=== PATIENT | male | born 1940 | race Caucasian/White ===

== ENCOUNTER → 2017-10-27 09:23 | Outpatient (CLI) | payer MEDICARE, SELFPAY ==
--- NOTE | 2017-10-27 11:11 | RAD_ITS ---
STUDY: X-RAY - LUMBAR SPINE REASON FOR EXAM: Male, 77 years old. Chronic low back pain. TECHNIQUE: 3 view(s) of the lumbar spine were obtained. COMPARISON: Comparison is made with prior study dated February 04, 2017. FINDINGS: Normal lumbar lordosis. There is no substantial scoliosis. Grade 1 anterior listhesis of L4 on L5. There is multilevel endplate spondylosis of the lumbar vertebrae. There is multi-level degenerative disc disease with multi-level disc space narrowing. Facet joint osteoarthritis. Transitional vertebrae at the lumbosacral junction. Phleboliths are seen within the pelvis. RAD/Lumbar Spine 2 or 3 Views IMPRESSION: Degenerative changes of the spine, as detailed above. Electronically Signed: Cristiano Allen MD at 15:11 EST Tel [phone], Service support ,
[2017-10-27 11:40] LABS: Absolute Lymphocyte Count 1.62 X10^3/ul (0.83-4.51); Absolute Neutrophil Count 3.8 X10^3/uL (2.0-7.7); Basophil# 0.04 X10^3/uL; Basophil% 0.6 % (0-1); Eosinophils% 3.2 % (0-5); Hemoglobin 14.2 g/dl (13.0-16.5); Lymphocyte # 1.62 X10^3/ul (4.0); Lymphocyte % 26.3 % (19-41); Mean Corp Hgb Conc 32.3 g/gl (32-36); Mean Corpuscular Hgb 28.3 pg (27.0-32.0); Mean Corpuscular Volume 87.6 fL (80-94); Mean Platelet Vol. 10.1 fl (6.2-12.0); Monocyte# 0.49 X10^3/uL; Neutrophil # 3.81 X10^3/uL (2.7-7.7); Neutrophil % 61.9 % (47-70); Platelet Count 217 K/mm3 (150-450); RBC Distribution Width CV 14.9 % (11.6-14.6); RBC Distribution Width SD 47.7 fl (35.1-43.9); Red Blood Count 5.02 M/mm3 (4.6-6.2); White Blood Count 6.2 K/mm3 (4.4-11.0)
[2017-10-27 11:44] LABS: POSITIVE COUNT NO; POSITIVE DIFFERENTIAL NO; POSITIVE MORPHOLOGY NO
[2017-10-27 12:08] LABS: ALB/GLOB Ratio 0.9 RATIO (0.9-2.4); AST(SGOT) 30 U/L (15-37); Alanine Aminotransfer ALT/SGPT 42 U/L (16-61); Albumin, Serum 3.8 g/dL (3.2-5.0); Alkaline Phosphatase 44 U/L (45-117); Anion Gap 8 (5-15); BUN 20 mg/dL (7-18); BUN/Creat Ratio 19.4 RATIO (10-20); Calcium,Total 9.2 mg/dL (8.5-10.1); Chloride 105 mmol/L (98-107); Creatinine, Serum 1.03 mg/dL (0.70-1.30); EST Glomerular Filtration Rate 75 mL/min (>60); Est Glom Filt Rate - Afr Amer 90 mL/min (>60); Globulin 4.2 g/dL (2.2-4.2); Glucose 102 mg/dL (70-110); Potassium 3.6 mmol/L (3.5-5.1); Sodium Level 140 mmol/L (136-145); Thyroid Stim Hormone (TSH) 1.14 uIU/mL (0.358-3.74)
== END ==
PROVIDERS: Family Provider Family Medicine Geriatric Medicine; PCP Family Medicine Geriatric Medicine; Visit Provider Family Medicine Geriatric Medicine
DX: I10 Essential (primary) hypertension (principal); M54.5 Low back pain
CPT/HCPCS: 36415; 72100; 80053; 84443; 85025

== ENCOUNTER → 2018-04-13 16:01 | Outpatient (CLI) | payer MEDICARE, SELFPAY ==
[2018-04-13 17:11] LABS: International Normalized Ratio 1.1
[2018-04-13 17:12] LABS: Partial Thromboplast Time 26.8 Seconds (24.1-36.2)
[2018-04-13 17:16] LABS: Absolute Lymphocyte Count 1.96 X10^3/ul (0.83-4.51); Absolute Neutrophil Count 4.3 X10^3/uL (2.0-7.7); Basophil# 0.04 X10^3/uL; Basophil% 0.6 % (0-1); Eosinophil# 0.21 X10^3/uL; Eosinophils% 2.9 % (0-5); Hemoglobin 13.3 g/dl (13.0-16.5); Lymphocyte # 1.96 X10^3/ul (4.0); Lymphocyte % 27.5 % (19-41); Mean Corp Hgb Conc 32.4 g/gl (32-36); Mean Corpuscular Hgb 28.6 pg (27.0-32.0); Mean Corpuscular Volume 88.2 fL (80-94); Mean Platelet Vol. 10.1 fl (6.2-12.0); Monocyte# 0.61 X10^3/uL; Monocyte% 8.5 % (0-10); Neutrophil % 60.2 % (47-70); Platelet Count 235 K/mm3 (150-450); RBC Distribution Width CV 14.7 % (11.6-14.6); RBC Distribution Width SD 47.3 fl (35.1-43.9); Red Blood Count 4.65 M/mm3 (4.6-6.2); White Blood Count 7.1 K/mm3 (4.4-11.0)
[2018-04-13 17:24] LABS: POSITIVE COUNT NO; POSITIVE DIFFERENTIAL NO; POSITIVE MORPHOLOGY NO
[2018-04-13 18:37] LABS: Anion Gap 9 (5-15); BUN 22 mg/dL (7-18); Calcium,Total 9.3 mg/dL (8.5-10.1); Chloride 108 mmol/L (98-107); EST Glomerular Filtration Rate 69 mL/min (>60); Est Glom Filt Rate - Afr Amer 84 mL/min (>60); Glucose 69 mg/dL (74-106); Sodium Level 143 mmol/L (136-145)
== END ==
PROVIDERS: Family Provider Family Medicine Geriatric Medicine; PCP Family Medicine Geriatric Medicine; Visit Provider Family Medicine Geriatric Medicine
DX: Z01.810 Encounter for preprocedural cardiovascular examination (principal); Z01.818 Encounter for other preprocedural examination
CPT/HCPCS: 36415; 80048; 85025; 85610; 85730

== ENCOUNTER → 2018-07-04 15:27 | Outpatient (CLI) | payer MEDICARE, SELFPAY ==
[2018-07-04 16:33] LABS: Absolute Lymphocyte Count 2.36 X10^3/ul (0.83-4.51); Absolute Neutrophil Count 6.6 X10^3/uL (2.0-7.7); Basophil# 0.05 X10^3/uL; Basophil% 0.5 % (0-1); Eosinophil# 0.22 X10^3/uL; Eosinophils% 2.2 % (0-5); Hematocrit 41.4 % (40-54); Hemoglobin 13.1 g/dl (13.0-16.5); Lymphocyte # 2.36 X10^3/ul (4.0); Lymphocyte % 23.8 % (19-41); Mean Corp Hgb Conc 31.6 g/gl (32-36); Mean Corpuscular Hgb 27.4 pg (27.0-32.0); Mean Corpuscular Volume 86.6 fL (80-94); Mean Platelet Vol. 9.7 fl (6.2-12.0); Monocyte# 0.68 X10^3/uL; Monocyte% 6.9 % (0-10); Neutrophil # 6.59 X10^3/uL (2.7-7.7); Neutrophil % 66.5 % (47-70); Platelet Count 249 K/mm3 (150-450); Red Blood Count 4.78 M/mm3 (4.6-6.2); White Blood Count 9.9 K/mm3 (4.4-11.0)
[2018-07-04 16:36] LABS: POSITIVE COUNT NO; POSITIVE DIFFERENTIAL NO; POSITIVE MORPHOLOGY NO
[2018-07-04 17:15] LABS: Vitamin D,25 Hydroxy 28.7 ng/mL (29.95-100.01)
[2018-07-04 17:19] LABS: ALB/GLOB Ratio 0.8 RATIO (0.9-2.4); AST(SGOT) 27 U/L (15-37); Alanine Aminotransfer ALT/SGPT 34 U/L (16-61); Albumin, Serum 3.4 g/dL (3.2-5.0); Alkaline Phosphatase 50 U/L (45-117); Anion Gap 8 (5-15); BUN 17 mg/dL (7-18); BUN/Creat Ratio 17.6 RATIO (10-20); Calcium,Total 9.2 mg/dL (8.5-10.1); Chloride 105 mmol/L (98-107); Creatinine, Serum 0.97 mg/dL (0.70-1.30); EST Glomerular Filtration Rate 80 mL/min (>60); Est Glom Filt Rate - Afr Amer 97 mL/min (>60); Globulin 4.2 g/dL (2.2-4.2); Glucose 88 mg/dL (74-106); Protein, Total 7.6 g/dL (6.4-8.2); Sodium Level 142 mmol/L (136-145); Thyroid Stim Hormone (TSH) 1.06 uIU/mL (0.358-3.74)
== END ==
PROVIDERS: Family Provider Family Medicine Geriatric Medicine; PCP Family Medicine Geriatric Medicine; Visit Provider Family Medicine Geriatric Medicine
DX: I10 Essential (primary) hypertension (principal); E55.9 Vitamin D deficiency, unspecified
CPT/HCPCS: 36415; 80053; 82306; 84443; 85025

== ENCOUNTER 2018-07-18 17:42 | Emergency (ER) | payer MEDICARE, SELFPAY ==
[2018-07-18 17:44] VITALS: BP 175/93; PULSE 71; RESP 16; TEMP 37.1; O2SAT 97; BMI 31.7
[2018-07-18] MEDS: Penicillin Vk 250 MG Tablet 500 MG PO (18:14)
--- NOTE | 2018-07-18 18:35 | ED.VISSUMM ---
- ER Visit Summary Date of Service: 07/18/18 Chief Complaint: Lip laceration History of Present Illness: The patient is a 78 M who tripped on a step and fell striking his face. He suffered a lip laceration. He denies loss of consciousness, headache, neck pain. His tetanus is up-to-date. He takes baby aspirin, but no other anticoagulants. Physical Examination: Blood pressure 175/93, other vitals normal. Patient sitting upright in bed. Head neck examination is significant for a 2 cm laceration to the lower lip with significant lower lip swelling. He does have chipped areas to the very inferior border of the maxillary central incisors. Teeth are stable. There is no C-spine tenderness. Heart is regular rate and rhythm. Lungs clear. Neuro exam is unremarkable. Test Results: [] Emergency Department Course and Treatment: Wound is anesthetized with 3 cc 1% lidocaine locally. Wound is cleansed and irrigated. Skin is closed with 7 simple interrupted sutures of 5-0 absorbable Vicryl. Patient is treated with PenMaryVee K will continue this at home. Treatment Plan: [] Disposition: Discharge Impression: Lip laceration status post suture This note was generated with [employer] dictation software. It may contain incorrect words, spelling, and punctuation that were not noted in review of the chart prior to signing ED Disposition - Plan for ED Patient: Chief Complaint: Laceration Referrals: Omkar Lawrence Chi, MD [Primary Care Provider] -
--- NOTE | 2018-07-18 18:36 | ED.DEP ---
ED Disposition - Plan for ED Patient: Disposition: Home or Assisted Living Chief Complaint: Laceration Instructions: ED Laceration Mouth Prescriptions: Penicillin V Potassium 500 mg PO 4X/DAY #40 tablet Referrals: Omkar Lawrence Chi, MD [Primary Care Provider] - 1-2 Weeks
[2018-07-18 18:43] VITALS: BP 154/87; PULSE 61; RESP 17; O2SAT 95
== END 2018-07-18 18:46 | disposition home or self-care (01) ==
PROVIDERS: Emergency Provider Emergency Medicine; Family Provider Family Medicine Geriatric Medicine; PCP Family Medicine Geriatric Medicine
DX: S01.511A Laceration without foreign body of lip, initial encounter (principal); S02.5XXA Fracture of tooth (traumatic), initial encounter for closed fracture; W10.9XXA Fall (on) (from) unspecified stairs and steps, initial encounter; Y93.9 Activity, unspecified; Y92.9 Unspecified place or not applicable; Y99.9 Unspecified external cause status; I10 Essential (primary) hypertension; N40.0 Benign prostatic hyperplasia without lower urinary tract symptoms; Z79.82 Long term (current) use of aspirin; Z87.891 Personal history of nicotine dependence; Z79.899 Other long term (current) drug therapy
CPT/HCPCS: 12011; 99283

== ENCOUNTER → 2019-01-04 11:12 | Outpatient (CLI) | payer MEDICARE, SELFPAY ==
[2019-01-04 12:52] LABS: Absolute Neutrophil Count 3.4 X10^3/uL (2.0-7.7); Basophil# 0.04 X10^3/uL; Basophil% 0.6 % (0-1); Eosinophil# 0.36 X10^3/uL; Eosinophils% 5.7 % (0-5); Hematocrit 42.1 % (40-54); Hemoglobin 13.5 g/dl (13.0-16.5); Lymphocyte % 31.8 % (19-41); Mean Corp Hgb Conc 32.1 g/gl (32-36); Mean Corpuscular Hgb 27.8 pg (27.0-32.0); Mean Corpuscular Volume 86.6 fL (80-94); Mean Platelet Vol. 9.9 fl (6.2-12.0); Monocyte# 0.52 X10^3/uL; Monocyte% 8.3 % (0-10); Neutrophil # 3.37 X10^3/uL (2.7-7.7); Neutrophil % 53.6 % (47-70); Platelet Count 218 K/mm3 (150-450); RBC Distribution Width CV 15.1 % (11.6-14.6); RBC Distribution Width SD 47.9 fl (35.1-43.9); Red Blood Count 4.86 M/mm3 (4.6-6.2); White Blood Count 6.3 K/mm3 (4.4-11.0)
[2019-01-04 12:58] LABS: POSITIVE COUNT NO; POSITIVE DIFFERENTIAL NO; POSITIVE MORPHOLOGY NO
[2019-01-04 13:07] LABS: Vitamin D,25 Hydroxy 34.7 ng/mL (29.95-100.01)
[2019-01-04 13:10] LABS: AST(SGOT) 30 U/L (15-37); Alanine Aminotransfer ALT/SGPT 35 U/L (16-61); Albumin, Serum 3.6 g/dL (3.2-5.0); Alkaline Phosphatase 44 U/L (45-117); Anion Gap 7 (5-15); BUN 26 mg/dL (7-18); Calcium,Total 9.3 mg/dL (8.5-10.1); Chloride 107 mmol/L (98-107); Creatinine, Serum 1.04 mg/dL (0.70-1.30); EST Glomerular Filtration Rate 74 mL/min (>60); Est Glom Filt Rate - Afr Amer 89 mL/min (>60); Globulin 3.7 g/dL (2.2-4.2); Glucose 94 mg/dL (74-106); Potassium 3.9 mmol/L (3.5-5.1); Protein, Total 7.3 g/dL (6.4-8.2); Sodium Level 141 mmol/L (136-145)
== END ==
PROVIDERS: Family Provider Family Medicine Geriatric Medicine; PCP Family Medicine Geriatric Medicine; Referring Provider Family Medicine Geriatric Medicine; Visit Provider Family Medicine Geriatric Medicine
DX: I10 Essential (primary) hypertension (principal); E55.9 Vitamin D deficiency, unspecified
CPT/HCPCS: 36415; 80053; 82306; 84443; 85025

== ENCOUNTER 2019-03-10 10:10 | Day surgery (SDC) | payer MEDICARE, SELFPAY ==
[2019-03-03 09:17] VITALS: BP 153/89; PULSE 64; RESP 16; TEMP 36.8; O2SAT 95; BMI 32.5
--- NOTE | 2019-03-03 09:22 | SDCEKG_ITS ---
Test Reason : Blood Pressure : / mmHG Vent. Rate : 061 BPM Atrial Rate : 061 BPM P-R Int : 170 ms QRS Dur : 128 ms QT Int : 436 ms P-R-T Axes : 050 -46 034 degrees QTc Int : 438 ms Normal sinus rhythm Left axis deviation Non-specific intra-ventricular conduction block Abnormal ECG Confirmed by MARYANA WILLOUGHBY, CECILIA ([id number]), newspaper copy editor SUSIE JIMENEZ ([id number]) on 03/07/2019 8:55:46 AM Referred By: Zac Vega Confirmed By:CECILIA MIJARES MD
[2019-03-10] VITALS (11 sets, daily range): BP systolic 128–177; BP diastolic 79–99; PULSE 50–74; RESP 16–18; TEMP 36.7–37.5; O2SAT 92–99; BMI 32.5
--- NOTE | 2019-03-10 11:27 | DCINST_ITS ---
Discharge Diet: Light diet - advance as tolerated Discharge Activity: Return to Normal Activity Call your doctor if your incision/area has: Continuous Slow Oozing, Sudden Increased Bleeding Call your doctor if you observe: Fever of 101 or Higher Suture Line Care: Avoid Pulling/Pushing, Avoid Pinching/Bending Allergies/Adverse Reactions: Allergies prednisone Adverse Reaction (Verified 03/03/19 09:17) ORAL THRUSH Medications to take at Discharge Amlodipine Besylate/Benazepril [Amlodipine-Benazepril 5-20 mg] 1 tab PO BID 11/02/14 Aspirin [Aspirin, Baby] 81 mg PO DAILY@0800 11/02/14 Metoprolol Tartrate 50 mg PO BID 11/02/14 Multivitamins,Therapeutic [Multivitamin] 1 tablet PO DAILY 11/02/14 Docusate Sodium [Colace] 100 mg PO BID PRN PRN #10 capsule 08/27/15 Biotin 10,000 mcg PO DAILY 03/03/19 Calcium Carbonate/Vitamin D3 [Calcium 500-Vit D3 600 Caplet] 1 each PO DAILY 03/03/19 Cyanocobalamin [Vitamin B12] 1,200 mcg SL DAILY@0800 03/03/19 [place]-3 Fatty Acids/Fish Oil [[place] 3 Fish Oil Softgel] 1 each PO DAILY 03/03/19 Pravastatin [Pravachol] 40 mg PO QHS 03/03/19 [address] [place] 320 mg PO DAILY 03/03/19 Tamsulosin HCl [Flomax] 0.4 mg PO QHS 03/03/19 Acetaminophen [Tylenol Extra Strength] 500 mg PO Q4H PRN PRN #20 tab 03/10/19 Ciprofloxacin [Cipro] 500 mg PO BID #6 tab 03/10/19 Ibuprofen 600 mg PO Q6H PRN PRN #20 tab 03/10/19 The following prescriptions were given: Acetaminophen [Tylenol Extra Strength] 500 mg PO Q4H PRN PRN #20 tab PRN Reason: Pain Ibuprofen 600 mg PO Q6H PRN PRN #20 tab PRN Reason: Pain Ciprofloxacin [Cipro] 500 mg PO BID #6 tab Primary Care Physician: Omkar Lawrence Chi, MD [Primary Care Provider] - Test Results: Test results from this visit will be discussed in further detail at your follow- up appointment, if applicable. Please Follow Up With: Zac Vega MD When: in 2 weeks, please call to make an appointment.
[2019-03-10] MEDS: Cefazolin 2 GM in 0.9% Normal Saline 100 ML IV (11:44)
--- NOTE | 2019-03-10 11:50 | PROS_PTH ---
PATIENT: ALEXANDER PETIT LOC: [facility] [place][id number] AGE/SX: 78/M ROOM: RE03/10/[address]: Dr. Zac Vega MD : [id number] BED: DIS: 03/11/2019 SPEC #: [id number] RECD: 03/10/19 12:55 STATUS: GISELA REKatie #: [id number] PETE: 03/10/19 11:[address]: Zac Vega DEPT: SURGICAL PATHOLOGY RECD BY: Samir Espinoza ENTERED: 03/10/19 13:36 SP TYPE: TURP OTHR DR: Dr. Omkar Lawrence MD Tissues: Prostate, NOS Procedures: Surgery Specimen Level IV HEADER OPERATION: Cystoscopy, TUR of prostate PRE-OP DIAGNOSIS: Benign prostatic hyperplasia with lower urinary tract symptoms; frequent micturition; nocturia; urgency of bladder TISSUE SUBMITTED: Prostate tissue MICROSCOPIC DIAGNOSIS Prostate tissue, TUR: Benign prostatic hyperplasia, glandular and stromal type. Chronic inflammation. SJ:alison 03/13/19 MICROSCOPIC DESCRIPTION Slides are reviewed. GROSS DESCRIPTION Received is one container labeled with the patient's name and designated prostate tissue. The specimen consists of multiple irregular fragments of pink-morales, rubbery, soft tissue that in aggregate weigh 11.9 gm and measure in aggregate 6.5 x 6 x 0.2 cm. The entire specimen is submitted in nine cassettes. / AM:alison 03/10/19 TC:5 CPT: 64973
--- NOTE | 2019-03-10 12:28 | OP.PCM_ITS ---
Report of Operation Date of Procedure: 03/10/19 Pre-Operative Diagnosis: BPH with obstruction Post-Operative Diagnosis: The same Surgery/Procedure Performed:: Transurethral resection of the prostate Description of Surgical Findings:: Indication 78-year-old male with large prostate with a lot of obstruction and urinary symptoms we did an evaluation and recommended the option of a TURP as a reasonable choice to alleviate his urinary symptoms he understands the risk of the surgery include bleeding infection scar tissue formation. Patient was taken back to the operating room at the smooth induction of general anesthesia he was placed in dorsolithotomy position went into the bladder with a 24 Montenegrin noncontinuous flow resectoscope he did have a large median lobe and he had lateral tissue I proceeded with resection of the median lobe then resected the lateral tissue in the right side and the lateral tissue in the left side all the chips were Ellik out out of the bladder after complete resection of the prostate with a wide open channel from the verumontanum into the bladder I inspected the bladder the left and right ureteral orifice were in place all the chips were Ellik out there is no tumors stones within the bladder placed a 22 Montenegrin catheter into the bladder and continuous irrigation he was taken back to the PACU in good condition the urine was clear. As a complete resection of the prostate. Type of Anesthesia:: General Drains: 22fr 3 way. - Admit VTE Documentation VTE Present on Admission: No VTE Mechan Device Prophylaxis: SCD's
[2019-03-10] MEDS: 0.9% Normal Saline 1,000 ML 75 ML IV (14:10)
[2019-03-10] MEDS: Cefazolin 1 GM/50 ML BAG IV (21:29)
[2019-03-10] MEDS: Metoprolol Tartrate 50 MG Tablet PO (21:31)
[2019-03-10] MEDS: Pravastatin 40 MG Tablet PO (21:31)
[2019-03-10] MEDS: Docusate Sodium 100 MG Capsule PO (21:34)
[2019-03-11] MEDS: Cefazolin 1 GM/50 ML BAG IV (03:28)
[2019-03-11] MEDS: 0.9% Normal Saline 1,000 ML 75 ML IV (03:29)
[2019-03-11 03:45] VITALS: BP 133/71; PULSE 54; RESP 16; TEMP 36.8; O2SAT 93
[2019-03-11 06:19] LABS: Hematocrit 40.4 % (40-54); Mean Corp Hgb Conc 32.2 g/gl (32-36); Mean Corpuscular Hgb 27.6 pg (27.0-32.0); Mean Corpuscular Volume 85.8 fL (80-94); Mean Platelet Vol. 9.4 fl (6.2-12.0); Platelet Count 231 K/mm3 (150-450); RBC Distribution Width SD 47.1 fl (35.1-43.9); Red Blood Count 4.71 M/mm3 (4.6-6.2); White Blood Count 11.5 K/mm3 (4.4-11.0)
[2019-03-11 06:27] LABS: Scan Indicated on CBC? Y/N NO
[2019-03-11 06:38] LABS: Anion Gap 9 (5-15); BUN 17 mg/dL (7-18); BUN/Creat Ratio 15.9 RATIO (10-20); Calcium,Total 8.3 mg/dL (8.5-10.1); Chloride 105 mmol/L (98-107); Creatinine, Serum 1.07 mg/dL (0.70-1.30); EST Glomerular Filtration Rate 71 mL/min (>60); Est Glom Filt Rate - Afr Amer 86 mL/min (>60); Estimated Creatinine Clearance 58.73 ml/min; Glucose 117 mg/dL (74-106); Potassium 3.8 mmol/L (3.5-5.1); Sodium Level 140 mmol/L (136-145)
[2019-03-11 07:59] VITALS: BP 148/68; PULSE 53; RESP 16; TEMP 36.6; O2SAT 92
[2019-03-11 09:41] VITALS: PULSE 60
[2019-03-11] MEDS: Metoprolol Tartrate 50 MG Tablet PO (09:41)
[2019-03-11] MEDS: Lisinopril 20 MG Tablet PO (09:42)
[2019-03-11] MEDS: amLODIPine 5 MG Tablet PO (09:42)
[2019-03-11] MEDS: Pantoprazole Sodium 40 MG Tablet PO (09:50)
[2019-03-11] MEDS: Docusate Sodium 100 MG Capsule PO (09:50)
[2019-03-11 11:54] VITALS: BP 137/76; PULSE 58; RESP 16; TEMP 36.8; O2SAT 95
== END 2019-03-11 11:45 | disposition home or self-care (01) ==
LOC: SDC 10:16 → AC 10:17 → MS3 10:25
PROVIDERS: Family Provider Family Medicine Geriatric Medicine; PCP Family Medicine Geriatric Medicine; Referring Provider Urology; Visit Provider Urology
PROC: (CPT 52601; principal; 2019-03-10 11:40)
DX: N40.1 Benign prostatic hyperplasia with lower urinary tract symptoms (principal); N41.1 Chronic prostatitis; N13.8 Other obstructive and reflux uropathy; R35.1 Nocturia; R35.0 Frequency of micturition; R39.15 Urgency of urination; N39.498 Other specified urinary incontinence; I10 Essential (primary) hypertension; E78.00 Pure hypercholesterolemia, unspecified; Z79.82 Long term (current) use of aspirin; Z79.899 Other long term (current) drug therapy
CPT/HCPCS: 52601; 36415; 80048; 85027; 88305; 93005; J7030; J7120; J2405

== ENCOUNTER 2019-03-28 02:45 | Observation (INO) | payer MEDICARE, SELFPAY ==
[2019-03-10 14:02] VITALS: BMI 32.5
[2019-03-28] VITALS (9 sets, daily range): BP systolic 135–190; BP diastolic 72–116; PULSE 66–93; RESP 16–18; TEMP 36.5–37; O2SAT 93–98; BMI 31.7; BMI 30.9
--- NOTE | 2019-03-28 03:33 | ED.VISSUMM ---
- ER Visit Summary Date of Service: 03/28/19 Chief Complaint: Urinary retention History of Present Illness: The patient is a 79 M who underwent a TURP on March [address] Vega. He states that he has had some pink urine and today noticed some clots in the urine. He went to the office was not having any retention. Tonight however the clots got larger and by late tonight when he got up to urinate he is unable to do so so he came to the department. Once here in the department in triage she attempted to urinate large amounts of clots came out. He states he had to be on continuous bladder irrigation after the surgery. Physical Examination: Afebrile vital signs stable Gen: Well-nourished well-developed Head: Normocephalic atraumatic Eyes: Perrl EOMI ENT: TMs clear no rhinorrhea moist mucous membranes Neck: Supple no lymphadenopathy no JVD nontender CVS: Regular rate rhythm no murmurs normal S1-S2 Respiratory: No distress clear to auscultation bilaterally chest nontender Abdomen: Soft nontender nondistended normal bowel sounds no masses Back: Nontender Extremity: Nontender no edema Skin: Normal color no rash Neuro: alert orientated ?3 CN II-XII intact normal strength sensation Psych: Normal affect normal mood Emergency Department Course and Treatment: I spoke with Dr. Vega. We will place him on continuous bladder irrigation and admit to hospital. Patient is comfortable with this plan and appreciative. Impression: 1. Acute urinary retention 2. Gross hematuria This note was generated with [employer] dictation software. It may contain incorrect words, spelling, and punctuation that were not noted in review of the chart prior to signing ED Disposition - Plan for ED Patient: Referrals: Omkar Lawrence Chi, MD [Primary Care Provider] -
[2019-03-28] MEDS: 0.9% Normal Saline 1,000 ML 50 ML IV (05:06)
[2019-03-28] MEDS: 0.9% NaCl Peripheral Flush Adult/Peds IV (05:08)
[2019-03-28] MEDS: Cefazolin 1 GM/50 ML BAG IV ×3 (05:21→22:09)
[2019-03-28] MEDS: Acetaminophen 500 MG Tablet PO ×2 (07:23→15:09)
--- NOTE | 2019-03-28 07:42 | HP.PCM_ITS ---
History and Physical Date of Admission: 03/28/19 CC/HPI: ALEXANDER PETIT is a 78 year-old male patient who was referred by ERICA SUGGS M.D. who is here for symptoms of enlarged prostate. 78 yo male new pt referred for BPH, He c/o frequency day and night, urgency, can have UUI, feels like bladder doesn't empty. Dr Mcmullen at [facility] evaluated him about 3 yrs ago, CT and cysto, put him on tamsulosin. Pt has also continued to take saw palmetto. He has been treated with Flomax and Rapaflo. The patient has never had a surgical procedure for bladder outlet obstruction to his prostate. He does not have any family members who have been diagnosed with prostate cancer. He underwent a TURP recently pathology was benign, he presented to the hospital with gross hematuria a few weeks after his surgery he will be admitted for bladder irrigation. He AUA Symptom Score: He never has the sensation of not emptying his bladder completely after finishing urinating. Almost always he has to urinate again fewer than two hours after he has finished urinating. Less than 20% of the time he has to start and stop again several times when he urinates. Almost always he finds it difficult to postpone urination. He never has a weak urinary stream. He never has to push or strain to begin urination. He has to get up to urinate 5 or more times from the time he goes to bed until the time he gets up in the morning. Calculated AUA Symptom Score: 16 QOL Score: He would feel unhappy if he had to live with his urinary condition the way it is now for the rest of his life. Calculated QOL Symptom Score: 5 ALLERGIES: Steroids MEDICATIONS: Amlodipine Besilate Aspir 81 Biotin Calcium + D3 Metoprolol Tartrate Multivitamin [place] 3 Pravastatin Sodium Saw [place] Tamsulosin Hcl 0.4 mg capsule Vitamin B12 PSH: None NON- PSH: Colonoscopy Foot Surgery Knee Surgery (Unspecified) Patient documented to have received pneumococcal vaccination Shoulder Surgery (Unspecified) PMH: Benign prostatic hyperplasia with lower urinary tract symptoms - 01/23/2019 Urgency of urination - 01/23/2019 Frequency of micturition Nocturia Unspecified urinary incontinence NON- PMH: Essential (primary) hypertension Immunizations: None FAMILY HISTORY: Strokes - Father, Grandfather SOCIAL HISTORY: Marital Status: Preferred Language: Armenian; Ethnicity: Not Or ; Race: White Current Smoking Status: Patient has never smoked. Does not use smokeless tobacco. Has never drank. Does not use drugs. Drinks 4+ caffeinated drinks per day. Has not had a blood transfusion. REVIEW OF SYSTEMS: Constitutional: Patient denies fever, chills, weight loss, and weight gain. Eyes: Patient denies blurry vision, cataracts, and glaucoma. Ears, Nose, Mouth, Throat: Patient denies hearing loss, sinus infections, and sleep apnea. Cardiovascular: Patient denies chest pains, swollen ankles, irregular heartbeat, and pacemaker/defib. Respiratory: Patient denies shortness of breath, wheezing, oxygen, and cpap machine. Gastrointestinal: Patient denies nausea, vomiting, abdominal pain, diarrhea, and constipation. Genitourinary: Patient has gross hematuria and retention of urine. History of stones, difficulty starting stream, weak stream/scanty, and bedwetting. Musculoskeletal: Patient denies sore muscles, back pain, and gout. Integumentary/Skin: Patient denies rash, skin cancer, and chronic itching. Neurological: Patient denies falling/unsteady, paralysis, and stroke/tia. Hematologic/Lymphatic: Patient denies abnormal bleeding, blood transfusion, swollen lymph nodes, deep venous thrombosis, and pulmonary embolism. VITAL SIGNS: 02/09/2019 04:00 PM Weight 226 lb / 102.51 kg Height 69 in / 175.26 cm BP 142/90 mmHg PHYSICAL EXAMINATION: Anus and Perineum: No hemorrhoids. No anal stenosis. No rectal fissure, no anal fissure. No edema, no dimple, no perineal tenderness, no anal tenderness. Scrotum: No lesions. No edema. No cysts. No warts. Epididymides: Right: no spermatocele, no masses, no cysts, no tenderness, no induration, no enlargement. Left: no spermatocele, no masses, no cysts, no tenderness, no induration, no enlargement. Testes: No tenderness, no swelling, no enlargement left testes. No tenderness, no swelling, no enlargement right testes. Normal location left testes. Normal location right testes. No mass, no cyst, no varicocele, no hydrocele left testes. No mass, no cyst, no varicocele, no hydrocele right testes. Urethral Meatus: Normal size. No lesion, no wart, no discharge, no polyp. Normal location. Penis: Circumcised, no warts, no cracks. No dorsal Peyronie's plaques, no left corporal Peyronie's plaques, no right corporal Peyronie's plaques, no scarring, no warts. No balanitis, no meatal stenosis. Prostate: Prostate about 50 grams. Left lobe normal consistency, right lobe normal consistency. Symmetrical lobes. No prostate nodule. Left lobe no tenderness, right lobe no tenderness. Seminal Vesicles: Nonpalpable. Sphincter Tone: Normal sphincter. No rectal tenderness. No rectal mass. MULTI-SYSTEM PHYSICAL EXAMINATION: Constitutional: Well-nourished. No physical deformities. Normally developed. Good grooming. Neck: Neck symmetrical, not swollen. Normal tracheal position. Respiratory: No labored breathing, no use of accessory muscles. Normal breath sounds. Cardiovascular: Regular rate and rhythm. No murmur, no gallop. Normal temperature, normal extremity pulses, no swelling, no varicosities. Lymphatic: No enlargement of neck, axillae, groin. Neurologic / Psychiatric: Oriented to time, oriented to place, oriented to person. No depression, no anxiety, no agitation. Gastrointestinal: No mass, no tenderness, no rigidity, non obese abdomen. Eyes: Normal conjunctivae. Normal eyelids. Musculoskeletal: Normal gait and station of head and neck. PAST DATA REVIEWED: Source Of History: Patient ASSESSMENT: ICD-10 Details 1 : Benign prostatic hyperplasia with lower urinary tract symptoms - N40.1 2 Frequency of micturition - R35.0 3 Nocturia - R35.1 4 Urgency of urination - R39.15 Status post TURP for obstruction, presented with bleeding to the hospital, pathology was benign, will continue with bladder irrigation until urine is clear may consider surgical intervention if does not stop bleeding.
[2019-03-28] MEDS: Metoprolol Tartrate 50 MG Tablet PO ×2 (08:21→22:09)
[2019-03-28] MEDS: Multivitamins,Therapeutic Tablet 1 TABLET PO (08:21)
[2019-03-28] MEDS: Calcium Carb/Vitamin D 1 TABLET Tablet PO (08:22)
[2019-03-28] MEDS: amLODIPine 5 MG Tablet PO ×2 (08:22→22:09)
[2019-03-28] MEDS: Cyanocobalamin 500 MCG Tablet 1000 MCG PO (08:22)
[2019-03-28] MEDS: Lisinopril 20 MG Tablet PO ×2 (08:23→22:09)
[2019-03-28] MEDS: Docusate Sodium 100 MG Capsule PO (08:24)
--- NOTE | 2019-03-28 11:25 | CASEMGMT ---
Patient thought his Healthcare POA and Healthcare LW were on file. However, they were not. SW called his Primary Care Doctor's office and they faxed a copper plate printer of the documents. They were then placed in his paper chart. Hallie NEVAREZ
--- NOTE | 2019-03-28 15:50 | CASEMGMT ---
RN ALLA ASSESSMENT DIRECTOR CM to room to meet with patient for initial transition planning/care coordination assessment. SPRING GOLD introduced self and role at [facility]. Pt voices understanding and consents to assessment at this time. Pt resting in bed in no distress at this time. Pt is A/O at this time and answers all questions appropriately. Care providers, pharmacy, and demographics verified/updated at this time. PCP: Howard Specialists: Gary--urology, Teena--cardiology Preferred Pharmacy: [facility] Insurance: [employer] Secure Prescription Benefit: [employer] Living Will/HPOA: Has both HCPOA and LW. States has completed new paperwork recently (Names of POA has not changed). Pt states he will see if his can bring in new forms to have put on file @ [facility]. LNOK: . 3 adult children Living Arrangements: Lives with in one-story home. No steps to enter. Independent with all ADL's. and pt share home mgmt tasks. Transportation: Pt states drives self and states no transportation concerns at this time. will drive pt home @ d/c DME: Denies using any DME and denies needs. HHC/SNF: No history of either and denies needs. No needs identified. Pt wishes to return home. Pt states that if he does end up going home with a catheter that he feels comfortable being able to manage the catheter @ home with his wifes assistance as long as someone instructs them on how to care for it. States his would be able to be home with him tonight if he would get discharged with a catheter this evening and would be able to assist him if needed. Pt states, though, that his has a sleep study scheduled for Wednesday and has concerns if he would have problems during the night Wednesday night that he will be alone and not have anyone to assist him. Pt stated his adult children have to work during the day and would not be able to stay the night. Pt reminded that is a holiday. Pt stated he had forgotten about being a holiday and stated he would check to see if someone would be available to stay with him during the night Wednesday night while his is at her sleep study. Pt states does not smoke or drink ETOH. CM to follow for any discharge planning/needs. Pt voices no further concerns/needs at this time. Advised pt to ask for CM if any further questions/concerns/needs arise. Voices understanding. PLAN: Home w/spousal and family support and discharge plans in place. Bernabe HAMILTONN RN CM
[2019-03-28] MEDS: Tamsulosin HCl 0.4 MG Capsule PO (22:09)
[2019-03-29] VITALS (7 sets, daily range): BP systolic 117–141; BP diastolic 59–87; PULSE 59–80; RESP 16; TEMP 36.7–37.2; O2SAT 94–96
[2019-03-29] MEDS: 0.9% Normal Saline 1,000 ML 50 ML IV ×2 (01:59→23:04)
[2019-03-29] MEDS: Cefazolin 1 GM/50 ML BAG IV ×3 (05:39→21:10)
[2019-03-29] MEDS: Metoprolol Tartrate 50 MG Tablet PO ×2 (07:43→21:09)
[2019-03-29] MEDS: Multivitamins,Therapeutic Tablet 1 TABLET PO (07:43)
[2019-03-29] MEDS: Lisinopril 20 MG Tablet PO ×2 (07:44→21:10)
[2019-03-29] MEDS: Calcium Carb/Vitamin D 1 TABLET Tablet PO (07:44)
[2019-03-29] MEDS: Cyanocobalamin 500 MCG Tablet 1000 MCG PO (07:44)
[2019-03-29] MEDS: amLODIPine 5 MG Tablet PO ×2 (07:44→21:09)
[2019-03-29] MEDS: Docusate Sodium 100 MG Capsule PO (07:46)
--- NOTE | 2019-03-29 14:28 | NURSING ---
manually irrigated pinzon for few small clots
--- NOTE | 2019-03-29 14:56 | CASEMGMT ---
Intro role of CM to patient and JEROME form explained re: Observation status for treatment of blood in urine. Explained hospitalization will be paid per? insurance policy for Outpatient billing?and condition will continue to be evaluated for Inpt necessity. Also let pt know that [facility] sends paper in the billing packet with their phone number if questions arise. Discussed Pharmacy section of JEROME form and self administered medication guideline.? Pt verbalizes understanding and does not have further questions. Form signed and placed in chart, copy to pt. KATIE LONDONO BSN CM
[2019-03-29] MEDS: Tamsulosin HCl 0.4 MG Capsule PO (21:09)
[2019-03-30 03:21] VITALS: BP 125/71; PULSE 61; RESP 12; TEMP 37.2; O2SAT 94
--- NOTE | 2019-03-30 05:15 | EKG12_ITS ---
Test Reason : RHYTHUM CHECK Blood Pressure : / mmHG Vent. Rate : 070 BPM Atrial Rate : 070 BPM P-R Int : 158 ms QRS Dur : 124 ms QT Int : 444 ms P-R-T Axes : 053 -34 054 degrees QTc Int : 479 ms Sinus rhythm with occasional Premature ventricular complexes and Premature atrial complexes Left axis deviation Non-specific intra-ventricular conduction delay Nonspecific T wave abnormality Abnormal ECG Confirmed by SUMANTH WILLOUGHBY, NASH ([id number]), editor dictionary SUSIE JIMENEZ ([id number]) on 04/03/2019 1:45:23 PM Referred By: Zac Vega Confirmed By:NASH JULIO MD
--- NOTE | 2019-03-30 05:16 | NURSING ---
EKG ordered d/t pt heart rate being irregular. No documented history of afib.
[2019-03-30] MEDS: Cefazolin 1 GM/50 ML BAG IV (05:58)
[2019-03-30 08:07] VITALS: BP 121/65; PULSE 67; RESP 12; TEMP 36.8; O2SAT 94
[2019-03-30 08:10] VITALS: PULSE 69
[2019-03-30] MEDS: Multivitamins,Therapeutic Tablet 1 TABLET PO (08:10)
[2019-03-30] MEDS: Metoprolol Tartrate 50 MG Tablet PO (08:10)
[2019-03-30] MEDS: amLODIPine 5 MG Tablet PO (08:10)
[2019-03-30] MEDS: Calcium Carb/Vitamin D 1 TABLET Tablet PO (08:11)
[2019-03-30] MEDS: Cyanocobalamin 500 MCG Tablet 1000 MCG PO (08:11)
[2019-03-30] MEDS: Lisinopril 20 MG Tablet PO (08:11)
--- NOTE | 2019-03-30 09:33 | PCM.DC.URO ---
Discharge Diet: Light diet - advance as tolerated Discharge Activity: Return to Normal Activity Allergies/Adverse Reactions: Allergies prednisone Adverse Reaction (Verified 03/28/19 04:19) ORAL THRUSH Medications to take at Discharge Amlodipine Besylate/Benazepril [Amlodipine-Benazepril 5-20 mg] 1 tab PO BID 11/02/14 Aspirin [Aspirin, Baby] 81 mg PO DAILY@0800 11/02/14 Metoprolol Tartrate 50 mg PO BID 11/02/14 Multivitamins,Therapeutic [Multivitamin] 1 tablet PO DAILY 11/02/14 Docusate Sodium [Colace] 100 mg PO BID PRN PRN #10 capsule 08/27/15 Biotin 10,000 mcg PO DAILY 03/03/19 Calcium Carbonate/Vitamin D3 [Calcium 500-Vit D3 600 Caplet] 1 each PO DAILY 03/03/19 Cyanocobalamin [Vitamin B12] 1,200 mcg SL DAILY@0800 03/03/19 [place]-3 Fatty Acids/Fish Oil [[place] 3 Fish Oil Softgel] 1 each PO DAILY 03/03/19 Pravastatin [Pravachol] 40 mg PO QHS 03/03/19 Saw [place] 320 mg PO DAILY 03/03/19 Tamsulosin HCl [Flomax] 0.4 mg PO QHS 03/03/19 Acetaminophen [Tylenol Extra Strength] 500 mg PO Q4H PRN PRN #20 tab 03/10/19 Ibuprofen 600 mg PO Q6H PRN PRN #20 tab 03/10/19 Primary Care Physician: Omkar Lawrence Chi, MD [Primary Care Provider] - Test Results: Test results from this visit will be discussed in further detail at your follow-up appointment, if applicable. Please Follow Up With: Zac Vega MD When: please call to make an appointment.
--- NOTE | 2019-03-30 09:46 | NURSING ---
pinzon bag changed to leg bag for dc
== END 2019-03-30 09:32 | disposition home or self-care (01) ==
LOC: ED 03:29 → PCU 03:36
PROVIDERS: Admitting Provider Urology; Emergency Provider Emergency Medicine; Family Provider Family Medicine Geriatric Medicine; PCP Family Medicine Geriatric Medicine; Referring Provider Urology; Visit Provider Urology
DX: N40.1 Benign prostatic hyperplasia with lower urinary tract symptoms (principal); R33.8 Other retention of urine; R35.0 Frequency of micturition; R35.1 Nocturia; Z98.890 Other specified postprocedural states; R31.0 Gross hematuria; R39.15 Urgency of urination; I10 Essential (primary) hypertension; Z79.899 Other long term (current) drug therapy; Z79.82 Long term (current) use of aspirin
CPT/HCPCS: 93005; 96365; 96366; 99218; 99282; J7030; A4216; G0378

== ENCOUNTER 2019-03-30 22:18 | Emergency (ER) | payer MEDICARE, SELFPAY ==
[2019-03-28 03:44] VITALS: BMI 30.9
[2019-03-30 22:18] VITALS: BP 170/96; PULSE 110; RESP 24; TEMP 36.8; O2SAT 97; BMI 30.8
--- NOTE | 2019-03-30 22:59 | ED.RN ---
ATTEMPTED TO MANUALLY IRRIGATE SMALL. SOME RETURN NOTED. NO CLOTS. UNABLE TO GET SMALL TO FLOW FREELY. ATTEMPTED TO DEFLATE THE SMALL BALLOON. ONLY 4ML RETURNED FROM BALLOON. SMALL REMOVED WITH NO DIFFICULTY.
--- NOTE | 2019-03-30 23:21 | ED.VISSUMM ---
- ER Visit Summary Date of Service: 03/30/19 Chief Complaint: Urinary retention History of Present Illness: The patient is a 79 M who presents with urinary retention that began tonight. Patient was discharged this morning and was doing better. Patient states that approximately 2 hours prior to arrival he felt some pressure in his lower abdomen and his Jaramillo catheter was not working. Patient denies any fevers or chills. Patient denies any dysuria but admits to some hematuria. Patient denies any back or flank pain. Physical Examination: Vital signs are stable. Patient is afebrile. Patient is in no acute distress. Oral mucosa is pink and moist. Neck is supple. Trachea is midline. There is no JVD noted. Heart was regular rate and rhythm. Lungs are clear and equal bilaterally. Abdomen is soft. Bowel sounds are normal. There is no tenderness. Cranial nerves II through XII are intact. There are no focal motor or sensory deficits noted. Emergency Department Course and Treatment: The Jaramillo catheter had become dislodged. The Jaramillo catheter was changed and is draining red urine. Patient feels better. Patient was instructed to continue his discharge instructions from Dr. Vega. Patient understood and was agreeable with the plan. All questions were answered. Disposition: Discharge home Impression: Urinary retention This note was generated with [employer] dictation software. It may contain incorrect words, spelling, and punctuation that were not noted in review of the chart prior to signing ED Disposition - Plan for ED Patient: Disposition: Home or Assisted Living Diagnosis: Urinary retention Instructions: Caring for Your Indwelling Urinary Catheter Referrals: Omkar Lawrence Chi, MD [Primary Care Provider] - 5-7 Days Zac Vega MD [STAFF PHYSICIAN] - Keep Julissa appointment
== END 2019-03-30 23:48 | disposition home or self-care (01) ==
LOC: ED 23:30
PROVIDERS: Emergency Provider Emergency Medicine; Family Provider Family Medicine Geriatric Medicine; PCP Family Medicine Geriatric Medicine
DX: T83.028A Displacement of other urinary catheter, initial encounter (principal); R33.9 Retention of urine, unspecified; I34.1 Nonrheumatic mitral (valve) prolapse; Z79.899 Other long term (current) drug therapy
CPT/HCPCS: 99282; A4216

== ENCOUNTER → 2019-04-07 11:39 | Outpatient (CLI) | payer MEDICARE, SELFPAY ==
[2019-03-30 22:18] VITALS: BMI 30.8
--- NOTE | 2019-04-07 11:43 | VDLE_ITS ---
Reason For Study: Localized edema RIGHT LEFT GSV is normal. CFV is compressible, spontaneous, phasic, CFV is compressible, spontaneous, phasic, competent, and demonstrates normal competent and demonstrates normal augmentation. augmentation. FV is compressible, spontaneous, phasic, FV is compressible, spontaneous, phasic, competent and demonstrates normal competent and demonstrates normal augmentation. augmentation. POP V is compressible, spontaneous, phasic, POP V is compressible, spontaneous, phasic, competent and demonstrates normal competent and demonstrates normal augmentation. augmentation. T/P Trunk is compressible. T/P Trunk is compressible. PTV is compressible. PTV is compressible. LT PerV is compressible. RT PerV is compressible. Acute deep vein thrombosis is noted in the Procedure left gastroc vein. Exam performed in department. Acute superficial thrombosis is noted in the A preliminary report was called and/or faxed left SSV and GSV. to [facility]. 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 Interpretation Summary Acute deep vein thrombosis is noted in the left gastrocnemius vein. The remainder of the left lower extremity deep venous system is patent and compressible. Deep veins of the right lower extremity are patent and compressible segmentally. There is no evidence of right lower extremity deep vein thrombosis. Valvular competence appears intact within the proximal deep venous systems bilaterally. The right greater saphenous vein appears patent and compressible segmentally. Acute superficial thrombophlebitis is noted in the left great saphenous vein and small saphenous vein, as well as in the superficial varicosities of the left medial calf. Ordering Physician: Omkar Lawrence Referring Physician: Omkar Lawrence Chi Performed By: Marychuy Paiz RVMony
== END ==
PROVIDERS: Family Provider Family Medicine Geriatric Medicine; PCP Family Medicine Geriatric Medicine; Visit Provider Family Medicine Geriatric Medicine
DX: R60.0 Localized edema (principal); N39.0 Urinary tract infection, site not specified
CPT/HCPCS: 87086; 87088; 93970

== ENCOUNTER → 2019-04-19 09:57 | Outpatient (CLI) | payer MEDICARE, SELFPAY ==
[2019-03-30 22:18] VITALS: BMI 30.8
--- NOTE | 2019-04-19 10:00 | VDLE_ITS ---
Reason For Study: Localized edema RIGHT LEFT CFV is compressible, spontaneous, phasic, CFV is compressible, spontaneous, phasic, competent and demonstrates normal competent, and demonstrates normal augmentation. augmentation. Procedure FV is compressible, spontaneous, phasic, Exam performed in department. competent and demonstrates normal A preliminary report was called and/or faxed augmentation. to [facility]. POP V is compressible, spontaneous, phasic, competent and demonstrates normal augmentation. T/P Trunk is compressible. PTV is compressible. LT PerV is compressible. Acute deep vein thrombosis is noted in the left Gastroc vein. GSV is now partially compressible. Acute superficial vein thrombosis is noted in the left SSV. Varicose veins in the medial calf are now compressible. Interpretation Summary Acute deep vein thrombosis is noted in the left gastrocnemius vein. The remainder of the left lower extremity deep venous system is patent and compressible. Valvular competence appears intact within the proximal deep venous system on the left . The left great saphenous vein is partially compressible, and superficial varicosities in the left medial calf are patent and compressible, demonstrating improvement in the acute superficial thrombophlebitis noted on a previous study on 04/07/2019. Acute superficial thrombophlebitis is noted in the left small saphenous vein. Ordering Physician: Omkar Lawrence Referring Physician: Omkar Lawrence Chi Performed By: Marychuy Paiz RVT
== END ==
PROVIDERS: Family Provider Family Medicine Geriatric Medicine; PCP Family Medicine Geriatric Medicine; Referring Provider Family Medicine Geriatric Medicine; Visit Provider Family Medicine Geriatric Medicine
DX: R60.0 Localized edema (principal)
CPT/HCPCS: 93971

== ENCOUNTER → 2019-05-26 12:48 | Outpatient (CLI) | payer MEDICARE, SELFPAY ==
--- NOTE | 2019-05-26 12:50 | VDLE_ITS ---
Reason For Study: previous DVT & SVT (LT gastrocs, SSV & GSV) RIGHT LEFT GSV is normal. GSV is normal. CFV is compressible, spontaneous, phasic, CFV is compressible, spontaneous, phasic, competent and demonstrates normal competent, and demonstrates normal augmentation. augmentation. FV is compressible, spontaneous, phasic, FV is compressible, spontaneous, phasic, competent and demonstrates normal competent and demonstrates normal augmentation. augmentation. POP V is compressible, spontaneous, phasic, POP V is compressible, spontaneous, phasic, competent and demonstrates normal competent and demonstrates normal augmentation. augmentation. T/P Trunk is compressible. T/P Trunk is compressible. PTV is compressible. PTV is compressible. RT PerV is compressible. LT PerV is compressible. Procedure Gastrocnemius V is now compressible. Exam performed in department. SSV is now compressible with thickened bear The exam was diagnostic. due to previous SVT. A preliminary report was called and/or faxed to Dr. Lawernce @ 1:30 pm @ [phone]. Interpretation Summary Deep veins of the lower extremities are bilaterally patent and compressible segmentally. There is no evidence of deep vein thrombosis on either side. Valvular competence appears intact within the proximal deep venous systems bilaterally. The great saphenous veins appear bilaterally patent and compressible segmentally. There appears to have been resolution of the acute deep vein thrombosis in the left gastrocnemius vein, noted in a prior study dated 04/19/2019. Acute superficial thrombophlebitis, noted in prior studies, has resolved in the left great saphenous vein and left small saphenous vein, though chronic vein wall thickening persists in the left small saphenous vein. Ordering Physician: Omkar Lawrence Referring Physician: Omkar Lawrence Chi Performed By: Idalia Underwood, HERRERA, RVT
== END ==
PROVIDERS: Family Provider Family Medicine Geriatric Medicine; PCP Family Medicine Geriatric Medicine; Referring Provider Family Medicine Geriatric Medicine; Visit Provider Family Medicine Geriatric Medicine
DX: R60.0 Localized edema (principal)
CPT/HCPCS: 93970

== ENCOUNTER → 2019-07-19 12:05 | Outpatient (CLI) | payer MEDICARE, SELFPAY ==
[2019-07-19 12:49] LABS: Absolute Lymphocyte Count 1.88 X10^3/uL (0.83-4.51); Absolute Neutrophil Count 2.6 X10^3/uL (2.0-7.7); Basophil# 0.05 X10^3/uL; Basophil% 0.9 % (0-1); Eosinophil# 0.26 X10^3/uL; Eosinophils% 4.9 % (0-5); Hematocrit 42.4 % (40-54); Hemoglobin 13.5 g/dL (13.0-16.5); Lymphocyte # 1.88 X10^3/ul (4.0); Lymphocyte % 35.6 % (19-41); Mean Corp Hgb Conc 31.8 g/dL (32-36); Mean Corpuscular Hgb 27.4 pg (27.0-32.0); Mean Platelet Vol. 10.2 fl (6.2-12.0); Monocyte% 9.5 % (0-10); NRBC Flagged by Analyzer 0 % (0-5); Neutrophil # 2.57 X10^3/uL (2.7-7.7); Neutrophil % 48.7 % (47-70); Platelet Count 220 K/mm3 (150-450); RBC Distribution Width CV 14.8 % (11.6-14.6); RBC Distribution Width SD 46.6 fl (35.1-43.9); Red Blood Count 4.93 M/mm3 (4.6-6.2); White Blood Count 5.3 K/mm3 (4.4-11.0)
[2019-07-19 13:08] LABS: AST(SGOT) 30 U/L (15-37); Alanine Aminotransfer ALT/SGPT 37 U/L (16-61); Albumin, Serum 3.7 g/dL (3.2-5.0); Alkaline Phosphatase 47 U/L (45-117); Anion Gap 3 (5-15); BUN 18 mg/dL (7-18); BUN/Creat Ratio 16.5 RATIO (10-20); Calcium,Total 9.6 mg/dL (8.5-10.1); Chloride 106 mmol/L (98-107); Creatinine, Serum 1.09 mg/dL (0.70-1.30); EST Glomerular Filtration Rate 70 mL/min (>60); Est Glom Filt Rate - Afr Amer 84 mL/min (>60); Globulin 3.8 g/dL (2.2-4.2); Glucose 100 mg/dL (74-106); Potassium 4.7 mmol/L (3.5-5.1); Protein, Total 7.5 g/dL (6.4-8.2); Sodium Level 140 mmol/L (136-145); Thyroid Stim Hormone (TSH) 1.51 uIU/mL (0.358-3.74)
[2019-07-19 13:09] LABS: Vitamin B12 1025 pg/mL (211-911); Vitamin D,25 Hydroxy 33.5 ng/mL (29.95-100.01)
== END ==
PROVIDERS: Family Provider Family Medicine Geriatric Medicine; PCP Family Medicine Geriatric Medicine; Visit Provider Family Medicine Geriatric Medicine
DX: I10 Essential (primary) hypertension (principal); E55.9 Vitamin D deficiency, unspecified
CPT/HCPCS: 36415; 80053; 82306; 82607; 84443; 85025

== ENCOUNTER → 2020-01-17 10:36 | Outpatient (CLI) | payer MEDICARE, SELFPAY ==
[2020-01-17 11:10] LABS: Absolute Lymphocyte Count 2.15 X10^3/uL (0.83-4.51); Absolute Neutrophil Count 4.1 X10^3/uL (2.0-7.7); Basophil# 0.05 X10^3/uL; Basophil% 0.7 % (0-1); Eosinophils% 1.4 % (0-5); Hemoglobin 14.1 g/dL (13.0-16.5); Lymphocyte # 2.15 X10^3/ul (4.0); Lymphocyte % 30.8 % (19-41); Mean Corpuscular Hgb 27.5 pg (27.0-32.0); Mean Corpuscular Volume 85.8 fL (80-94); Mean Platelet Vol. 9.1 fl (6.2-12.0); Monocyte# 0.57 X10^3/uL; Monocyte% 8.2 % (0-10); NRBC Flagged by Analyzer 0 % (0-5); Neutrophil # 4.08 X10^3/uL (2.7-7.7); Neutrophil % 58.6 % (47-70); Platelet Count 231 K/mm3 (150-450); RBC Distribution Width CV 15.6 % (11.6-14.6); RBC Distribution Width SD 48.9 fl (35.1-43.9); Red Blood Count 5.13 M/mm3 (4.6-6.2)
[2020-01-17 11:45] LABS: Vitamin D,25 Hydroxy 41.4 ng/mL
[2020-01-17 11:47] LABS: ALB/GLOB Ratio 0.9 RATIO (0.9-2.4); AST(SGOT) 35 U/L (15-37); Alanine Aminotransfer ALT/SGPT 48 U/L (16-61); Albumin, Serum 3.7 g/dL (3.2-5.0); Alkaline Phosphatase 50 U/L (45-117); Anion Gap 4 (5-15); BUN 18 mg/dL (7-18); BUN/Creat Ratio 18.4 RATIO (10-20); Chloride 108 mmol/L (98-107); Creatinine, Serum 0.98 mg/dL (0.70-1.30); EST Glomerular Filtration Rate 79 mL/min (>60); Est Glom Filt Rate - Afr Amer 95 mL/min (>60); Globulin 4.1 g/dL (2.2-4.2); Glucose 98 mg/dL (74-106); Potassium 3.5 mmol/L (3.5-5.1); Protein, Total 7.8 g/dL (6.4-8.2); Sodium Level 141 mmol/L (136-145); Thyroid Stim Hormone (TSH) 1.65 uIU/mL (0.358-3.74)
== END ==
PROVIDERS: PCP Family Medicine Geriatric Medicine; Referring Provider Family Medicine Geriatric Medicine; Visit Provider Family Medicine Geriatric Medicine
DX: E55.9 Vitamin D deficiency, unspecified (principal); I10 Essential (primary) hypertension
CPT/HCPCS: 36415; 80053; 82306; 84443; 85025

== ENCOUNTER → 2020-03-28 10:58 | Outpatient (CLI) | payer MEDICARE, SELFPAY ==
[2020-03-14 10:29] VITALS: BMI 33.0
[2020-03-28 12:10] LABS: Anion Gap 7 (5-15); BUN 32 mg/dL (7-18); BUN/Creat Ratio 28.3 RATIO (10-20); Calcium,Total 8.9 mg/dL (8.5-10.1); Chloride 105 mmol/L (98-107); Creatinine, Serum 1.13 mg/dL (0.70-1.30); EST Glomerular Filtration Rate 67 mL/min (>60); Est Glom Filt Rate - Afr Amer 81 mL/min (>60); Glucose 81 mg/dL (74-106); Potassium 3.1 mmol/L (3.5-5.1); Sodium Level 142 mmol/L (136-145)
== END ==
PROVIDERS: PCP Family Medicine Geriatric Medicine; Referring Provider Internal Medicine Cardiovascular Disease; Visit Provider Internal Medicine Cardiovascular Disease
DX: I49.3 Ventricular premature depolarization (principal); I35.0 Nonrheumatic aortic (valve) stenosis; I10 Essential (primary) hypertension; Q21.0 Ventricular septal defect; R53.83 Other fatigue
CPT/HCPCS: 36415; 80048

== ENCOUNTER → 2020-04-04 10:48 | Outpatient (CLI) | payer MEDICARE, SELFPAY ==
[2020-03-14 10:29] VITALS: BMI 33.0
--- NOTE | 2020-04-04 10:48 | ECHOD_ITS ---
Reason For Study: MURMUR Procedure This was a 2D Doppler, Color Flow transthoracic echocardiogram. The study was technically difficult. Exam performed in department. Left Ventricle Normal LV size. Left ventricular systolic function is normal. The estimated ejection fraction is 60 %. Diastolic function is indeterminate. No regional wall motion abnormalities noted. Right Ventricle Normal RV size. Normal systolic function. Atria The left atrium is mildly enlarged. Normal right atrium. No doppler evidence for ASD. Mitral Valve There is no mitral annular calcification. Equivocal mitral valve prolapse. Mild (1+) mitral valve insufficiency. Tricuspid Valve Normal tricuspid valve. Mild tricuspid valve insufficiency. Right ventricular systolic pressure estimated to be 33 mmHg. Aortic Valve Trisinus/trileaflet aortic valve. Mild focal aortic valve calcification. Mild aortic stenosis. Trivial aortic valve insufficiency. Pulmonic Valve The pulmonic valve is not well visualized. Mild (1+) pulmonic valve insufficiency. Great Vessels Mildly dilated aortic root. Pericardium/Pleural No pericardial effusion. MMode/2D Measurements & Calculations LVIDd: 5.8 cm IVSd: 0.98 cm LVOT diam: 2.1 cm LVIDs: 4.2 cm LVPWd: 1.1 cm LVOT area: 3.4 cm2 RVDd: 4.0 cm FS: 27.2 % Ao root diam: 4.1 cm LAV(MOD-bp): 71.7 ml LA A4 area: 24.2 cm2 LAV(MOD-bp) Indexed: 33.6 ml/m2 LAV(MOD-sp2): 73.1 ml LAV(MOD-sp4): 71.0 ml LA dimension(2D): 4.9 cm RA A4 area: 15.5 cm2 Time Measurements MV dec time: 0.22 sec Doppler Measurements & Calculations MV E max bakari: 64.2 cm/sec Lat Peak E' Bakari: 8.8 cm/sec Med Peak E' Bakari: 4.6 cm/sec MV A max bakari: 108.0 cm/sec E/E' lat: 7.3 E/E' med: 13.8 MV E/A: 0.59 Ao V2 max: 209.9 cm/sec LV V1 max: 75.5 cm/sec SV(LVOT): 62.6 ml Ao max P.6 mmHg LV V1 max P.3 mmHg Ao V2 mean: 150.4 cm/sec LV V1 mean P.2 mmHg Ao mean P.9 mmHg LV V1 mean: 51.2 cm/sec Ao V2 VTI: 45.6 cm LV V1 VTI: 18.2 cm MICHAEL(I,D): 1.4 cm2 MICHAEL(V,D): 1.2 cm2 TR max bakari: 274.0 cm/sec TR max P.0 mmHg Interpretation Summary The study was technically difficult. Left ventricular systolic function is normal. The estimated ejection fraction is 60 %. The left atrium is mildly enlarged. Equivocal mitral valve prolapse. Mild (1+) mitral valve insufficiency. Mild tricuspid valve insufficiency. Mild aortic stenosis. Trivial aortic valve insufficiency. Mild (1+) pulmonic valve insufficiency. Mildly dilated aortic root. Right ventricular systolic pressure estimated to be 33 mmHg. Diastolic function is indeterminate. 2D echocardiographic images and color flow doppler c/w a small perimembransous VSD with bidirectional flow. Ordering Physician: Theron Dickinson Referring Physician: ZHANG SUGGS Performed By: Rubi Baker, HERRERA, RVT
[2020-04-04 13:28] LABS: Anion Gap 7 (5-15); BUN 22 mg/dL (7-18); BUN/Creat Ratio 22.2 RATIO (10-20); Calcium,Total 9.4 mg/dL (8.5-10.1); Chloride 106 mmol/L (98-107); Creatinine, Serum 0.99 mg/dL (0.70-1.30); EST Glomerular Filtration Rate 78 mL/min (>60); Est Glom Filt Rate - Afr Amer 94 mL/min (>60); Glucose 109 mg/dL (74-106); Potassium 3.7 mmol/L (3.5-5.1); Sodium Level 140 mmol/L (136-145)
== END ==
PROVIDERS: PCP Family Medicine Geriatric Medicine; Referring Provider Internal Medicine Cardiovascular Disease; Visit Provider Internal Medicine Cardiovascular Disease
DX: I49.3 Ventricular premature depolarization (principal); I10 Essential (primary) hypertension; I35.0 Nonrheumatic aortic (valve) stenosis; Q21.0 Ventricular septal defect; R53.83 Other fatigue; E87.6 Hypokalemia
CPT/HCPCS: 36415; 80048; 93306

== ENCOUNTER → 2020-04-10 16:55 | Outpatient (CLI) | payer MEDICARE, SELFPAY ==
[2020-03-14 10:29] VITALS: BMI 33.0
--- NOTE | 2020-04-10 16:56 | CT_ITS ---
STUDY: CTA CHEST REASON FOR EXAM: Male, 80 years old. Dilated aortic root. RADIATION DOSAGE (If Supplied By Facility): CTDIvol = ( 17.37 ) mGy, DLP = ( 495.31 ) mGycm TECHNIQUE: The examination was performed with the intravenous administration of IV 100mL Isovue-370. Post-processing of the angiographic images was performed, with multiplanar reformation and 3D reconstruction. Individualized dose optimization techniques were used for this CT. COMPARISON: CT of the abdomen and pelvis, February 12, 2015. FINDINGS: Normal enhancement of the main pulmonary artery and right and left pulmonary arteries. Normal enhancement of the bilateral peripheral pulmonary arteries. There is no demonstrated pulmonary embolism. Mild tortuosity of the thoracic aorta with minimal atherosclerotic change. There is no aneurysm. There is no demonstrated aortic dissection. Normal heart and pericardium. Calcifications at the root of the aorta. Coronary artery calcifications. Normal mediastinum. Normal hilar regions. Normal visualized trachea and bronchi. The lungs are well expanded. Normal pulmonary parenchyma. Normal pleura. Normal chest wall structures. There are degenerative changes of thoracic spine. There are multiple cysts seen in the liver. These are unchanged from the CT of the abdomen and pelvis dated February 12, 2015. Remainder the abdomen appears grossly normal. CT/CTA Chest W/WO Contrast IMPRESSION: 1. Mild atherosclerotic tortuosity of the thoracic aorta without aneurysm or dissection. 2. No evidence of pulmonary embolus. 3. No acute pulmonary disease. 4. Multiple stable hepatic cysts. Electronically Signed: Raphael Donato DO at 19:12 EDT Tel [phone], Service support ,
== END ==
PROVIDERS: PCP Family Medicine Geriatric Medicine; Referring Provider Physician Assistant Medical; Visit Provider Physician Assistant Medical
DX: I77.810 Thoracic aortic ectasia (principal)
CPT/HCPCS: 71275; Q9967

== ENCOUNTER → 2020-07-24 09:11 | Outpatient (CLI) | payer MEDICARE, SELFPAY ==
[2020-03-14 10:29] VITALS: BMI 33.0
[2020-07-24 12:33] LABS: Absolute Lymphocyte Count 1.91 X10^3/uL (0.83-4.51); Basophil# 0.05 X10^3/uL; Basophil% 0.9 % (0-1); Eosinophil# 0.24 X10^3/uL; Eosinophils% 4.1 % (0-5); Hemoglobin 13.2 g/dL (13.0-16.5); Lymphocyte # 1.91 X10^3/ul (4.0); Lymphocyte % 32.9 % (19-41); Mean Corp Hgb Conc 31.4 g/dL (32-36); Mean Corpuscular Volume 89.2 fL (80-94); Mean Platelet Vol. 9.7 fl (6.2-12.0); Monocyte% 10.3 % (0-10); NRBC Flagged by Analyzer 0 % (0-5); Neutrophil # 2.99 X10^3/uL (2.7-7.7); Neutrophil % 51.6 % (47-70); Platelet Count 249 K/mm3 (150-450); RBC Distribution Width CV 14.8 % (11.6-14.6); RBC Distribution Width SD 48.4 fl (35.1-43.9); Red Blood Count 4.71 M/mm3 (4.6-6.2); White Blood Count 5.8 K/mm3 (4.4-11.0)
[2020-07-24 12:45] LABS: Vitamin D,25 Hydroxy 42.3 ng/mL
[2020-07-24 13:07] LABS: ALB/GLOB Ratio 0.9 RATIO (0.9-2.4); AST(SGOT) 63 U/L (15-37); Alanine Aminotransfer ALT/SGPT 51 U/L (16-61); Albumin, Serum 3.6 g/dL (3.2-5.0); Alkaline Phosphatase 42 U/L (45-117); Anion Gap 5 (5-15); BUN 28 mg/dL (7-18); BUN/Creat Ratio 25.2 RATIO (10-20); Calcium,Total 9.4 mg/dL (8.5-10.1); Chloride 109 mmol/L (98-107); Creatinine, Serum 1.11 mg/dL (0.70-1.30); EST Glomerular Filtration Rate 68 mL/min (>60); Est Glom Filt Rate - Afr Amer 82 mL/min (>60); Glucose 103 mg/dL (74-106); Potassium 3.5 mmol/L (3.5-5.1); Protein, Total 7.6 g/dL (6.4-8.2); Sodium Level 143 mmol/L (136-145); Thyroid Stim Hormone (TSH) 1.82 uIU/mL (0.358-3.74)
== END ==
PROVIDERS: PCP Family Medicine Geriatric Medicine; Visit Provider Family Medicine Geriatric Medicine
DX: E55.9 Vitamin D deficiency, unspecified (principal); I10 Essential (primary) hypertension
CPT/HCPCS: 36415; 80053; 82306; 84443; 85025

== ENCOUNTER 2020-11-13 13:36 | Outpatient (RCR) | payer MEDICARE, SELFPAY ==
[2020-09-16 11:14] VITALS: BMI 32.1
== END 2020-11-13 23:59 ==
LOC: IMMUN 13:36
PROVIDERS: PCP Family Medicine Geriatric Medicine; Referring Provider Family Medicine; Visit Provider Family Medicine
DX: Z23 Encounter for immunization (principal)
CPT/HCPCS: 0011A; 0012A; 91301

== ENCOUNTER → 2021-01-21 11:02 | Outpatient (CLI) | payer MEDICARE, SELFPAY ==
[2020-09-16 11:14] VITALS: BMI 32.1
[2021-01-21 12:31] LABS: Absolute Lymphocyte Count 1.96 X10^3/uL (0.83-4.51); Absolute Neutrophil Count 2.8 X10^3/uL (2.0-7.7); Basophil# 0.04 X10^3/uL; Basophil% 0.7 % (0-1); Eosinophil# 0.16 X10^3/uL; Eosinophils% 2.9 % (0-5); Hematocrit 43.4 % (40-54); Hemoglobin 13.6 g/dL (13.0-16.5); Lymphocyte # 1.96 X10^3/ul (0.83-4.51); Lymphocyte % 35.7 % (19-41); Mean Corp Hgb Conc 31.3 g/dL (32-36); Mean Corpuscular Hgb 27.4 pg (27.0-32.0); Mean Corpuscular Volume 87.3 fL (80-94); Mean Platelet Vol. 9.5 fl (6.2-12.0); Monocyte# 0.51 X10^3/uL; Monocyte% 9.3 % (0-10); NRBC Flagged by Analyzer 0 % (0-5); Neutrophil # 2.81 X10^3/uL (2.7-7.7); Neutrophil % 51.2 % (47-70); Platelet Count 249 K/mm3 (150-450); RBC Distribution Width CV 14.9 % (11.6-14.6); RBC Distribution Width SD 47.8 fl (35.1-43.9); Red Blood Count 4.97 M/mm3 (4.6-6.2); White Blood Count 5.5 K/mm3 (4.4-11.0)
[2021-01-21 12:45] LABS: Vitamin D,25 Hydroxy 40.7 ng/mL
[2021-01-21 12:50] LABS: ALB/GLOB Ratio 0.9 RATIO (0.9-2.4); AST(SGOT) 42 U/L (15-37); Alanine Aminotransfer ALT/SGPT 50 U/L (16-61); Albumin, Serum 3.7 g/dL (3.2-5.0); Alkaline Phosphatase 43 U/L (45-117); Anion Gap 5 (5-15); BUN 24 mg/dL (7-18); BUN/Creat Ratio 21.4 RATIO (10-20); Calcium,Total 10.1 mg/dL (8.5-10.1); Chloride 103 mmol/L (98-107); Creatinine, Serum 1.12 mg/dL (0.70-1.30); EST Glomerular Filtration Rate 67 mL/min (>60); Est Glom Filt Rate - Afr Amer 81 mL/min (>60); Globulin 3.9 g/dL (2.2-4.2); Glucose 102 mg/dL (74-106); Potassium 3.8 mmol/L (3.5-5.1); Protein, Total 7.6 g/dL (6.4-8.2); Sodium Level 140 mmol/L (136-145); Thyroid Stim Hormone (TSH) 1.56 uIU/mL (0.358-3.74)
== END ==
PROVIDERS: PCP Family Medicine Geriatric Medicine; Visit Provider Family Medicine Geriatric Medicine
DX: I10 Essential (primary) hypertension (principal); E55.9 Vitamin D deficiency, unspecified
CPT/HCPCS: 36415; 80053; 82306; 84443; 85025

== ENCOUNTER → 2021-07-29 10:56 | Outpatient (CLI) | payer MEDICARE, SELFPAY ==
[2021-07-29 12:16] LABS: Absolute Neutrophil Count 3.2 X10^3/uL (2.0-7.7); Basophil# 0.05 X10^3/uL; Basophil% 0.8 % (0-1); Eosinophil# 0.36 X10^3/uL; Hematocrit 41.8 % (40-54); Hemoglobin 13.7 g/dL (13.0-16.5); Lymphocyte % 30.2 % (19-41); Mean Corp Hgb Conc 32.8 g/dL (32-36); Mean Corpuscular Hgb 28.2 pg (27.0-32.0); Monocyte# 0.52 X10^3/uL; Monocyte% 8.7 % (0-10); NRBC Flagged by Analyzer 0 % (0-5); Neutrophil # 3.21 X10^3/uL (2.7-7.7); Platelet Count 254 K/mm3 (150-450); RBC Distribution Width CV 14.6 % (11.6-14.6); Red Blood Count 4.86 M/mm3 (4.6-6.2)
[2021-07-29 12:30] LABS: Vitamin D,25 Hydroxy 53.4 ng/mL
[2021-07-29 12:41] LABS: ALB/GLOB Ratio 0.8 RATIO (0.9-2.4); AST(SGOT) 39 U/L (15-37); Alanine Aminotransfer ALT/SGPT 54 U/L (16-61); Albumin, Serum 3.4 g/dL (3.2-5.0); Alkaline Phosphatase 41 U/L (45-117); Anion Gap 9 (5-15); BUN 23 mg/dL (7-18); BUN/Creat Ratio 21.5 RATIO (10-20); Calcium,Total 9.4 mg/dL (8.5-10.1); Chloride 102 mmol/L (98-107); Creatinine, Serum 1.07 mg/dL (0.70-1.30); EST Glomerular Filtration Rate 71 mL/min (>60); Est Glom Filt Rate - Afr Amer 86 mL/min (>60); Globulin 4.2 g/dL (2.2-4.2); Glucose 113 mg/dL (74-106); Potassium 3.7 mmol/L (3.5-5.1); Protein, Total 7.6 g/dL (6.4-8.2); Sodium Level 139 mmol/L (136-145); Thyroid Stim Hormone (TSH) 1.38 uIU/mL (0.358-3.74)
== END ==
PROVIDERS: PCP Family Medicine Geriatric Medicine; Visit Provider Family Medicine Geriatric Medicine
DX: I10 Essential (primary) hypertension (principal); E55.9 Vitamin D deficiency, unspecified
CPT/HCPCS: 36415; 80053; 82306; 84443; 85025

== ENCOUNTER → 2021-08-08 10:29 | Outpatient (CLI) | payer MEDICARE, SELFPAY | PROVIDERS: PCP Family Medicine Geriatric Medicine; Referring Provider Family Medicine Geriatric Medicine; Visit Provider Family Medicine Geriatric Medicine | DX: R68.83 Chills (without fever) (principal) | CPT/HCPCS: 87635; 87804; 87807; C9803; U0005; U0003 ==

== ENCOUNTER → 2022-01-27 | Outpatient (CLI) | payer MEDICARE, SELFPAY ==
[2022-01-27 12:23] LABS: Absolute Lymphocyte Count 2.07 X10^3/uL (0.83-4.51); Absolute Neutrophil Count 2.7 X10^3/uL (2.0-7.7); Basophil# 0.04 X10^3/uL; Basophil% 0.7 % (0-1); Eosinophil# 0.16 X10^3/uL; Eosinophils% 2.9 % (0-5); Hemoglobin 13.4 g/dL (13.0-16.5); Lymphocyte # 2.07 X10^3/ul (0.83-4.51); Lymphocyte % 37.1 % (19-41); Mean Corp Hgb Conc 32.7 g/dL (32-36); Mean Corpuscular Hgb 28.2 pg (27.0-32.0); Mean Corpuscular Volume 86.3 fL (80-94); Mean Platelet Vol. 9.7 fl (6.2-12.0); Monocyte# 0.56 X10^3/uL; NRBC Flagged by Analyzer 0 % (0-5); Neutrophil # 2.74 X10^3/uL (2.7-7.7); Neutrophil % 49.1 % (47-70); Platelet Count 239 K/mm3 (150-450); RBC Distribution Width CV 14.6 % (11.6-14.6); RBC Distribution Width SD 46.4 fl (35.1-43.9); Red Blood Count 4.75 M/mm3 (4.6-6.2); White Blood Count 5.6 K/mm3 (4.4-11.0)
[2022-01-27 12:48] LABS: Vitamin D,25 Hydroxy 52.5 ng/mL
[2022-01-27 13:03] LABS: ALB/GLOB Ratio 0.9 RATIO (0.9-2.4); AST(SGOT) 45 U/L (15-37); Alanine Aminotransfer ALT/SGPT 50 U/L (16-61); Albumin, Serum 3.5 g/dL (3.2-5.0); Alkaline Phosphatase 37 U/L (45-117); Anion Gap 7 (5-15); BUN 26 mg/dL (7-18); BUN/Creat Ratio 24.3 RATIO (10-20); Calcium,Total 9.4 mg/dL (8.5-10.1); Chloride 104 mmol/L (98-107); Creatinine, Serum 1.07 mg/dL (0.70-1.30); EST Glomerular Filtration Rate 71 mL/min (>60); Est Glom Filt Rate - Afr Amer 86 mL/min (>60); Globulin 3.7 g/dL (2.2-4.2); Glucose 105 mg/dL (74-106); Potassium 3.5 mmol/L (3.5-5.1); Protein, Total 7.2 g/dL (6.4-8.2); Sodium Level 140 mmol/L (136-145); Thyroid Stim Hormone (TSH) 1.54 uIU/mL (0.358-3.74)
== END | disposition home or self-care (01) ==
LOC: POLAB3 11:29
PROVIDERS: PCP Family Medicine Geriatric Medicine; Visit Provider Family Medicine Geriatric Medicine
DX: E55.9 Vitamin D deficiency, unspecified (principal); I10 Essential (primary) hypertension
CPT/HCPCS: 36415; 80053; 82306; 84443; 85025

== ENCOUNTER → 2022-02-02 | Outpatient (CLI) | payer MEDICARE, SELFPAY ==
[2022-02-02 13:13] LABS: Hepatitis B Surface Antibody Reactive; Hepatitis C Antibody Non-Reactive (Nonreactive)
== END | disposition home or self-care (01) ==
LOC: POLAB3 11:05
PROVIDERS: PCP Family Medicine Geriatric Medicine; Visit Provider Family Medicine Geriatric Medicine
DX: R74.8 Abnormal levels of other serum enzymes (principal)
CPT/HCPCS: 36415; 86706; 86708; 86803

== ENCOUNTER → 2022-02-04 | Outpatient (CLI) | payer MEDICARE, SELFPAY ==
--- NOTE | 2022-02-04 08:12 | US_ITS ---
STUDY: ABDOMINAL ULTRASOUND - RIGHT UPPER QUADRANT REASON FOR VISIT: Male, 81 years old LIVER ENZYMES ABNORMAL TECHNIQUE: Ultrasound evaluation of the right upper quadrant was performed with real-time and static reza-scale imaging. TECHNICAL QUALITY: Adequate. COMPARISON: Comparison is made with prior study dated 03/26/2015. FINDINGS: Liver: The liver is mildly enlarged and measures 17.4 cm. There is a heterogeneous echogenicity of the liver. The bile ducts are within normal limits. There is hepatic color flow. The direction of portal flow is hepatopetal. Multiple cysts are seen. The largest cyst in the right lobe measures 2.6 x 2.6 x 2.1 cm. The largest cyst in the left lobe measures 5.1cm x 5.3 cm x 5.1 cm. Gallbladder: Normal distended gallbladder. The gallbladder wall measures 3 mm. There is a negative sonographic Melissa''s sign. There is no pericholecystic fluid. Findings suggesting multiple tiny gallstones. Common Bile Duct (C.B.D.): The common bile duct measures 7 mm. Pancreas: Normal size of the head, body and tail of the pancreas. There is normal echogenicity of the pancreas. There is no demonstrated pancreatic mass or cyst. Right Kidney: Normal size of the right kidney. The right kidney measures 11.3 cm x 6.6 x 5.2 cm. Normal renal cortex. The right cortex measures 1.8 cm. There is no demonstrated renal mass or cyst. There is no right hydronephrosis. US/Abdomen Limited IMPRESSION: Multiple hepatic cysts. Findings suggestive of multiple tiny gallstones along the dependent portion of the gallbladder lumen. Electronically Signed: Cristiano Allen MD at 13:57 EDT ,
== END | disposition home or self-care (01) ==
LOC: US 08:01
PROVIDERS: PCP Family Medicine Geriatric Medicine; Referring Provider Family Medicine Geriatric Medicine; Visit Provider Family Medicine Geriatric Medicine
DX: R74.8 Abnormal levels of other serum enzymes (principal)
CPT/HCPCS: 76705

== ENCOUNTER → 2022-07-27 | Outpatient (CLI) | payer MEDICARE, SELFPAY | END | disposition home or self-care (01) | PROVIDERS: PCP Family Medicine Geriatric Medicine; Referring Provider Family Medicine Geriatric Medicine; Visit Provider Family Medicine Geriatric Medicine | DX: R68.83 Chills (without fever) (principal) | CPT/HCPCS: 87635; 87804; 87807; C9803; U0003; U0005 ==

== ENCOUNTER → 2022-08-03 | Outpatient (CLI) | payer MEDICARE, SELFPAY ==
[2022-08-03 12:28] LABS: Absolute Lymphocyte Count 2.53 X10^3/uL (0.83-4.51); Absolute Neutrophil Count 4.9 X10^3/uL (2.0-7.7); Basophil# 0.06 X10^3/uL; Basophil% 0.7 % (0-1); Eosinophil# 0.28 X10^3/uL; Eosinophils% 3.3 % (0-5); Hematocrit 40.6 % (40-54); Hemoglobin 13.2 g/dL (13.0-16.5); Lymphocyte # 2.53 X10^3/ul (0.83-4.51); Lymphocyte % 29.9 % (19-41); Mean Corp Hgb Conc 32.5 g/dL (32-36); Mean Corpuscular Hgb 27.8 pg (27.0-32.0); Mean Corpuscular Volume 85.5 fL (80-94); Mean Platelet Vol. 9.5 fl (6.2-12.0); Monocyte# 0.58 X10^3/uL; Monocyte% 6.9 % (0-10); NRBC Flagged by Analyzer 0 % (0-5); Neutrophil # 4.92 X10^3/uL (2.7-7.7); Neutrophil % 58.1 % (47-70); Platelet Count 286 K/mm3 (150-450); RBC Distribution Width CV 15.2 % (11.6-14.6); RBC Distribution Width SD 47.1 fl (35.1-43.9); Red Blood Count 4.75 M/mm3 (4.6-6.2); White Blood Count 8.5 K/mm3 (4.4-11.0)
[2022-08-03 13:06] LABS: ALB/GLOB Ratio 0.8 RATIO (0.9-2.4); AST(SGOT) 29 U/L (15-37); Alanine Aminotransfer ALT/SGPT 54 U/L (16-61); Albumin, Serum 3.2 g/dL (3.2-5.0); Alkaline Phosphatase 36 U/L (45-117); Anion Gap 2 (5-15); BUN 18 mg/dL (7-18); BUN/Creat Ratio 18.7 RATIO (10-20); Calcium,Total 9.3 mg/dL (8.5-10.1); Chloride 104 mmol/L (98-107); Creatinine, Serum 0.96 mg/dL (0.70-1.30); EST Glomerular Filtration Rate 80 mL/min (>60); Est Glom Filt Rate - Afr Amer 96 mL/min (>60); Globulin 4.1 g/dL (2.2-4.2); Glucose 102 mg/dL (74-106); Potassium 3.7 mmol/L (3.5-5.1); Protein, Total 7.3 g/dL (6.4-8.2); Sodium Level 138 mmol/L (136-145); Thyroid Stim Hormone (TSH) 1.17 uIU/mL (0.358-3.74)
== END | disposition home or self-care (01) ==
LOC: POLAB3 10:09
PROVIDERS: PCP Family Medicine Geriatric Medicine; Visit Provider Family Medicine Geriatric Medicine
DX: I10 Essential (primary) hypertension (principal)
CPT/HCPCS: 36415; 80053; 82306; 84443; 85025

== ENCOUNTER → 2022-08-11 | Outpatient (CLI) | payer MEDICARE, SELFPAY | END | disposition home or self-care (01) | LOC: PSN 10:12 | PROVIDERS: PCP Family Medicine Geriatric Medicine; Visit Provider Family Medicine Geriatric Medicine | DX: U07.1 COVID-19 (principal); R68.83 Chills (without fever) | CPT/HCPCS: 87635; 87804; 87807; U0003; U0005 ==

== ENCOUNTER → 2022-10-21 | Outpatient (CLI) | payer MEDICARE, SELFPAY | END | disposition home or self-care (01) | LOC: PSN 13:54 | PROVIDERS: PCP Family Medicine Geriatric Medicine; Visit Provider Internal Medicine Cardiovascular Disease | DX: I49.3 Ventricular premature depolarization (principal); Q21.0 Ventricular septal defect; I35.0 Nonrheumatic aortic (valve) stenosis; I10 Essential (primary) hypertension | CPT/HCPCS: 93225; 93226 ==

== ENCOUNTER 2022-12-19 16:05 | Emergency (ER) | payer MEDICARE, SELFPAY ==
[2022-12-19 16:06] VITALS: BP 211/112; PULSE 96; RESP 16; TEMP 36.2; O2SAT 94; BMI 34.0
--- NOTE | 2022-12-19 16:18 | EX.ED.VISEXT ---
HPI History of Present Illness Chief Complaint: Bite Narrative Narrative: 82-year-old male presenting with dog bite to the left hand. His own dog is a terrier mix. He is not in severe pain. He has 3 lacerations on the left hand and the dorsal surface. 2 of them are on the lateral aspect and one is on the medial. There is some slight bleeding from these. Patient denies numbness or tingling. His dog is had all his shots. Patient reports that he is right-hand dominant and is not up-to-date on his tetanus. ROS ROS ED Constitutional Constitutional ED: Denies chills or fever(s) Eyes Eyes: Denies change in vision or diplopia ENT ENT ED: Denies rhinorrhea or sore throat Cardiovascular Cardiovascular: Denies chest pain Respiratory/Chest Respiratory/Chest: Denies cough Gastrointestinal Gastrointestinal: Denies abdominal pain Genitourinary Genitourinary ED: Denies dysuria Musculoskeletal Musculoskeletal: Denies arthralgias or back pain Integumentary Reports other [facility] Medical History BPH (benign prostatic hyperplasia) Essential hypertension GERD (gastroesophageal reflux disease) Nonrheumatic aortic (valve) stenosis Premature ventricular contraction VSD (ventricular septal defect) Home Medications multivitamin with folic acid 400 mcg tablet 1 tab PO DAILY vitamin 11/02/14 [History Last Taken Unknown] amlodipine 10 mg tablet 10 mg PO DAILY 03/14/20 [History Last Taken Unknown] cholecalciferol (vitamin D3) 50 mcg (2,000 unit) capsule 50 mcg PO DAILY 03/14/20 [History Last Taken Unknown] glucosamine 375 xt-bvlfnrikp-dlz no1 500 mg-C 15 mg-emily 0.5 mg tablet (Swsoukkwuxk-Deiedpimnso-ORI Complex) 2 tab PO DAILY 03/14/20 [History Last Taken Unknown] glucosamine-chondroitin 250 mg-200 mg tablet (Osteo Bi-Flex) 2 tab PO DAILY 03/14/20 [History Last Taken Unknown] metoprolol tartrate 25 mg tablet 25 mg PO BID 03/14/20 [History Last Taken Unknown] valsartan 320 mg tablet 320 mg PO DAILY 03/14/20 [History Last Taken Unknown] biotin 10,000 mcg capsule 5,000 mcg PO DAILY SUPPLEMENT 02/27/22 [History Last Taken Unknown] potassium chloride 20 mEq tablet,extended release 20 meq PO BID #180 tabs 07/28/22 [Rx Last Taken Unknown] hydrochlorothiazide 25 mg tablet 25 mg PO DAILY #90 tabs 11/12/22 [Rx Last Taken Unknown] amoxicillin 875 mg-potassium clavulanate 125 mg tablet 1 tab PO BID #19 tabs 12/19/22 [Rx Last Taken Unknown] Allergy/AdvReac Type Severity Reaction Status Date / Time prednisone AdvReac ORAL THRUSH Verified 10/09/22 14:16 Family History Father CAD (coronary artery disease) Hypertension Mother CVA (cerebral vascular accident) Surgical History History of bilateral cataract extraction History of left heart catheterization (LHC) (~02/28/02) History of rotator cuff surgery History of tonsillectomy and adenoidectomy History of transurethral resection of prostate S/P TURP (status post transurethral resection of prostate) Social History Smoking Status: Former smoker alcohol intake: never substance use type: does not use caffeine: Yes Type: coffee Number of servings: 4 EXAM Physical Exam Const Vital Signs: 12/19/22 16:06 12/19/22 16:53 12/19/22 16:53 Temperature 97.2 F L 98 F Temperature Source Temporal Temporal Pulse Rate 96 Respiratory Rate 16 15 Blood Pressure 211/112 H 132/84 H Blood Pressure Mean 145 100 Pulse Ox 94 99 98 Oxygen Delivery Method Room Air Room Air Room Air Positive well nourished General Appearance ED: NAD HEENT normocephalic and atraumatic Resp normal respiratory effort Cardio regular rate and regular rhythm Extremity Extremity Narrative: 3 cm linear superficial laceration to the dorsum of the lateral hand with an adjacent 1 cm superficial laceration. There is another 1 cm laceration on the medial aspect of the left hand dorsally. There is slight bleeding at all 3 sites. No bony exposure or tendon exposure. No foreign bodies. Left hand neurovascular intact brisk cap refill to all fingers MDM MDM MDM Narrative Medical decision making narrative: Patient's tetanus was updated. I do not believe needs any imaging. I explained to the patient that she should do not usually get sutured and not gaping. These will need to heal by secondary intention. He is knowledge understanding of this. His wound was soaked and cleaned thoroughly. Bacitracin and a dressing were placed. Patient counseled on wound care and monitoring for signs of worsening infection. He started on Augmentin with the first dose in the ER. Return precautions were discussed. Impression: 1. Dog bite left hand Discharge Plan Triage Chief Complaint: Bite ED Provider: Prashanth Ansari Dx/Rx/DC Orders Instructions: ED Dog Bite Prescriptions: New amoxicillin-pot clavulanate 875-125 mg tablet 1 tab PO BID Qty: 19 0RF No Action metoprolol tartrate 25 mg tablet 25 mg PO BID amlodipine 10 mg tablet 10 mg PO DAILY valsartan 320 mg tablet 320 mg PO DAILY glucosamine-chondroitin 250 mg-200 mg tablet 250-200 mg tablet 2 tab PO DAILY cholecalciferol (vitamin D3) 50 mcg (2,000 unit) capsule 50 mcg PO DAILY glucosamine 375 pf-licvvhbef-cwh no1 500 mg-C 15 mg-emily 0.5 mg tablet 686-030-37-0.5 mg tablet 2 tab PO DAILY multivitamin with folic acid 1 TABLET tablet 1 tab PO DAILY biotin 10,000 mcg capsule 5,000 mcg PO DAILY potassium chloride 20 mEq tablet extended release 20 meq PO BID Qty: 180 4RF hydrochlorothiazide 25 mg tablet 25 mg PO DAILY Qty: 90 4RF Primary Care Provider: Omkar Lawrence Chi Referrals: Omkar Lawrence Chi, MD [Primary Care Provider] - Disposition Disposition: Home, Self Care Discharge Date/Time: 12/19/22 17:56
[2022-12-19 16:53] VITALS: BP 132/84; RESP 15; TEMP 36.6; O2SAT 98; O2SAT 99; BMI 34.2
[2022-12-19] MEDS: Amox/Clavulanate 875 MG Tablet PO (17:01)
--- NOTE | 2022-12-19 17:15 | ED.RN ---
Rickie on pharmacy to send doen tdap, still
[2022-12-19] MEDS: Diphth,Pertuss(Acell),Tet Vac 0.5 ML Vial IM (17:45)
== END 2022-12-19 17:56 | disposition home or self-care (01) ==
PROVIDERS: Emergency Provider Student in an Organized Health Care Education/Training Program; PCP Family Medicine Geriatric Medicine; Visit Provider Student in an Organized Health Care Education/Training Program
DX: S61.412A Laceration without foreign body of left hand, initial encounter (principal); W54.0XXA Bitten by dog, initial encounter; Z23 Encounter for immunization; I10 Essential (primary) hypertension; Z79.899 Other long term (current) drug therapy; Z87.891 Personal history of nicotine dependence
CPT/HCPCS: 90715; 99283

== ENCOUNTER 2023-01-12 12:50 | Emergency (ER) | payer MEDICARE, SELFPAY ==
[2023-01-12] VITALS (7 sets, daily range): BP systolic 131–141; BP diastolic 79–92; PULSE 62–89; RESP 17–20; TEMP 36.9–37.2; O2SAT 89–98; BMI 33.3
--- NOTE | 2023-01-12 15:30 | EKG12_ITS ---
Test Reason : SOB Blood Pressure : / mmHG Vent. Rate : 087 BPM Atrial Rate : 087 BPM P-R Int : 150 ms QRS Dur : 110 ms QT Int : 404 ms P-R-T Axes : 033 -44 048 degrees QTc Int : 486 ms Sinus rhythm with Premature supraventricular complexes Left axis deviation Abnormal ECG Confirmed by MARYANA WILLOUGHBY, CECILIA ([id number]), editor managing director SUSIE JIMENEZ ([id number]) on 01/18/2023 9:48:50 AM Referred By: Confirmed By:CECILIA MIJARES MD
--- NOTE | 2023-01-12 15:31 | EDS_ITS ---
HPI History of Present Illness Chief Complaint: General Illness Informant: patient Narrative Narrative: Patient presents with some generalized weakness along with nausea vomiting. He states about a week ago he started to get sick. It was really a cough and congestion. He saw his primary physician on Wednesday. He was started on an inhaler, Augmentin, cough syrup with codeine, and prednisone/Medrol Dosepak. He states he has been coughing up a lot of phlegm. Last night he got a lot of phlegm out and that part seems to be improved. But he is also got some nausea and vomiting. He vomited today. His appetite has been down for couple days. But he also states they just put their dog down and his appetite is down because of that. He has never vomited blood. He states his abdomen is just a little sore from coughing but does not hurt in any 1 spot. No diarrhea. He feels okay now. Earlier today at home he just had a sense of generalized weakness. He is not having chest pain or palpitations. [facility] Medical History BPH (benign prostatic hyperplasia) Essential hypertension GERD (gastroesophageal reflux disease) Nonrheumatic aortic (valve) stenosis Premature ventricular contraction VSD (ventricular septal defect) Home Medications multivitamin with folic acid 400 mcg tablet 1 tab PO DAILY vitamin 11/02/14 [History Last Taken Unknown] amlodipine 10 mg tablet 10 mg PO DAILY 03/14/20 [History Last Taken Unknown] cholecalciferol (vitamin D3) 50 mcg (2,000 unit) capsule 50 mcg PO DAILY 03/14/20 [History Last Taken Unknown] glucosamine 375 zm-[id number]-ebi no1 500 mg-C 15 mg-emily 0.5 mg tablet (Hymdegdqzav-Krtriihlgee-ETW Complex) 2 tab PO DAILY 03/14/20 [History Last Taken Unknown] glucosamine-chondroitin 250 mg-200 mg tablet (Osteo Bi-Flex) 2 tab PO DAILY 03/14/20 [History Last Taken Unknown] metoprolol tartrate 25 mg tablet 25 mg PO BID 03/14/20 [History Last Taken Unknown] valsartan 320 mg tablet 320 mg PO DAILY 03/14/20 [History Last Taken Unknown] biotin 10,000 mcg capsule 5,000 mcg PO DAILY SUPPLEMENT 02/27/22 [History Last Taken Unknown] potassium chloride 20 mEq tablet,extended release 20 meq PO BID #180 tabs 07/28/22 [Rx Last Taken Unknown] hydrochlorothiazide 25 mg tablet 25 mg PO DAILY #90 tabs 11/12/22 [Rx Last Taken Unknown] amoxicillin 875 mg-potassium clavulanate 125 mg tablet 1 tab PO BID #19 tabs 12/19/22 [Rx Last Taken Unknown] Allergy/AdvReac Type Severity Reaction Status Date / Time prednisone AdvReac ORAL THRUSH Verified 01/12/23 12:53 Family History Father CAD (coronary artery disease) Hypertension Mother CVA (cerebral vascular accident) Surgical History History of bilateral cataract extraction History of left heart catheterization (LHC) (~02/28/02) History of rotator cuff surgery History of tonsillectomy and adenoidectomy History of transurethral resection of prostate S/P TURP (status post transurethral resection of prostate) Social History Smoking Status: Former smoker alcohol intake: never substance use type: does not use caffeine: Yes Type: coffee Number of servings: 4 ROS ROS ED Constitutional Constitutional ED: Reports fever(s), subjective and other Details: Patient and his state he has had low-grade fever but no specific number Eyes Eyes: Denies blurry vision or change in vision ENT ENT ED: Reports rhinorrhea; Denies ear pain or sore throat Cardiovascular Cardiovascular: Denies chest pain, palpitations or racing heartbeat Respiratory/Chest Respiratory/Chest: Reports cough and sputum; Denies dyspnea Gastrointestinal Gastrointestinal: Reports nausea and vomiting; Denies diarrhea Musculoskeletal Musculoskeletal: Denies back pain, myalgias or neck pain Integumentary Denies rash Neurologic Neurologic: Denies headache(s) Hematologic/Lymphatic Hematologic/Lymphatic: Denies easy bleeding or easy bruising Allergic/Immunologic Allergic/Immunologic ED: Denies urticaria EXAM Physical Exam Narrative Exam Narrative: CONSTITUTIONAL: Patient is nontoxic in appearance. The patient looks comfortable. Work of breathing looks normal. He actually looks quite comfortable sitting in bed. HEENT: No notable trauma. Mucous membranes only minimally dry. No sinus tenderness. No indication of pain with swallowing. EYES: No conjunctival injection. No proptosis. Normal range of motion. NECK:No JVD. No stridor. CARDIOVASCULAR: Regular rate. Regular rhythm. Patient does have about a 2 out of 6 systolic murmur. No JVD. RESPIRATORY: No respiratory distress. Breathing is unlabored. He does have notable expiratory wheezes in all lopez. No rhonchi are heard. No rales. No pain with a deep breath. No chest wall tenderness. GASTROINTESTINAL: Not distended. Bowel sounds are normal. No tenderness. No guarding. No rebound. No palpable mass. No bruit is heard. His abdomen is really quite benign despite the report of abdominal soreness. There is no tenderness anywhere including epigastric. GENITOURINARY: No tenderness over the bladder. No CVA tenderness. MUSCULOSKELETAL: Atraumatic. No peripheral edema. No cord. No tenderness along the deep venous system. No asymmetry. No distended veins. NEUROLOGICAL: Patient is alert and appropriate. No focal deficit noted. SKIN: No noted rashes. No diaphoresis. PSYCHIATRIC: Patient is calm. Mood is appropriate. Const Vital Signs: 01/12/23 12:50 01/12/23 15:48 01/12/23 16:16 Temperature 99 F 98.5 F Temperature Source Temporal Oral Pulse Rate 87 82 Respiratory Rate 20 H 18 Blood Pressure 140/92 H 131/91 H Blood Pressure Mean 108 104 Pulse Ox 93 95 89 Oxygen Delivery Method Room Air Room Air Room Air 01/12/23 16:16 01/12/23 16:17 01/12/23 17:04 Temperature 98.5 F Temperature Source Oral Pulse Rate 89 89 Respiratory Rate 18 18 Blood Pressure 139/83 H Blood Pressure Mean 101 Pulse Ox 94 93 Oxygen Delivery Method Room Air Room Air MDM MDM MDM Narrative Medical decision making narrative: My independent interpretation the patient's chest x-ray shows little haziness at the base but it does not look like a formed infiltrate. Radiology questions possible viral pattern. Patient CBC shows no acute process. Patient's electrolytes show mildly low potassium but he is on potassium supplements which he is due to take today. Glucose is minimally up at 112. Viral studies negative. When the patient walked he did 92%. He states the breathing really helped him. He had not used his since last night. I encouraged him to maybe use a little bit more. I will also give him a dose of Decadron here because he is tapering down but still wheezing. With his tapering steroids I think he might need a little update. We discussed reasons to return and follow-up. Lab Data Attestation: I reviewed the patient's lab results. Labs: Laboratory Results - last 24 hr 01/12/23 01/12/23 15:40 15:40 WBC 10.8 RBC 5.28 Hgb 14.8 Hct 44.2 MCV 83.7 MCH 28.0 MCHC 33.5 RDW Std Deviation 46.2 H RDW Coeff of Benito 15.2 H Plt Count 257 MPV 9.5 Immature Gran % (Auto) 0.600 Neut % (Auto) 79.6 H Lymph % (Auto) 11.5 L [place] % (Auto) 6.8 Eos % (Auto) 1.0 Baso % (Auto) 0.5 Absolute Neuts (auto) 8.6 H Absolute Lymphs (auto) 1.24 Nucleated RBC % 0 Sodium 134 L Potassium 3.3 L Chloride 100 Carbon Dioxide 31.0 Anion Gap 3 L BUN 22 H Creatinine 0.99 Estim Creat Clear Calc 59.51 Est GFR (MDRD) Af Amer 93 Est GFR (MDRD) Non-Af 77 BUN/Creatinine Ratio 22.2 H Glucose 112 H Calcium 9.8 Radiography Diagnostic Testing: Clinical Impression(s) from Imaging Studies Chest X-Ray 01/12/23 15:52 IMPRESSION: Bilateral lower lobe infiltrates possibly due to viral pneumonia.. Electronically Signed: Clayton Marquez MD at 16:16 EDT Reading Location ID and State: [facility] / [place] , Service support , EKG Initial EKG: Comments: My independent interpretation the patient's EKG done for dyspnea shows normal sinus rhythm with an occasional PAC. No ventricular ectopy. No acute ST elevation or depression. UT interval, QRS duration are normal. QTc is mildly long at 486 ms. Discharge Plan Triage Chief Complaint: General Illness ED Provider: José Nguyen Dx/Rx/DC Orders Clinical Impression: Pneumonia, Acute bronchospasm, Hypokalemia Instructions: ED Pneumonia (Adult) Prescriptions: No Action metoprolol tartrate 25 mg tablet 25 mg PO BID amlodipine 10 mg tablet 10 mg PO DAILY valsartan 320 mg tablet 320 mg PO DAILY glucosamine-chondroitin 250 mg-200 mg tablet 250-200 mg tablet 2 tab PO DAILY cholecalciferol (vitamin D3) 50 mcg (2,000 unit) capsule 50 mcg PO DAILY glucosamine 375 sx-bwbiowpjd-gjk no1 500 mg-C 15 mg-emily 0.5 mg tablet [id number] mg tablet 2 tab PO DAILY multivitamin with folic acid 1 TABLET tablet 1 tab PO DAILY biotin 10,000 mcg capsule 5,000 mcg PO DAILY amoxicillin-pot clavulanate 875-125 mg tablet 1 tab PO BID Qty: 19 0RF potassium chloride 20 mEq tablet extended release 20 meq PO BID Qty: 180 4RF hydrochlorothiazide 25 mg tablet 25 mg PO DAILY Qty: 90 4RF Primary Care Provider: Omkar Lawrence Chi Referrals: Omkar Lawrence Chi, MD [Primary Care Provider] - 3-5 Days Disposition Disposition: Home, Self Care
[2023-01-12] MEDS: Ondansetron 4 MG/2 ML Vial IV (15:45)
--- NOTE | 2023-01-12 15:52 | RAD_ITS ---
STUDY: X-RAY CHEST REASON FOR EXAM: Male, 82 years old. cough TECHNIQUE: PA and lateral COMPARISON: None. FINDINGS: There are bilateral lower lobe reticular nodular interstitial infiltrates.. There is no demonstrated pleural abnormality. Normal size heart. Normal mediastinum and dewey. Normal visualized pulmonary arteries. Tortuous mildly calcified aortic arch and descending thoracic aorta. Dorsal spine demonstrates degenerative changes. Normal visualized ribs, clavicles, and shoulders. There is no demonstrated abnormality of the visualized soft tissue structures of the upper abdomen. RAD/Chest PA and Lateral IMPRESSION: Bilateral lower lobe infiltrates possibly due to viral pneumonia.. Electronically Signed: Clayton Marquez MD at 16:16 EDT ,
[2023-01-12 15:59] LABS: Absolute Lymphocyte Count 1.24 X10^3/uL (0.83-4.51); Absolute Neutrophil Count 8.6 X10^3/uL (2.0-7.7); Basophil# 0.05 X10^3/uL; Basophil% 0.5 % (0-1); Eosinophil# 0.11 X10^3/uL; Hematocrit 44.2 % (40-54); Hemoglobin 14.8 g/dL (13.0-16.5); Lymphocyte # 1.24 X10^3/ul (0.83-4.51); Lymphocyte % 11.5 % (19-41); Mean Corp Hgb Conc 33.5 g/dL (32-36); Mean Corpuscular Volume 83.7 fL (80-94); Mean Platelet Vol. 9.5 fl (6.2-12.0); Monocyte# 0.73 X10^3/uL; Monocyte% 6.8 % (0-10); NRBC Flagged by Analyzer 0 % (0-5); Neutrophil # 8.59 X10^3/uL (2.7-7.7); Neutrophil % 79.6 % (47-70); Platelet Count 257 K/mm3 (150-450); RBC Distribution Width CV 15.2 % (11.6-14.6); RBC Distribution Width SD 46.2 fl (35.1-43.9); Red Blood Count 5.28 M/mm3 (4.6-6.2); White Blood Count 10.8 K/mm3 (4.4-11.0)
[2023-01-12] MEDS: Ipratropium/Albuterol Sulfate 3 ML AMPUL.NEB INHALATION (16:15)
[2023-01-12 16:19] LABS: Anion Gap 3 (5-15); BUN 22 mg/dL (7-18); BUN/Creat Ratio 22.2 RATIO (10-20); Calcium,Total 9.8 mg/dL (8.5-10.1); Chloride 100 mmol/L (98-107); Creatinine, Serum 0.99 mg/dL (0.70-1.30); EST Glomerular Filtration Rate 77 mL/min (>60); Est Glom Filt Rate - Afr Amer 93 mL/min (>60); Estimated Creatinine Clearance 59.51 ml/min; Glucose 112 mg/dL (74-106); Potassium 3.3 mmol/L (3.5-5.1); Sodium Level 134 mmol/L (136-145)
--- NOTE | 2023-01-12 17:05 | ED.RN ---
HR 145 with ambulation
[2023-01-12] MEDS: dexAMETHasone 4 MG Tablet 10 MG PO (17:52)
== END 2023-01-12 17:56 | disposition home or self-care (01) ==
PROVIDERS: Emergency Provider Emergency Medicine; PCP Family Medicine Geriatric Medicine; Visit Provider Emergency Medicine
DX: J18.9 Pneumonia, unspecified organism (principal); J98.01 Acute bronchospasm; E87.6 Hypokalemia; I10 Essential (primary) hypertension; Z79.899 Other long term (current) drug therapy; Z87.891 Personal history of nicotine dependence
CPT/HCPCS: 71046; 80048; 85025; 87428; 93005; 94640; 96361; 96374; 99283; J7040; A4216; J2405

== ENCOUNTER → 2023-01-27 | Outpatient (CLI) | payer MEDICARE, SELFPAY ==
[2023-01-27 11:27] LABS: Absolute Lymphocyte Count 1.83 X10^3/uL (0.83-4.51); Absolute Neutrophil Count 3.4 X10^3/uL (2.0-7.7); Basophil# 0.05 X10^3/uL; Basophil% 0.8 % (0-1); Eosinophil# 0.22 X10^3/uL; Eosinophils% 3.7 % (0-5); Hematocrit 42.6 % (40-54); Hemoglobin 13.5 g/dL (13.0-16.5); Lymphocyte # 1.83 X10^3/ul (0.83-4.51); Lymphocyte % 30.9 % (19-41); Mean Corp Hgb Conc 31.7 g/dL (32-36); Mean Corpuscular Hgb 27.8 pg (27.0-32.0); Mean Corpuscular Volume 87.7 fL (80-94); Mean Platelet Vol. 9.6 fl (6.2-12.0); Monocyte# 0.45 X10^3/uL; Monocyte% 7.6 % (0-10); NRBC Flagged by Analyzer 0 % (0-5); Neutrophil # 3.35 X10^3/uL (2.7-7.7); Neutrophil % 56.7 % (47-70); Platelet Count 254 K/mm3 (150-450); RBC Distribution Width CV 15.2 % (11.6-14.6); RBC Distribution Width SD 48.5 fl (35.1-43.9); Red Blood Count 4.86 M/mm3 (4.6-6.2); White Blood Count 5.9 K/mm3 (4.4-11.0)
[2023-01-27 11:54] LABS: Vitamin D,25 Hydroxy 58.9 ng/mL
[2023-01-27 12:04] LABS: ALB/GLOB Ratio 0.8 RATIO (0.9-2.4); AST(SGOT) 30 U/L (15-37); Alanine Aminotransfer ALT/SGPT 46 U/L (16-61); Albumin, Serum 3.2 g/dL (3.2-5.0); Alkaline Phosphatase 41 U/L (45-117); Anion Gap 6 (5-15); BUN 16 mg/dL (7-18); BUN/Creat Ratio 16.3 RATIO (10-20); Calcium,Total 9.4 mg/dL (8.5-10.1); Chloride 106 mmol/L (98-107); Creatinine, Serum 0.98 mg/dL (0.70-1.30); EST Glomerular Filtration Rate 78 mL/min (>60); Est Glom Filt Rate - Afr Amer 94 mL/min (>60); Globulin 3.8 g/dL (2.2-4.2); Glucose 98 mg/dL (74-106); Potassium 3.4 mmol/L (3.5-5.1); Sodium Level 142 mmol/L (136-145); Thyroid Stim Hormone (TSH) 1.25 uIU/mL (0.358-3.74)
== END | disposition home or self-care (01) ==
PROVIDERS: PCP Family Medicine Geriatric Medicine; Referring Provider Family Medicine Geriatric Medicine; Visit Provider Family Medicine Geriatric Medicine
DX: I10 Essential (primary) hypertension (principal); E55.9 Vitamin D deficiency, unspecified
CPT/HCPCS: 36415; 80053; 82306; 84443; 85025

== ENCOUNTER → 2023-02-26 | Outpatient (CLI) | payer MEDICARE, SELFPAY ==
--- NOTE | 2023-02-26 12:41 | ECHOD_ITS ---
Reason For Study: MURMUR Procedure This was a 2D Doppler, Color Flow transthoracic echocardiogram. Exam performed in department. Left Ventricle Normal size and thickness. The left ventricular ejection fraction is 65 %. Normal diastology for age. Right Ventricle Normal right ventricle. Atria The left and right atria are normal. Mitral Valve Mild (1+) mitral valve insufficiency. Tricuspid Valve Trivial tricuspid valve insufficiency. Right ventricular systolic pressure estimated to be 51 mmHg. Aortic Valve Trisinus/trileaflet aortic valve. Mild aortic stenosis. Trivial aortic valve insufficiency. Pulmonic Valve The pulmonic valve is not well visualized. Great Vessels Mildly dilated aortic root. Pericardium/Pleural No pericardial effusion. MMode/2D Measurements & Calculations LVIDd: 5.3 cm IVSd: 0.91 cm LVOT diam: 2.0 cm LVIDs: 3.5 cm LVPWd: 1.0 cm LVOT area: 3.0 cm2 RVDd: 4.2 cm FS: 33.5 % Ao root diam: 3.3 cm LAV(MOD-bp): 64.1 ml LVAd ap4: 41.3 cm2 LAV(MOD-bp) Indexed: 29.8 ml/m2 LVLd ap4: 8.7 cm LAV(MOD-sp2): 65.2 ml EDV(MOD-sp4): 164.1 ml LAV(MOD-sp4): 60.0 ml EDV(sp4-el): 166.6 ml LVAs ap4: 23.5 cm2 LVLs ap4: 7.2 cm ESV(MOD-sp4): 63.8 ml ESV(sp4-el): 64.4 ml EF(MOD-sp4): 61.1 % EF(sp4-el): 61.3 % SV(MOD-sp4): 100.3 ml SV(sp4-el): 102.1 ml LA A4 area: 22.1 cm2 LA dimension(2D): 4.2 cm RA A4 area: 22.1 cm2 Time Measurements MV dec time: 0.26 sec Doppler Measurements & Calculations MV E max bakari: 79.8 cm/sec Lat Peak E' Bakari: 11.0 cm/sec Med Peak E' Bakari: 9.0 cm/sec MV A max bakari: 97.9 cm/sec E/E' lat: 7.2 E/E' med: 8.9 MV E/A: 0.81 Ao V2 max: 233.6 cm/sec LV V1 max: 104.9 cm/sec SV(LVOT): 70.4 ml Ao max P.8 mmHg LV V1 max P.4 mmHg Ao V2 mean: 163.3 cm/sec LV V1 mean P.3 mmHg Ao mean P.3 mmHg LV V1 mean: 70.7 cm/sec Ao V2 VTI: 52.1 cm LV V1 VTI: 23.3 cm AV (velocity ratio): 0.45 MICHAEL(I,D): 1.4 cm2 MICHAEL(V,D): 1.4 cm2 PA V2 max: 90.0 cm/sec TR max bakari: 348.0 cm/sec TR max P.4 mmHg ECHO/Echo Complete Interpretation Summary The left ventricular ejection fraction is 65 %. Mild (1+) mitral valve insufficiency. Right ventricular systolic pressure estimated to be 51 mmHg. Mild aortic stenosis. Mildly dilated aortic root. Mildly dilated abdominal aorta. Recommend ultrasound abdominal aorta for furthe r evaluation. Hepatic cyst noted as incidental finding. Recommend ultrasound liver for furthe r evaluation. Ordering Physician: Chayo Batista/Theron Dickinson Referring Physician: ZHANG SUGGS Performed By: Zenia Krishna RDCS
== END | disposition home or self-care (01) ==
LOC: CVS 12:40
PROVIDERS: PCP Family Medicine Geriatric Medicine; Referring Provider Physician Assistant Medical; Visit Provider Physician Assistant Medical
DX: R01.1 Cardiac murmur, unspecified (principal); I35.0 Nonrheumatic aortic (valve) stenosis
CPT/HCPCS: 93306

== ENCOUNTER → 2023-03-18 | Outpatient (CLI) | payer MEDICARE, SELFPAY ==
--- NOTE | 2023-03-18 08:47 | AAAS_ITS ---
Reason For Study: AAA Screening Aorta Measurements Aorta Doppler Measurements Proximal aorta measures1.81 x 1.79cm. in cross- Peak systolic flow velocities within the proximal sectional axis. aorta measure 108.6 cm/sec. Proximal aorta measures1.80cm. in longitudinal Peak systolic flow velocities within the mid aorta axis. measure 119.4 cm/sec. Mid aorta measures2.09 x 2.02cm. in cross- Peak systolic flow velocities within the distal sectional axis. aorta measure 103.1 cm/sec. Mid aorta measures2.06cm. in longitudinal axis. Distal aorta measures1.89 x 1.83cm. in cross- sectional axis. Distal aorta measures1.87cm. in longitudinal axis. Multiple anechoic nonvascularized structures noted within the liver. Left Iliac Artery Left iliac artery measures 1.40 x 1.40 cm. in the cross-sectional axis. Left iliac artery measures 1.38 cm. in the longitudinal axis. Peak systolic velocity in the left iliac artery measures 94.1 cm/sec. Right Iliac Artery Right iliac artery measures 1.17 x 1.19 cm. in the cross-sectional axis. Right iliac artery measures 1.17 cm. in the longitudinal axis. Peak systolic velocity in the right iliac artery measures 85 cm/sec. Procedure Aorta IVC Iliac vasculature or bypass grafts [id number]. Exam performed in department. VL/AAA Screening Interpretation Summary Aorta patent, normal caliber. Bilateral iliac arteries patent, normal caliber. Incidental finding, multiple anechoic non vascularized structures noted within the liver. Ordering Physician: Iwona Mireles Referring Physician: Omkar Lawrence Chi Performed By: Marychuy Paiz RVT
== END | disposition home or self-care (01) ==
LOC: CVS 08:46
PROVIDERS: PCP Family Medicine Geriatric Medicine; Referring Provider Physician Assistant Medical; Visit Provider Physician Assistant Medical
DX: I71.40 Abdominal aortic aneurysm, without rupture, unspecified (principal)
CPT/HCPCS: 76706

== ENCOUNTER → 2023-08-25 | Outpatient (CLI) | payer MEDICARE, SELFPAY ==
[2023-08-25 11:38] LABS: Absolute Lymphocyte Count 1.88 X10^3/uL (0.83-4.51); Absolute Neutrophil Count 4.3 X10^3/uL (2.0-7.7); Basophil# 0.05 X10^3/uL; Basophil% 0.7 % (0-1); Eosinophil# 0.22 X10^3/uL; Eosinophils% 3.1 % (0-5); Hematocrit 43.5 % (40-54); Hemoglobin 14.5 g/dL (13.0-16.5); Lymphocyte # 1.88 X10^3/ul (0.83-4.51); Lymphocyte % 26.6 % (19-41); Mean Corp Hgb Conc 33.3 g/dL (32-36); Mean Corpuscular Hgb 28.9 pg (27.0-32.0); Mean Corpuscular Volume 86.8 fL (80-94); Mean Platelet Vol. 9.6 fl (6.2-12.0); Monocyte# 0.62 X10^3/uL; Monocyte% 8.8 % (0-10); NRBC Flagged by Analyzer 0 % (0-5); Neutrophil # 4.28 X10^3/uL (2.7-7.7); Neutrophil % 60.5 % (47-70); Platelet Count 258 K/mm3 (150-450); RBC Distribution Width CV 15.1 % (11.6-14.6); Red Blood Count 5.01 M/mm3 (4.6-6.2); White Blood Count 7.1 K/mm3 (4.4-11.0)
[2023-08-25 12:03] LABS: ALB/GLOB Ratio 0.8 RATIO (0.9-2.4); AST(SGOT) 31 U/L (15-37); Alanine Aminotransfer ALT/SGPT 42 U/L (16-61); Albumin, Serum 3.4 g/dL (3.2-5.0); Alkaline Phosphatase 45 U/L (45-117); Anion Gap 5 (5-15); BUN 18 mg/dL (7-18); BUN/Creat Ratio 15.9 RATIO (10-20); Calcium,Total 9.2 mg/dL (8.5-10.1); Chloride 103 mmol/L (98-107); Creatinine, Serum 1.13 mg/dL (0.70-1.30); EST Glomerular Filtration Rate 66 mL/min (>60); Est Glom Filt Rate - Afr Amer 80 mL/min (>60); Globulin 4.1 g/dL (2.2-4.2); Glucose 127 mg/dL (74-106); Potassium 3.6 mmol/L (3.5-5.1); Protein, Total 7.5 g/dL (6.4-8.2); Sodium Level 137 mmol/L (136-145); Thyroid Stim Hormone (TSH) 2.16 uIU/mL (0.358-3.74)
[2023-08-25 13:07] LABS: Vitamin D,25 Hydroxy 53.4 ng/mL
== END | disposition home or self-care (01) ==
LOC: POLAB3 10:48
PROVIDERS: PCP Family Medicine Geriatric Medicine; Visit Provider Family Medicine Geriatric Medicine
DX: I10 Essential (primary) hypertension (principal); E55.9 Vitamin D deficiency, unspecified
CPT/HCPCS: 36415; 80053; 82306; 84443; 85025

== ENCOUNTER → 2024-02-23 | Outpatient (CLI) | payer MEDICARE, SELFPAY ==
[2024-02-23 13:28] LABS: Absolute Lymphocyte Count 1.88 X10^3/uL (0.83-4.51); Absolute Neutrophil Count 3.1 X10^3/uL (2.0-7.7); Basophil# 0.05 X10^3/uL; Basophil% 0.9 % (0-1); Eosinophil# 0.14 X10^3/uL; Eosinophils% 2.5 % (0-5); Hematocrit 42.2 % (40-54); Hemoglobin 13.3 g/dL (13.0-16.5); Lymphocyte # 1.88 X10^3/ul (0.83-4.51); Lymphocyte % 33.1 % (19-41); Mean Corp Hgb Conc 31.5 g/dL (32-36); Mean Corpuscular Hgb 27.5 pg (27.0-32.0); Mean Corpuscular Volume 87.2 fL (80-94); Mean Platelet Vol. 9.6 fl (6.2-12.0); Monocyte# 0.53 X10^3/uL; Monocyte% 9.3 % (0-10); NRBC Flagged by Analyzer 0 % (0-5); Neutrophil # 3.06 X10^3/uL (2.7-7.7); Neutrophil % 53.8 % (47-70); Platelet Count 220 K/mm3 (150-450); RBC Distribution Width CV 15.2 % (11.6-14.6); RBC Distribution Width SD 48.6 fl (35.1-43.9); Red Blood Count 4.84 M/mm3 (4.6-6.2); White Blood Count 5.7 K/mm3 (4.4-11.0)
[2024-02-23 14:01] LABS: ALB/GLOB Ratio 0.8 RATIO (0.9-2.4); AST(SGOT) 39 U/L (15-37); Alanine Aminotransfer ALT/SGPT 45 U/L (16-61); Albumin, Serum 3.3 g/dL (3.2-5.0); Alkaline Phosphatase 45 U/L (45-117); Anion Gap 7 (5-15); BUN 16 mg/dL (7-18); BUN/Creat Ratio 16.8 RATIO (10-20); Calcium,Total 9.7 mg/dL (8.5-10.1); Chloride 104 mmol/L (98-107); Cholesterol 161 mg/dL (200); Creatinine, Serum 0.95 mg/dL (0.70-1.30); EST Glomerular Filtration Rate 81 mL/min (>60); Est Glom Filt Rate - Afr Amer 97 mL/min (>60); Glucose 101 mg/dL (74-106); High Density Lipoprotein 43 mg/dL; Protein, Total 7.3 g/dL (6.4-8.2); Sodium Level 140 mmol/L (136-145); Thyroid Stim Hormone (TSH) 1.36 uIU/mL (0.358-3.74); Triglycerides 127 mg/dL; Very Low Density Lipoprotein 25 mg/dL (5-40)
== END | disposition home or self-care (01) ==
LOC: LAB 12:35
PROVIDERS: PCP Family Medicine Geriatric Medicine; Referring Provider Family Medicine Geriatric Medicine; Visit Provider Family Medicine Geriatric Medicine
DX: I10 Essential (primary) hypertension (principal); E55.9 Vitamin D deficiency, unspecified; E78.5 Hyperlipidemia, unspecified
CPT/HCPCS: 36415; 80053; 80061; 82306; 84443; 85025

== ENCOUNTER → 2024-08-18 | Outpatient (CLI) | payer MEDICARE, SELFPAY ==
[2024-08-18 13:39] LABS: Anion Gap 5 (5-15); BUN 20 mg/dL (7-18); BUN/Creat Ratio 19.2 RATIO (10-20); Calcium,Total 10.4 mg/dL (8.5-10.1); Chloride 105 mmol/L (98-107); Creatinine, Serum 1.04 mg/dL (0.70-1.30); EST Glomerular Filtration Rate 73 mL/min (>60); Est Glom Filt Rate - Afr Amer 88 mL/min (>60); Glucose 93 mg/dL (74-106); Potassium 4.6 mmol/L (3.5-5.1); Sodium Level 139 mmol/L (136-145)
== END | disposition home or self-care (01) ==
PROVIDERS: PCP Family Medicine Geriatric Medicine; Referring Provider Nurse Practitioner Gerontology; Visit Provider Nurse Practitioner Gerontology
DX: I10 Essential (primary) hypertension (principal)
CPT/HCPCS: 36415; 80048

== ENCOUNTER → 2024-09-21 | Outpatient (CLI) | payer MEDICARE, SELFPAY ==
[2024-09-21 15:33] LABS: Vitamin D,25 Hydroxy 46.6 ng/mL
[2024-09-21 15:40] LABS: ALB/GLOB Ratio 0.9 RATIO (0.9-2.4); AST(SGOT) 29 U/L (15-37); Alanine Aminotransfer ALT/SGPT 38 U/L (16-61); Albumin, Serum 3.8 g/dL (3.2-5.0); Alkaline Phosphatase 50 U/L (45-117); Anion Gap 8 (5-15); BUN 15 mg/dL (7-18); Calcium,Total 9.8 mg/dL (8.5-10.1); Chloride 105 mmol/L (98-107); Creatinine, Serum 1.07 mg/dL (0.70-1.30); EST Glomerular Filtration Rate 70 mL/min (>60); Est Glom Filt Rate - Afr Amer 85 mL/min (>60); Globulin 4.2 g/dL (2.2-4.2); Glucose 104 mg/dL (74-106); Potassium 3.9 mmol/L (3.5-5.1); Sodium Level 140 mmol/L (136-145)
[2024-09-21 15:44] LABS: PTHIN 54.5 pg/mL (18.4-80.1)
[2024-09-25 14:07] LABS: PROEL- Albumin 3.6 g/dL (2.9-4.4); PROEL- Alpha-1 Globulin 0.2 g/dL (0.0-0.4); PROEL- Alpha-2 Globulin 0.9 g/dL (0.4-1.0); PROEL- Beta Globulin 1.3 g/dL (0.7-1.3); PROEL- Gamma Globulin 1.1 g/dL (0.4-1.8); PROEL- Globulin, Total 3.5 g/dL (2.2-3.9); PROEL- TOTAL PROTEIN 7.1 g/dL (6.0-8.5); PROEL-M-Spike Not Observed g/dL (Not Observed)
== END | disposition home or self-care (01) ==
LOC: MFPLAB 12:00
PROVIDERS: PCP Family Medicine; Referring Provider Family Medicine; Visit Provider Family Medicine
DX: E83.52 Hypercalcemia (principal)
CPT/HCPCS: 36415; 80053; 82306; 83970; 84165; 84443

== ENCOUNTER 2024-11-25 04:57 | Emergency (ER) | payer MEDICARE, SELFPAY ==
[2024-11-25 04:58] VITALS: BP 181/102; PULSE 93; RESP 16; TEMP 36.9; O2SAT 97; BMI 34.3
[2024-11-25 05:19] VITALS: O2SAT 98
[2024-11-25] MEDS: 0.9% Normal Saline (500mL Bag) 500 ML 999 ML IV (05:25)
[2024-11-25] MEDS: Ondansetron 4 MG/2 ML Vial IV (05:25)
--- NOTE | 2024-11-25 05:30 | ED.VIS.GI ---
HPI HPI - GI History of Present Illness Chief Complaint: Nausea/Vomiting Informant: patient and spouse/S.O. Narrative Narrative: 84-year-old male presents with 2-3 days of cough and chest congestion without dyspnea or chest pain, malaise, some chills, headaches and bodyaches, and vomiting. He gets nauseated after meals. Denies any abdominal pain. No diarrhea, he had a bowel movement yesterday and another 1 this morning that were fairly normal. He has had no blood or melena in stools, no hematemesis. states she has had a cold lately and there have been lots of people at [facility] who have been out due to illness. [facility] Medical History Premature ventricular contraction GERD (gastroesophageal reflux disease) BPH (benign prostatic hyperplasia) VSD (ventricular septal defect) Nonrheumatic aortic (valve) stenosis Essential hypertension Home Medications ?Medication ?Instructions ?Recorded ?Last Taken ?Type multivitamin with folic acid 400 1 tab PO DAILY vitamin 11/02/14 Unknown History mcg tablet cholecalciferol (vitamin D3) 50 50 mcg PO DAILY 03/14/20 Unknown History mcg (2,000 unit) capsule glucosamine-chondroitin 250 mg-200 2 tab PO DAILY 03/14/20 Unknown History mg tablet (Osteo Bi-Flex) biotin 10,000 mcg capsule 5,000 mcg PO DAILY SUPPLEMENT 02/27/22 Unknown History carvedilol 12.5 mg tablet 12.5 mg PO BID #180 tabs 08/10/24 Unknown Rx spironolactone 25 mg tablet 25 mg PO QDAY #90 tabs 08/15/24 Unknown Rx amlodipine 10 mg tablet 10 mg PO DAILY #90 tabs 09/15/24 Unknown Rx valsartan 320 mg tablet 320 mg PO DAILY #90 tabs 09/15/24 Unknown Rx ondansetron 8 mg disintegrating 8 mg PO Q8H PRN nausea and 11/25/24 Unknown Rx tablet vomiting #15 tabs Allergy/AdvReac Type Severity Reaction Status Date / Time prednisone AdvReac ORAL THRUSH Verified 11/25/24 05:01 Family History Father CAD (coronary artery disease) Hypertension Mother CVA (cerebral vascular accident) Surgical History History of bilateral cataract extraction History of rotator cuff surgery S/P TURP (status post transurethral resection of prostate) History of left heart catheterization (LHC) (~02/28/02) History of tonsillectomy and adenoidectomy History of transurethral resection of prostate Social History Smoking Status: Former smoker alcohol intake: never substance use type: does not use caffeine: Yes Type: coffee Number of servings: 4 ROS ROS ED Constitutional Constitutional ED: Reports body ache(s), chills, fatigue, headache(s) and malaise; Denies fever(s) Eyes Eyes: Denies change in vision or diplopia ENT ENT ED: Denies rhinorrhea or sore throat Cardiovascular Cardiovascular: Denies chest pain or palpitations Respiratory/Chest Respiratory/Chest: Reports cough and sputum; Denies dyspnea or dyspnea on exertion Gastrointestinal Gastrointestinal: Reports diarrhea, nausea and vomiting; Denies abdominal pain or melena Genitourinary Genitourinary ED: Denies dysuria or hematuria Musculoskeletal Musculoskeletal: Denies back pain or neck pain Integumentary Denies abscess or rash Neurologic Neurologic: Denies paresthesias or weakness Psychiatric Psychiatric: Denies anxiety or suicidal thoughts EXAM Physical Exam Const Vital Signs: 11/25/24 04:58 11/25/24 05:19 Temperature 98.4 F Temperature Source Oral Pulse Rate 93 Respiratory Rate 16 Blood Pressure 181/102 H Blood Pressure Mean 128 Pulse Ox 97 98 Oxygen Delivery Method Room Air Room Air Positive well nourished and well developed Constitutional Narrative: well-appearing, no distress General Appearance ED: well developed and NAD HEENT Reports moist mucous membranes normocephalic and atraumatic Eyes PERRL and EOMs intact bilaterally Neck full ROM and supple Resp normal respiratory effort Resp Narrative: Slight expiratory wheezes otherwise clear. Conversive in full sentences. Cardio regular rate, regular rhythm and no murmurs Rate: Negative for tachycardic GI non-tender and non-distended GI Narrative: Abdominal obesity. Benign abdomen. Auscultation: normoactive bowel sounds Palpation: soft Back/Spine no CVA tenderness General Back: other FROM Extremity normal to inspection and no calf tenderness General Extremety ED: Negative for edema, pulses abnormal or tenderness General Extremity: Negative for edema or pulses abnormal Neuro oriented x3, CN's II-XII intact bilaterally and no sensory deficits noted Sensorium / Orientation: awake and alert Motor Exam: strength 5/5 throughout Psych mental status grossly normal and thought process normal Skin no rashes or lesions noted and no wounds MDM MDM MDM Narrative Medical decision making narrative: Patient with a cough, some subjective fevers, nausea/vomiting without diarrhea or abdominal pain/tenderness. His lungs are clear, his oxygenation is excellent, and other than hypertension his vital signs are normal. I think this sounds like an infection. There has been a lot of viral URIs, LRI's, and gastroenteritis in the region recently. I did a two-view chest x-ray, on my interpretation it shows no pneumonia, radiology was in agreement. His labs are noted and fairly unremarkable. His white blood count is at the high end of normal with a trend toward leftward shift but there is no bandemia. He has a sinus rhythm on the monitor, I do not think this is cardiac in etiology given the lack of pulmonary edema, pleural effusions, peripheral edema, orthopnea, or dyspnea/angina/chest discomfort symptoms. Viral swab is negative for COVID/influenza/RSV. After Zofran and IV fluids, he feels a lot better. He has a headache which I think is part of this so I gave him some Tylenol for which she was amenable to. We discussed the fact that my suspicion is low of this being cardiac in etiology, as his repeat systolic blood pressure is 163. I reviewed his prior echo from 2022 he has no history of congestive heart failure his ejection fraction was 65%. At this time I see no indication for antibiotics and I recommend supportive care with a prescription for Zofran, fluids, and outpatient follow-up after the weekend if still symptomatic. He and are comfortable with that plan we discussed reasons to return. History & Record Review Additional record(s) reviewed:: Prior labs (Echo 2022) Lab Data Attestation: I reviewed the patient's lab results. Labs: Laboratory Results - last 24 hr 11/25/24 05:23 WBC 10.8 RBC 5.18 Hgb 14.7 Hct 42.9 MCV 82.8 MCH 28.4 MCHC 34.3 RDW Std Deviation 44.0 H RDW Coeff of Benito 14.6 Plt Count 230 MPV 9.2 Immature Gran % (Auto) 0.300 Neut % (Auto) 80.3 H Lymph % (Auto) 12.5 L [place] % (Auto) 6.6 Eos % (Auto) 0.0 Baso % (Auto) 0.3 Absolute Neuts (auto) 8.7 H Absolute Lymphs (auto) 1.35 Nucleated RBC % 0 Sodium 134 Potassium 3.7 Chloride Direct 98 Carbon Dioxide 22.0 Anion Gap 15 BUN 17 Creatinine 0.92 Estim Creat Clear Calc 74.13 Est GFR (MDRD) Non-Af 83 BUN/Creatinine Ratio 18.2 Glucose 142 H Calcium 11.1 H Radiography Diagnostic Testing: Clinical Impression(s) from Imaging Studies Chest X-Ray 11/25/24 05:35 IMPRESSION: No evidence of acute disease. Reading Location: [facility] Rhythm Strip Rhythm Strip: Sinus Rhythm Rate: 90 Ectopy: None Discharge Plan Triage Chief Complaint: Nausea/Vomiting ED Provider: Viral Miller Dx/Rx/DC Orders Clinical Impression: Acute viral syndrome, Accelerated hypertension Instructions: Blood Pressure Check Steps, ED Viral Syndrome (Adult) Prescriptions: New ondansetron 8 mg tablet,disintegrating 8 mg PO Q8H PRN (Reason: nausea and vomiting) Qty: 15 0RF No Action glucosamine-chondroitin [Osteo Bi-Flex] 250-200 mg tablet 2 tab PO DAILY cholecalciferol (vitamin D3) 50 mcg (2,000 unit) capsule 50 mcg PO DAILY multivitamin with folic acid 1 TABLET tablet 1 tab PO DAILY biotin 10,000 mcg capsule 5,000 mcg PO DAILY carvedilol 12.5 mg tablet 12.5 mg PO BID Qty: 180 3RF Rx Instructions: must administer with a meal/food spironolactone 25 mg tablet 25 mg PO QDAY Qty: 90 3RF amlodipine 10 mg tablet 10 mg PO DAILY Qty: 90 3RF valsartan 320 mg tablet 320 mg PO DAILY Qty: 90 3RF Primary Care Provider: Thomas Bernard Referrals: Thomas Bernard MD [Primary Care Provider] - 3-5 Days if not improving Activity Restrictions/Additional Instructions: Even if you are feeling better after the weekend, make sure you follow-up to have your blood pressure rechecked. It was in the 160s here after you were feeling better, 181/102 prior to that. This may have been due to feeling poorly or just the fact that you were having to be seen in the emergency department, so safer to make sure it has come down. If you are having severe abdominal pain, chest pain, or trouble breathing, return to the ER immediately. Otherwise, follow-up with your primary care and drink fluids as best that you can. Print Language: Ecuadorean Disposition Disposition: Home, Self Care
[2024-11-25 05:33] LABS: Absolute Lymphocyte Count 1.35 X10^3/uL (0.83-4.51); Absolute Neutrophil Count 8.7 X10^3/uL (2.0-7.7); Basophil# 0.03 X10^3/uL; Basophil% 0.3 % (0-1); Hematocrit 42.9 % (40-54); Hemoglobin 14.7 g/dL (13.0-16.5); Lymphocyte # 1.35 X10^3/ul (0.83-4.51); Lymphocyte % 12.5 % (19-41); Mean Corp Hgb Conc 34.3 g/dL (32-36); Mean Corpuscular Hgb 28.4 pg (27.0-32.0); Mean Corpuscular Volume 82.8 fL (80-94); Mean Platelet Vol. 9.2 fl (6.2-12.0); Monocyte# 0.71 X10^3/uL; Monocyte% 6.6 % (0-10); NRBC Flagged by Analyzer 0 % (0-5); Neutrophil # 8.66 X10^3/uL (2.7-7.7); Neutrophil % 80.3 % (47-70); Platelet Count 230 K/mm3 (150-450); RBC Distribution Width CV 14.6 % (11.6-14.6); Red Blood Count 5.18 M/mm3 (4.6-6.2); White Blood Count 10.8 K/mm3 (4.4-11.0)
--- NOTE | 2024-11-25 05:35 | RAD_ITS ---
PROCEDURE: CHEST PA AND LATERAL REASON FOR EXAM: Cough TECHNIQUE: PA and lateral views of the chest. COMPARISON: 01/12/2023 FINDINGS: The lungs appear clear. No pleural effusion. The cardiac and mediastinal contours appear within limits. Ectatic appearing thoracic aorta. Mid to lower thoracic osteophyte formation. RAD/Chest PA and Lateral IMPRESSION: No evidence of acute disease. Reading Location: [id number]
[2024-11-25 05:53] LABS: Anion Gap 15 (5-15); BUN 17 mg/dL (4-19); BUN/Creat Ratio 18.2 RATIO (10-20); Calcium 11.1 mg/dL (7.6-11.0); Chloride 98 mmol/L (96-108); Creatinine, Serum 0.92 mg/dL (0.70-1.20); EST Glomerular Filtration Rate 83 (>60); Estimated Creatinine Clearance 74.13 ml/min; Glucose 142 mg/dL (70-99); Potassium 3.7 mmol/L (3.3-5.1); Sodium Level 134 mmol/L (133-145)
[2024-11-25 07:00] VITALS: BP 157/93; PULSE 85; RESP 18; TEMP 36.8; O2SAT 95
[2024-11-25] MEDS: Acetaminophen 500 MG Tablet 1000 MG PO (07:16)
== END 2024-11-25 07:19 | disposition home or self-care (01) ==
PROVIDERS: Emergency Provider Emergency Medicine; PCP Family Medicine; Visit Provider Emergency Medicine
DX: B34.9 Viral infection, unspecified (principal); I10 Essential (primary) hypertension; Z87.891 Personal history of nicotine dependence; R05.9 Cough, unspecified; Z79.899 Other long term (current) drug therapy; Z98.41 Cataract extraction status, right eye; Z98.42 Cataract extraction status, left eye
CPT/HCPCS: 71046; 80048; 85025; 87631; 96360; 99284; J2405

== ENCOUNTER → 2024-11-30 | Outpatient (CLI) | payer MEDICARE, SELFPAY ==
--- NOTE | 2024-11-30 12:32 | RAD_ITS ---
PROCEDURE: CHEST PA AND LATERAL REASON FOR EXAM: Chest congestion. TECHNIQUE: Frontal and lateral views of the chest. COMPARISON: Comparison is made with prior study dated November 25, 2024. FINDINGS: The heart is not enlarged. Hyperinflation. No acute abnormality is seen. Degenerative changes of the dorsal spine as well as the right shoulder. Tortuosity of the descending thoracic aorta. RAD/Chest PA and Lateral IMPRESSION: Hyperinflation. No acute abnormality is seen. Reading Location: [id number]
== END | disposition home or self-care (01) ==
LOC: MTRAD 12:31
PROVIDERS: PCP Family Medicine
DX: J06.9 Acute upper respiratory infection, unspecified (principal)
CPT/HCPCS: 71046

== ENCOUNTER → 2025-03-27 | Outpatient (CLI) | payer MEDICARE, SELFPAY ==
[2025-03-27 13:58] LABS: AST(SGOT) 33 U/L (<=37); Alanine Aminotransfer ALT/SGPT 33 U/L (<=46); Albumin, Serum 4.1 g/dL (3.4-4.8); Alkaline Phosphatase 49 U/L (40-129); Anion Gap 12 (5-15); BUN 14 mg/dL (4-19); BUN/Creat Ratio 16.7 RATIO (10-20); Calcium,Total 9.9 mg/dL (7.6-11.0); Carbon Dioxide 23.4 mmol/L (21.0-32.0); Chloride 104 mmol/L (98-108); Cholesterol 167 mg/dL (<=200); Globulin 3.4 g/dL (2.2-4.2); Glucose 113 mg/dL (70-99); Low Density Lipoprotein Calc. 98 mg/dL; Potassium 4.1 mmol/L (3.3-5.1); Triglycerides 154 mg/dL; Very Low Density Lipoprotein 31 mg/dL (5-40); Vitamin D,25 Hydroxy 53.5 ng/mL (30-100); cholesterol:hdl ratio screen 4.36
[2025-03-27 21:08] LABS: Creatinine, Urine (random) 189.00 mg/dL (39.00-259.00); Microalbumin,Random Urine < 12.0 mg/L (NO RANGE EST.)
== END | disposition home or self-care (01) ==
LOC: MTLAB 10:56
PROVIDERS: PCP Family Medicine; Referring Provider Family Medicine; Visit Provider Family Medicine
DX: I10 Essential (primary) hypertension (principal); E55.9 Vitamin D deficiency, unspecified; E78.5 Hyperlipidemia, unspecified; E66.812 Obesity, class 2
CPT/HCPCS: 80053; 80061; 82043; 82306; 82570; 83036

== ENCOUNTER → 2025-09-26 | Outpatient (CLI) | payer MEDICARE, SELFPAY ==
--- OUTSIDE RECORDS SUMMARY | 2025-09-26 16:29 | XMS RPT_ITS | CCD ---
Author Organization [facility] Care Team Providers Care Etl Bi Developer Name Role Phone SUPPSIVA CHRISTOPHER Unavailable Unavailable ES, ZHANG-CHI Unavailable Unavailable SUPPAN, CHRISTOPHER Unavailable Unavailable ES, ZHANG-CHI Unavailable Unavailable Es, Dr. Zhang Aragon Primary Care Provider 1([facility])[phone] Es, Dr. Zhang Aragon Referring Provider 1([facility])[phone] CHRIS Rooney Attending Provider Es, Dr. Zhang Aragon Primary Care Provider 1([facility])[phone] Es, Dr. Zhang Aragon Referring Provider 1([facility])[phone] CHRIS Rooney Attending Provider Dr. Theron Dickinson Attending Provider 1([facility])[phone] Es, Dr. Zhang Aragon Primary Care Provider 1([facility])[phone] Es, Dr. Zhang Aragon Referring Provider 1([facility])[phone] Theron Dickinson Attending Provider 1([facility])[phone] Es, Dr. Zhang Aragon Primary Care Provider 1([facility])[phone] Dr. Yoly Paige Attending Provider 1([facility])[phone] Thomas Garcia Attending Provider 1([facility])[phone] Zhang Lawrence Chi Primary Care Provider 1([facility])[phone] Es, Dr. Zhang Aragon Referring Provider 1([facility])[phone] Jones Arias Attending Provider 1([facility])[phone] Zhang Lawrence MD, Chi Primary Care Provider 1([facility] )[phone] Iwona Nieto Attending Provider 1([facility])[phone] Iwona Nieto Referring Provider 1([facility])[phone] Marco Antonio WILLOUGHBY, Dr. Guzman Primary Care Provider 1([facility])[phone] Marco Antonio WILLOUGHBY, Dr. Guzman Attending Provider Marco Antonio WILLOUGHBY, Dr. Guzman Referring Provider Angela WILLOUGHBY, Dr. Stratton Attending Provider Angela WILLOUGHBY, Dr. Stratton Emergency Provider Nikhil SPARE HAND CARDING-C, Sakshi Attending Provider [phone] Nikhil SPARE HAND CARDING-C, Sakshi Referring Provider Es WILLOUGHBY, Dr. Zhang Aragon Referring Provider Chi SPARE HAND CARDING-C, Iwona Attending Provider Marco Antonio WILLOUGHBY, Dr. Guzman Primary Care Provider Marco Antonio WILLOUGHBY, Dr. Guzman Attending Provider Marco Antonio WILLOUGHBY, Dr. Guzman Referring Provider Viral Miller Attending Unavailable Bernard, Thomas Primary Care Unavailable Mirlees SPARE HAND CARDING, Iwona Attending Unavailable Chi SPARE HAND CARDING, Iwona Referring Unavailable Es, Zhang Chi Primary Care Unavailable Michael Sutton Attending Unavailable Bernard, Thomas Referring Unavailable Bernard, Thomas Primary Care Unavailable Chi SPARE HAND CARDING, Iwona Attending Unavailable Es, Zhang Chi Primary Care Unavailable Es, Zhang Chi Referring Unavailable Chi SPARE HAND CARDING, Iwona Attending Unavailable Es, Zhang Chi Referring Unavailable Bernard, Thomas Primary Care Unavailable Bernard, Thomas Primary Care Unavailable Bernard, Thomas Attending Unavailable Bernard, Thomas Referring Unavailable Shankel SPARE HAND CARDING, Sakshi Attending Unavailable Shankel SPARE HAND CARDING, Sakshi Referring Unavailable Bernard, Thomas Primary Care Unavailable Bernard, Thomas Attending Unavailable Bernard, Thomas Referring Unavailable Bernard, Thomas Primary Care Unavailable Marco Antonio WILLOUGHBY, Dr. Guzman Primary Care Physician Dr. Thomas Bernard MD Attending Physician Michael Sutton Attending Physician Allergies Allergy Classification Reported Allergen(s) Allergy Type Date of Onset Reaction(s) Facility (13 sources) predniSONE Drug Allergy 07-25-2021 ORAL THRUSH [facility] (1 source) predniSONE Drug Allergy 07-06-2025 [facility] Repository Medications Current Medications Medication Drug Class(es) Dates Sig (Normalized) Sig (Original) amLODIPine 10 mg oral tablet (16 sources) Dihydropyridine Calcium Channel Yesenia Start: 03-14-2020 End: 09-15-2024 take 1 tablet by mouth once daily benzonatate 100 mg oral capsule (1 source) Non-narcotic Antitussive Start: 07-06-2025 take 2 capsules by mouth three times daily as needed for cough Benzonatate 100 mg capsule Active 200 mg PO THREE TIMES A DAY as needed for cough 30 0 July 06, 2025 12:00am Complies with drug therapy biotin 10 mg oral capsule (20 sources) Start: 02-27-2022 Start: 02-27-2022 take 5000 ug by mout h once daily Biotin Active 5000 MCG PO DAILY February 27, 2022 12:30pm Start: 03-03-2019 End: 02-27-2022 take 1 capsule by mouth once daily Biotin 10,000 MCG capsule Discontinued 10334 ug PO DAILY March 03, 2019 12:00am February 27, 2022 1:30pm SUPPLEMENT carvedilol 12.5 mg oral tablet (6 sources) alpha-Adrenergic Yesenia, beta-Adrenergic Yesenia Start: 07-24-2024 End: 08-10-2024 take 1 tablet by mouth twice daily at mealtime cholecalciferol 0.05 mg oral capsule (13 sources) Vitamin D Start: 03-14-2020 take 1 capsule by mouth once daily chondroitin sulfates 200 mg / glucosamine hydrochloride 250 mg oral tablet (13 sources) Start: 03-14-2020 glucosamine 375 tr-krpidmgaz-ylu no1 500 mg-C 15 mg-emily 0.5 mg tablet (10 sources) Start: 03-14-2020 take 1 tablet by mouth once daily glucosamine 375 wl-vszqmvjui-acq no1 500 mg-C 15 mg-emily 0.5 mg tablet Active 2 TABLET PO DAILY March 14, 2020 10:32am Start: 03-14-2020 take 1 tablet by leeroy th once daily glucosamine 375 sw-mcztymkah-zml no1 500 mg-C 15 mg-emily 0.5 mg tablet Active 2 TABLET PO DAILY March 13, 2020 11:00pm Start: 03-14-2020 take 1 tablet by leeroy th once daily glucosamine 375 ep-nahrghqse-hrz no1 500 mg-C 15 mg-emily 0.5 mg tablet Active 2 TABLET PO DAILY March 14, 2020 12:00am ipratropium bromide 0.021 mg/actuat metered dose nasal spray (1 source) Anticholinergic Start: 07-06-2025 Ipratropium [place] 21 mcg (0.03 %) spray,non-aerosol Active 2 NMA INTRANASAL 2 to 3 times per day as needed for postnasal drainage July 06, 2025 12:00am administer into each nostril Complies with drug therapy magnesium oxide 400 mg oral capsule (2 sources) Start: 01-22-2025 take 1 capsule by mouth twice daily Multivitamin With Folic Acid (10 sources) Start: 11-02-2014 take 1 tablet by mouth once daily Multivitamin With Folic Acid Active 1 TABLET PO DAILY November 02, 2014 2:19pm Start: 11-02-2014 take 1 tablet by leeroy th once daily Multivitamin With Folic Acid Active 1 TABLET PO DAILY November 02, 2014 12:00am Start: 11-02-2014 take 1 tablet by leeroy th once daily Multivitamin With Folic Acid Active 1 TABLET PO DAILY November 02, 2014 1:00am Multivitamin With Folic Acid 1 TABLET tablet (3 sources) Start: 11-02-2014 take 1 tablet by leeroy th once daily Start: 11-02-2014 take 1 tablet by leeroy th once daily Multivitamin With Folic Acid 1 TABLET tablet Active 1 {tbl} PO DAILY November 02, 2014 1:00am vitamin Start: 11-02-2014 take 1 tablet by leeroy th once daily Multivitamin With Folic Acid 1 TABLET tablet Active 1 {tbl} PO DAILY November 02, 2014 1:00am ondansetron 8 mg disintegrating oral tablet (3 sources) Serotonin-3 Receptor Antagonist Start: 11-25-2024 take 1 tablet by mouth every eight hours as needed for nausea and vomiting spironolactone 25 mg oral tablet (6 sources) Aldosterone Antagonist Start: 08-10-2024 End: 08-15-2024 take 1 tablet by mouth once daily valsartan 320 mg oral tablet (16 sources) Angiotensin 2 Receptor Yesenia Start: 03-14-2020 End: 09-15-2024 take 1 tablet by mouth once daily Completed/Discontinued Medications Medication Drug Class(es) Dates Sig (Normalized) Sig (Original) acetaminophen 500 mg oral tablet (13 sources) Start: 03-10-2019 End: 03-14-2020 take 1 tablet by mouth every four hours as needed for pain Acetaminophen 500 MG tablet Discontinued 500 mg PO EVERY 4 HOURS NEEDED as needed for Pain 20 March 10, 2019 12:00am March 14, 2020 10:34am amLODIPine 5 mg / benazepril hydrochloride 20 mg oral capsule (13 sources) Dihydropyridine Calcium Channel Yesenia, Angiotensin Converting Enzyme Inhibitor Start: 11-02-2014 End: 03-14-2020 Amlodipine-Benazep ril 1 EACH capsule Discontinued 1 {tbl} PO TWICE A DAY November 02, 2014 1:00am March 14, 2020 10:30am blood pressure Start: 11-02-2014 End: 03-14-2020 take 1 tablet by mouth twice daily Amlodipine-Benazepril Discontinued 1 TABLET PO TWICE A DAY November 02, 2014 12:00am March 14, 2020 9:30am amoxicillin 875 mg oral tablet (12 sources) Penicillin-class Antibacterial Start: 07-25-2022 End: 10-09-2022 take 1 tablet by mouth twice daily Amoxicillin 875 mg tablet Discontinued 875 mg PO TWICE A DAY July 25, 2022 12:00am October 09, 2022 3:16pm amoxicillin 875 mg / clavulanate 125 mg oral tablet (20 sources) Penicillin-class Antibacterial Start: 12-19-2022 End: 07-23-2023 Amoxicillin-Pot Clavulanate 875-125 mg tablet Discontinued 1 {tbl} PO TWICE A DAY December 19, 2022 12:00am July 23, 2023 1:32pm Start: 12-19-2022 End: 07-23-2023 take 1 tablet by mouth twice daily Amoxicillin-Pot Clavulanate Discontinued 1 TABLET PO TWICE A DAY December 18, 2022 11:00pm July 23, 2023 12:32pm Start: 07-19-2021 End: 07-29-2021 Amoxicillin-Pot Clavulanate (Augmentin) 875-125 mg tablet Discontinued 1 {tbl} PO Q12H 20 10 0 July 19, 2021 12:00am July 28, 2021 12:00am July 29, 2021 12:01am Acute sinusitis, unspecified aspirin 81 mg chewable tablet (13 sources) Platelet Aggregation Inhibitor, Nonsteroidal Anti-inflammatory Drug Start: 11-02-2014 End: 03-30-2019 take 1 tablet by mouth once daily Aspirin 81 MG Tab.Chew Discontinued 81 mg PO DAILY@0800 November 02, 2014 1:00am March 30, 2019 9:33am calcium carbonate 1250 mg / cholecalciferol 600 unt oral tablet (13 sources) Vitamin D Start: 03-03-2019 End: 03-14-2020 Calcium Carbonate-Vitamin D3 1 EACH tablet Discontinued 1 NMA PO DAILY March 03, 2019 12:00am March 14, 2020 10:34am SUPPLEMENT Start: 03-03-2019 End: 03-14-2020 Calcium Carbonate-Vitamin D3 Discontinued 1 EACH PO DAILY March 02, 2019 11:00pm March 14, 2020 9:34am cloNIDine hydrochloride 0.1 mg oral tablet (3 sources) Central alpha-2 Adrenergic Agonist Start: 07-24-2024 End: 07-24-2024 take 1 tablet by mouth three times daily Clonidine Hcl 0.1 mg tablet Discontinued 0.1 mg PO THREE TIMES A DAY July 24, 2024 12:00am July 24, 2024 10:28am docusate sodium 100 mg oral capsule (13 sources) Start: 08-27-2015 End: 03-14-2020 take 1 capsule by mouth twice daily as needed for constipation Docusate Sodium 100 MG capsule Discontinued 100 mg PO TWICE DAILY NEEDED as needed for Constipation 10 0 August 27, 2015 1:00am March 14, 2020 10:34am Hnjzvkev-Cznya-Oig4-C- Emily-Bor (Rcvvaqhpmmb-Bhigc-Yzm Complex) 797-639-12-0.5 mg tablet (3 sources) Start: 03-14-2020 End: 07-24-2024 Gnulmgpj-Sgzmf-Leh0-C -Emily-Bor (Dxpoylwqdqm-Uhkck-Dk m Complex) 241-147-76-0.5 mg tablet Discontinued 2 {tbl} PO DAILY March 14, 2020 12:00am July 24, 2024 10:19am hydroCHLOROthiazide 25 mg oral tablet (20 sources) Thiazide Diuretic Start: 03-14-2020 End: 08-10-2024 take 1 tablet by mouth once daily Hydrochlorothiazide 25 mg tablet Discontinued 25 mg PO DAILY 90 4 January 04, 2024 8:33am August 10, 2024 4:57pm ibuprofen 600 mg oral tablet (13 sources) Nonsteroidal Anti-inflammato ry Drug Start: 03-10-2019 End: 03-14-2020 take 1 tablet by mouth every six hours as needed for pain Ibuprofen 600 MG tablet Discontinued 600 mg PO EVERY 6 HOURS NEEDED as needed for Pain 20 0 March 10, 2019 11:24am March 14, 2020 10:34am metoprolol tartrate 25 mg oral tablet (20 sources) beta-Adrenergic Yesenia Start: 07-24-2024 End: 07-24-2024 take 2 tablets by mouth twice daily Metoprolol Tartrate 25 mg tablet Discontinued 50 mg PO TWICE A DAY July 24, 2024 10:18am July 24, 2024 10:29am Start: 03-14-2020 End: 07-24-2024 take 1 tablet by mouth twice daily Metoprolol Tartrate 25 mg tablet Discontinued 25 mg PO TWICE A DAY March 14, 2020 12:00am July 24, 2024 10:18am Start: 11-02-2014 End: 03-14-2020 Metoprolol Tartrate 100 MG t ablet Discontinued 50 mg PO TWICE A DAY November 02, 2014 1:00am March 14, 2020 10:30am blood pressure Start: 11-02-2014 End: 03-14-2020 take 50 mg by mouth twice daily Metoprolol Tartrate Di scontinued 50 MG PO TWICE A DAY November 02, 2014 12:00am March 14, 2020 9:30am Fisher-3 Fatty Acids-Fish Oil (10 sources) Start: 03-03-2019 End: 03-14-2020 Fisher-3 Fatty Acids-Fish Oil Discontinued 1 EACH PO DAILY March 03, 2019 9:05am March 14, 2020 10:34am Start: 03-03-2019 End: 03-14-2020 Fisher-3 Fatty Acids-Fish Oil Discontinued 1 EACH PO DAILY March 02, 2019 11:00pm March 14, 2020 9:34am Start: 03-03-2019 End: 03-14-2020 Fisher-3 Fatty Acids-Fish Oil Discontinued 1 EACH PO DAILY March 03, 2019 12:00am March 14, 2020 10:34am Fisher-3 Fatty Acids-Fish Oil 1 EACH capsule,delayed release(DR/EC) (3 sources) Start: 03-03-2019 End: 03-14-2020 Fisher-3 Fatty Acids-Fish Oil 1 EACH capsule,delayed release(DR/EC) Discontinued 1 NMA PO DAILY March 03, 2019 12:00am March 14, 2020 10:34am SUPPLEMENT Start: 03-03-2019 End: 03-14-2020 Fisher-3 Fatty Acids-Fish Oil 1 EACH capsule,delayed release(DR/EC) Discontinued 1 NMA PO DAILY March 03, 2019 12:00am March 14, 2020 10:34am potassium chloride 20 meq extended release oral tablet (20 sources) Start: 04-05-2020 End: 08-10-2024 take 1 tablet by mouth twice daily Potassium Chloride 20 mEq tablet extended release Discontinued 20 meq PO TWICE A DAY 180 4 October 15, 2023 9:42am August 10, 2024 4:57pm Start: 03-28-2020 End: 04-05-2020 take 2 tablets by mouth once daily Potassium Chloride 20 mEq tablet extended release Discontinued 20 meq PO .COMPLEX 30 3 March 28, 2020 5:45pm April 05, 2020 9:25am 20 mEq PO take 4 tablets 80mEq on day 1 and then take 2 tabs 40mEq daily; pravastatin sodium 40 mg oral tablet (13 sources) HMG-CoA Reductase Inhibitor Start: 03-03-2019 End: 03-14-2020 take 1 tablet by mouth at bedtime Pravastatin 40 MG tablet Discontinued 40 mg PO AT BEDTIME March 03, 2019 12:00am March 14, 2020 10:34am cholesterol Saw Atmore (13 sources) Start: 03-03-2019 End: 03-14-2020 take 320 mg by mouth once daily Saw [place]more Discontinued 320 MG PO DAILY March 03, 2019 9:05am March 14, 2020 10:34am Start: 03-03-2019 End: 03-14-2020 take 1 capsule by mouth once daily Saw [place]more 500 MG capsule Discontinued 320 mg PO DAILY March 03, 2019 12:00am March 14, 2020 10:34am SUPPLEMENT Start: 03-03-2019 End: 03-14-2020 take 1 capsule by mouth once daily Saw [place]more 500 MG capsule Discontinued 320 mg PO DAILY March 03, 2019 12:00am March 14, 2020 10:34am Start: 03-03-2019 End: 03-14-2020 take 320 mg by mouth once daily Saw [place] Discontin ued 320 MG PO DAILY March 02, 2019 11:00pm March 14, 2020 9:34am Start: 03-03-2019 End: 03-14-2020 take 320 mg by mouth once daily Saw [place]more Discontin ued 320 MG PO DAILY March 03, 2019 12:00am March 14, 2020 10:34am tamsulosin hydrochloride 0.4 mg oral capsule (13 sources) alpha-Adrenergic Yesenia Start: 03-03-2019 End: 03-14-2020 take 1 capsule by mouth at bedtime Tamsulosin 0.4 MG capsule Discontinued 0.4 mg PO AT BEDTIME March 03, 2019 12:00am March 14, 2020 10:34am PROSTATE Turmeric Root Extract (10 sources) Start: 03-14-2020 End: 07-25-2021 take 1000 mg by mouth once daily Turmeric Root Extract Discontinued 1000 MG PO DAILY March 14, 2020 10:33am July 25, 2021 9:47am Start: 03-14-2020 End: 07-25-2021 take 1000 mg by mouth once daily Turmeric Root Extract Discontinued 1000 MG PO DAILY March 13, 2020 11:00pm July 25, 2021 8:47am Start: 03-14-2020 End: 07-25-2021 take 1000 mg by mouth once daily Turmeric Root Extract Discontinued 1000 MG PO DAILY March 14, 2020 12:00am July 25, 2021 9:47am Turmeric Root Extract 1,053 mg tablet (3 sources) Start: 03-14-2020 End: 07-25-2021 take 1 tablet by mouth once daily Turmeric Root Extract 1,053 mg tablet Discontinued 1000 mg PO DAILY March 14, 2020 12:00am July 25, 2021 9:47am vitamin b12 0.5 mg oral tablet (13 sources) Vitamin B12 Start: 03-03-2019 End: 03-14-2020 Cyanocobalamin (Vitamin B-12) 500 MCG tablet Discontinued 1200 ug SL DAILY@0800 March 03, 2019 12:00am March 14, 2020 10:34am SUPPLEMENT Start: 03-03-2019 End: 03-14-2020 Cyanocobalamin (Vitamin B-12 ) Discontinued 1200 MCG SL DAILY@0800 March 02, 2019 11:00pm March 14, 2020 9:34am Problems Active Problems Problem Classification Problem Date Documented Date Episodic/Chronic Aortic; peripheral; and visceral artery aneurysms (6 sources) Abdominal aortic aneurysm; Translations: [Abdominal aortic aneurysm (AAA)] 03-02-2023 Chronic Cardiac and circulatory congenital anomalies (16 sources) Ventricular septal defect; Translations: [Ventricular septal defect] 01-02-2020 Chronic Cardiac dysrhythmias (16 sources) Ventricular premature beats; Translations: [Ventricular premature depolarization] 09-16-2020 Chronic Esophageal disorders (13 sources) Gastroesophageal reflux disease; Translations: [Gastro-esophageal reflux disease without esophagitis] 01-02-2020 Chronic Essential hypertension (20 sources) Essential hypertension; Translations: [Essential (primary) hypertension] Onset: 04-02-2025 01-02-2020 Chronic Fluid and electrolyte disorders (7 sources) Hypokalemia; Translations: [Hypokalemia] 01-20-2023 Episodic Genitourinary symptoms and ill-defined conditions (13 sources) Retention of urine; Translations: [Retention of urine, unspecified] 03-31-2019 Episodic Heart valve disorders (18 sources) Aortic stenosis, non-rheumatic ; Translations: [Nonrheumatic aortic (valve) stenosis] 09-16-2020 Chronic Malaise and fatigue (1 source) Other fatigue; Translations: [Other fatigue] Onset: 07-06-2025 Episodic Other eye disorders (9 sources) H/O: Bilateral cataract extraction; Translations: [Cataract extraction status, right eye] 10-09-2022 Episodic Other nutritional; endocrine; and metabolic disorders (1 source) Hypercalcemia; Translations: [Hypercalcemia] Onset: 10-16-2024 Chronic Other upper respiratory disease (7 sources) Acute bronchospasm; Translations: [Acute bronchospasm] 01-20-2023 Episodic Otitis media and related conditions (13 sources) Acute left otitis media; Translations: [Otitis media, unspecified, left ear] 07-19-2021 Episodic Pneumonia (except that caused by tuberculosis or sexually transmitted disease) (7 sources) Pneumonia; Translations: [Pneumonia, unspecified organism] 01-20-2023 Episodic Past or Other Problems Problem Classification Problem Date Documented Da te Episodic/Chronic Other upper respiratory infections (19 sources) Acute bacterial sinusitis; Translations: [Acute sinusitis, unspecified] Onset: 12-12-2024 Episodic Viral infection (4 sources) Acute viral disease; Translations: [Viral infection, unspecified] Onset: 12-07-2024 12-03-2024 Episodic Results Test Name Value Interpretation Reference Range Facility No Panel InformationOrdered By: Michael Villasenor on 07-06-2025 Influenza Types A,B Rapid (Clinic) Negative [facility] POC SARS CoV-2 Antigen Negative [facility] Urgent Care Visit Reporton 1 Urgent Care Visit Report [facility] [address], [address] [place] [address] OFFICE VISIT Date of Service: 07/06/25 MR#: [id number] Acct: [id number] Name: ALEXANDER PETIT Rep #: [id number] : 1940 Provider: CHRIS De Age/Sex: 85/M Location: [facility] Status: Signed Intake Vital Signs 01/22/25 08:58 07/06/25 11:26 Height 5 ft 9 in Weight: 242 lb BMI 35.7 BP 176/104 H 152/78 H Blood Pressure Location Lt brachial Lt brachial Position Sitting Sitting Respiration 18 16 Pulse 65 88 Pulse Source Monitor NIBP Temp 98.3 F Temp Source Oral Pulse Oximetry (%) 93 96 Oxygen Delivery Method room air Intake Visit Reasons: RUNNY NOSE, FATIGUE Chief Complaint: RN, throat, fatigue, BA Professional Athlete Required: No Is patient in pain?: No Allergies prednisone Adverse Reaction (Verified 07/06/25 11:27) ORAL THRUSH Have you fallen in the past year?: No Nurse's Note: RN, scratchy throat, fatigue, BA since last night. denies fever, MARIE, cough PFSH Medical History Premature ventricular contraction GERD (gastroesophageal reflux disease) BPH (benign prostatic hyperplasia) VSD (ventricular septal defect) Nonrheumatic aortic (valve) stenosis Essential hypertension Surgical History History of bilateral cataract extraction History of rotator cuff surgery S/P TURP (status post transurethral resection of prostate) History of left heart catheterization (LHC) ( 02/28/02) History of tonsillectomy and adenoidectomy History of transurethral resection of prostate Family History Father CAD (coronary artery disease) Hypertension Mother CVA (cerebral vascular accident) Social History Smoking Status: Former smoker alcohol intake: never substance use type: does not use caffeine: Yes Type: coffee Number of servings: 4 HPI HPI Chief Complaint: RN, throat, fatigue, BA Details: ALEXANDER PETIT, is a 85 M who presents to the office today for complaint of runny nose, sore throat, fatigue starting last night. Patient states that his sore throat is minimal along with his cough. He denies hemoptysis, shortness of breath or difficulty breathing. No nausea, vomiting or diarrhea. No loss of taste or smell. Patient states wanting to make sure he does not have COVID or influenza as he is going to a tomorrow. No other associated symptoms or alleviating/aggravat ing factors. ROS Const Constitutional: Positive for other (ROS negative x 6 except what is described above) Exam Const General: cooperative and well developed HENMT Head: normal to inspection and atraumatic Ears: hearing grossly normal bilaterally Nose: nasal discharge clear Face and sinus: normal facial exam Mouth: oral mucosae normal Throat: abnormal tonsil bilaterally hypertrophy 1+ Resp Effort Inspection: normal respiratory effort and no audible wheezes Auscultation: Bilateral: Clear to Auscultation Cardio Palpation: normal PMI Rate: regular rate Rhythm: regular rhythm Neuro General: patient alert and CN's II-XI intact bilaterally Psych Appearance: grossly normal Mental Status: mental status grossly normal Results POC SARS AG POC SARS AG Negative Last Edit by Anu Foster on 07/06/25 11:36 POC FLU A B Office Flu A B Negative FLU A B Last Edit by Anu Foster on 07/06/25 11:36 Coding Level of Care Code Off vis,new,level 3 Diagnoses Acute upper respiratory infection J06.9 Assessment and Plan Assessment and Plan (1) Acute upper respiratory infection: Status: Acute Plan: Patient tested negative for COVID and influenza in the office today. Encouraged to get plenty of rest, drink lots of clear liquids, and use Tylenol or Ibuprofen (unless contraindicated) for fever and comfort. Patient also educated on other symptomatic management techniques. To be seen in 7-10 days if no improvement; sooner if worsening of symptoms. Patient advised of potential red flags and when appropriate to report to the ED. Patient verbalized understanding and agreement with all the above. Orders: Orders POC FLU A B Today R53.83 - Other fatigue POC Rapid SARS Antigen Today Medications: New benzonatate 200 mg (2 x 100 mg) PO TID PRN 30 caps 0RF cough ipratropium bromide administer into each nostril 2 sprays intranasal BID-TID PRN 30 mL 0RF postnasal drainage Clinical Quality Measures Falls Risk Screening/Assistive Devices Have you fallen in the past year?: No 07/06/25 1542 Date Michael PEREZ (more content not included)... Normal [facility] Anion gap in Serum or Plasma Ordered By: hTomas Bernard on 03-27-2025 Anion gap [Moles/Vol] 12 mmol/L 5- [facility] BUN/creatinine ratioOrdered By: Thomas Bernard on 03-27-2025 Urea nitrogen/Creatinine [Mass ratio] 16.7 mg/mg 10- [facility] Bilirubin, totalOrdered By: Thomas Bernard on 03-27-2025 Bilirubin [Mass/Vol] 0.46 mg/dL Normal 0.00-1.30 [facility] Comment on above: Order Comment: Order Date: 03/27/25Order Info: [id number] - CMPOrder Info: [id number] - LIPIDPHLEB FORGOT TO ORDER UA (INVALID CODE) CALLED PT AND LEFTMESSAGE TO RETURN. Performed By: #### L 501.9985, L500.4050, L500.4100 ####[facility] [id number] [place], [place], [id number] Calculated very low density lipoprotein (VLDL) cholesterol measurementOrdered By: Thomas Bernard on 03-27-2025 Calculated very low density lipoprotein (VLDL) cholesterol measurement 31 mg/dL 5-40 [facility] Carbon dioxide, total [Moles /volume] in Central venous bloodOrdered By: Thomas Bernard on 03-27-2025 CO2 [Moles/Vol] 23.4 mmol/L Normal 21.0-32.0 [facility] Comment on above: Order Comment: Order Date: 03/27/25Order Info: [id number] - CMPOrder Info: [id number] - LIPIDPHLEB FORGOT TO ORDER UA (INVALID CODE) CALLED PT AND LEFTMESSAGE TO RETURN. Performed By: #### L 501.9985, L500.4050, L500.4100 ####[facility] [address] [place], [address] Chloride assayOrdered By: Constantino Bernard on 03-27-2025 Chloride [Moles/Vol] 104 mmol/L Normal 98-108 [facility] Comment on above: Order Comment: Order Date: 03/27/25Order Info: 07 - CMPOrder Info: [id number] - LIPIDPHLEB FORGOT TO ORDER UA (INVALID CODE) CALLED PT AND LEFTMESSAGE TO RETURN. Performed By: #### L 501.9985, L500.4050, L500.4100 ####[facility] [address] [place], [place], [address] Comprehensive Metabolic Prof ilon 03-27-2025 ALK PHOS 49 U/L Normal 40-129 [facility] Comment on above: Order Comment: Order Date: 03/27/25Order Info: [id number]- - CMPOrder Info: [id number] - LIPIDPHLEB FORGOT TO ORDER UA (INVALID CODE) CALLED PT AND LEFTMESSAGE TO RETURN. Performed By: #### L 501.9985, L500.4050, L500.4100 ####[facility] [address] [place], [place], [address] BUN/CRE 16.7 RATIO Normal 10-20 [facility] Comment on above: Order Comment: Order Date: 03/27/25Order Info: 0786- - CMPOrder Info: [id number] - LIPIDPHLEB FORGOT TO ORDER UA (INVALID CODE) CALLED PT AND LEFTMESSAGE TO RETURN. Performed By: #### L 501.9985, L500.4050, L500.4100 ####[facility] [address] [place], [place], [address] GAP 12 Normal 5-15 [facility] Comment on above: Order Comment: Order Date: 03/27/25Order Info: [id number] - CMPOrder Info: [id number] - LIPIDPHLEB FORGOT TO ORDER UA (INVALID CODE) CALLED PT AND LEFTMESSAGE TO RETURN. Performed By: #### L 501.9985, L500.4050, L500.4100 ####[facility] [address] [place], [address] Potassium [Moles/Vol] 4.1 mmol/L Normal 3.3-5.1 [facility] Comment on above: Order Comment: Order Date: 03/27/25Order Info: 07- - CMPOrder Info: [id number] - LIPIDPHLEB FORGOT TO ORDER UA (INVALID CODE) CALLED PT AND LEFTMESSAGE TO RETURN. Performed By: #### L 501.9985, L500.4050, L500.4100 ####[facility] [address] [place], [place], [address] T PROT 7.5 g/dL Normal 5.9-8.4 [facility] Comment on above: Order Comment: Order Date: 03/27/25Order Info: [id number] - CMPOrder Info: [id number] - LIPIDPHLEB FORGOT TO ORDER UA (INVALID CODE) CALLED PT AND LEFTMESSAGE TO RETURN. Performed By: #### L 501.9985, L500.4050, L500.4100 ####[facility] [address] [place], [place], [address] Comprehensive Metabolic Prof ilOrdered By: Thomas Bernard on 03-27-2025 AST [Catalytic activity/Vol] 33 U/L Normal <=37 [facility] Comment on above: Order Comment: Order Date: 03/27/25Order Info: [id number] - CMPOrder Info: [id number] - LIPIDPHLEB FORGOT TO ORDER UA (INVALID CODE) CALLED PT AND LEFTMESSAGE TO RETURN. Performed By: #### L 501.9985, L500.4050, L500.4100 ####[facility] [address] [place], [address] Glomerular filtration rate ( GFR) estimation/1.73 sq m using serum, plasma, or whole bOrdered By: Thomas Bernard on 03-27-2025 GFR/1.73 sq M.predicted among non-blacks MDRD (S/P/Bld) [Vol rate/Area] 86 mL/min/{1.73_m2} Normal >60 [facility] Comment on above: mL/min/1.73m2 CKD-EP I Creatinine Equation (2020) Order Comment: Order Date: 03/27/25Order Info: [id number] - CMPOrder Info: [id number] - LIPIDPHLEB FORGOT TO ORDER UA (INVALID CODE) CALLED PT AND LEFTMESSAGE TO RETURN. Result Comment: mL/m in/1.73m2 CKD-EPI Creatinine Equation (2020) Performed By: #### L 501.9985, L500.4050, L500.4100 ####[facility] [address] [place], [address] Hemoglobin A1c percentageOrd ered By: Thomas Bernard on 03-27-2025 HbA1c (Bld) [Mass fraction] 6.1 % High <=5.6 [facility] Comment on above: Normal < 5.7 % Predi abetic 5.7 - 6.4 % Diabetic >or= 6.5 % Please note range changes. Order Comment: Order Date: 03/27/25Order Info: [id number] - A1C Result Comment: Norm al < 5.7 % Prediabetic 5.7 - 6.4 % Diabetic >or= 6.5 % Please note range changes. Performed By: #### L 501.9985, L500.4050, L500.4100 ####[facility] [address] [place], [place], [address] LDL calc ser/plasOrdered By: Thomas Bernard on 03-27-2025 Cholesterol in LDL [Mass/Vol] 98 mg/dL Normal [facility] Comment on above: Lqnzxnhabh=618-813 m g/dL & Higher Oemj=269 mg/dL or greater Order Comment: Order Date: 03/27/25Order Info: [id number] - CMPOrder Info: [id number] - LIPIDPHLEB FORGOT TO ORDER UA (INVALID CODE) CALLED PT AND LEFTMESSAGE TO RETURN. Result Comment: Bord nxmeny=136-784 mg/dL Higher Vdls=430 mg/dL or greater Performed By: #### L 501.9985, L500.4050, L500.4100 ####[facility] [address] [place], [address] Lipid Profileon 03-27-2025 CHOL:HDL 4.36 Normal [facility] Comment on above: Order Comment: Order Date: 03/27/25Order Info: [id number] - CMPOrder Info: [id number] - LIPIDPHLEB FORGOT TO ORDER UA (INVALID CODE) CALLED PT AND LEFTMESSAGE TO RETURN. Performed By: #### L 501.9985, L500.4050, L500.4100 ####[facility] [address] [place], [address] Cholesterol in VLDL [Mass/Vol] 31 mg/dL Normal 5-40 [facility] Comment on above: Order Comment: Order Date: 03/27/25Order Info: [id number] - CMPOrder Info: [id number] - LIPIDPHLEB FORGOT TO ORDER UA (INVALID CODE) CALLED PT AND LEFTMESSAGE TO RETURN. Performed By: #### L 501.9985, L500.4050, L500.4100 ####[facility] [address] [place], [address] Microalb:Creat Ratio,Random URon 03-27-2025 Creatinine [Mass/Vol] 189.00 mg/dL Normal 39.00-259.00 [facility] Comment on above: Performed By: #### L 506.1001, L502.0250 ####[facility] [address] [place], [address] MALB:CREAT UNABLE TO CALCULATE Normal [facility] Comment on above: Performed By: #### L 506.1001, L502.0250 ####[facility] [address] [place], [address] MICROALBUMIN,UR < 12.0 Normal NO RANGE EST. [facility] Comment on above: Performed By: #### L 506.1001, L502.0250 ####[facility] [address] [place], [address] Microalbumin/creat ratio urO rdered By: Thomas Bernard on 03-27-2025 Urine microalbumin/creatinine ratio measurement UNABLE TO CALCULATE mg/g CRE [facility] Potassium measurement (mass/ volume)Ordered By: Thomas Bernard on 03-27-2025 Potassium (Unsp spec) [Mass/Vol] 4.1 mmol/L 3.3-5.1 [facility] Random urine creatinine fredy urement (mass/volume)Ordered By: Thomas Bernard on 03-27-2025 Creatinine Unsp time (U) [Mass/Vol] 189.00 mg/dL 39.00-259.00 [facility] Screening total cholesterol/ high density lipoprotein (HDL) cholesterol ratioOrdered By: Thomas Bernard on 03-27-2025 Cholesterol.total/Cholest amber in HDL [Mass ratio] 4.36 {ratio} [facility] Serum creatinine measurement (mass/volume)Ordered By: Thomas Bernard on 03-27-2025 Creatinine [Mass/Vol] 0.85 mg/dL Normal 0.70-1.20 [facility] Comment on above: Order Comment: Order Date: 03/27/25Order Info: [id number] - CMPOrder Info: [id number] - LIPIDPHLEB FORGOT TO ORDER UA (INVALID CODE) CALLED PT AND LEFTMESSAGE TO RETURN. Performed By: #### L 501.9985, L500.4050, L500.4100 ####[facility] [address] [place], [address] Serum globulin measurementOr dered By: Thomas Bernard on 03-27-2025 Globulin (S) [Mass/Vol] 3.4 g/dL Normal 2.2-4.2 [facility] Comment on above: Order Comment: Order Date: 03/27/25Order Info: [id number] - CMPOrder Info: [id number] - LIPIDPHLEB FORGOT TO ORDER UA (INVALID CODE) CALLED PT AND LEFTMESSAGE TO RETURN. Performed By: #### L 501.9985, L500.4050, L500.4100 ####[facility] [address] [place], [address] Serum glucose measurement (m ass/volume)Ordered By: Thomas Bernard on 03-27-2025 Glucose [Mass/Vol] 113 mg/dL High 70-99 [facility] Comment on above: Order Comment: Order Date: 03/27/25Order Info: [id number]- - CMPOrder Info: [id number] - LIPIDPHLEB FORGOT TO ORDER UA (INVALID CODE) CALLED PT AND LEFTMESSAGE TO RETURN. Performed By: #### L 501.9985, L500.4050, L500.4100 ####[facility] [address] [place], [address] Serum or plasma alanine wyman otransferase (ALT) measurementOrdered By: Thomas Bernard on 03-27-2025 ALT [Catalytic activity/Vol] 33 U/L Normal <=46 [facility] Comment on above: Order Comment: Order Date: 03/27/25Order Info: [id number] - CMPOrder Info: [id number] - LIPIDPHLEB FORGOT TO ORDER UA (INVALID CODE) CALLED PT AND LEFTMESSAGE TO RETURN. Performed By: #### L 501.9985, L500.4050, L500.4100 ####[facility] [address] [place], [address] Serum or plasma albumin fredy urement (mass/volume)Ordered By: Thomas Bernard on 03-27-2025 Albumin [Mass/Vol] 4.1 g/dL Normal 3.4-4.8 [facility] Comment on above: Order Comment: Order Date: 03/27/25Order Info: [id number] - CMPOrder Info: [id number] - LIPIDPHLEB FORGOT TO ORDER UA (INVALID CODE) CALLED PT AND LEFTMESSAGE TO RETURN. Performed By: #### L 501.9985, L500.4050, L500.4100 ####[facility] [address] [place], [address] Serum or plasma albumin/glob ulin mass ratioOrdered By: Thomas Bernard on 03-27-2025 Albumin/Globulin [Mass ratio] 1.2 {ratio} Normal 0.9-2.4 [facility] Comment on above: Order Comment: Order Date: 03/27/25Order Info: [id number] - CMPOrder Info: [id number] - LIPIDPHLEB FORGOT TO ORDER UA (INVALID CODE) CALLED PT AND LEFTMESSAGE TO RETURN. Performed By: #### L 501.9985, L500.4050, L500.4100 ####[facility] [address] [place], [place], [address] Serum or plasma alkaline airam sphatase measurementOrdered By: Thomas Bernard on 03-27-2025 ALP [Catalytic activity/Vol] 49 U/L 40-129 [facility] Serum or plasma calcium fredy urement (mass/volume)Ordered By: Thomas Bernard on 03-27-2025 Calcium [Mass/Vol] 9.9 mg/dL Normal 7.6-11.0 [facility] Comment on above: Order Comment: Order Date: 03/27/25Order Info: [id number] - CMPOrder Info: [id number] - LIPIDPHLEB FORGOT TO ORDER UA (INVALID CODE) CALLED PT AND LEFTMESSAGE TO RETURN. Performed By: #### L 501.9985, L500.4050, L500.4100 ####[facility] [address] [place], [address] Serum or plasma cholesterol in HDL measurement (mass/volume)Ordered By: Thomas Bernard on 03-27-2025 Cholesterol in HDL [Mass/Vol] 38 mg/dL Low [facility] Comment on above: National Cholesterol Education Program (NCEP) guidelines:<40 mg/dL: Low HDL-cholesterol (major risk factor for CHD)>= 60 mg/dL: High HDL-cholesterol (negative risk factor for CHD)HDL-cholesterol is affected by a number of factors, e.g. smoking, exercise, hormones, sex and age. Order Comment: Order Date: 03/27/25Order Info: [id number] - CMPOrder Info: [id number] - LIPIDPHLEB FORGOT TO ORDER UA (INVALID CODE) CALLED PT AND LEFTMESSAGE TO RETURN. Result Comment: Inessa onal Cholesterol Education Program (NCEP) guidelines: <40 mg/dL: Low HDL-cholesterol (major risk factor for CHD) >= 60 mg/dL: High HDL-cholesterol (negative risk factor for CHD) HDL-cholesterol is affected by a number of factors, e.g. smoking, exercise, hormones, sex and age. Performed By: #### L 501.9985, L500.4050, L500.4100 ####[facility] [address] [place], [address] Serum or plasma cholesterol measurement (mass/volume)Ordered By: Thomas Bernard on 03-27-2025 Cholesterol [Mass/Vol] 167 mg/dL Normal <=200 [facility] Comment on above: Cholesterol level, D esirable <200 mg/dLBorderline high cholesterol 200-239 mg/dLHigh cholesterol >=240 mg/dLRecommendations of the NCEP Adult Treatment Panel for the following risk-cutoff thresholds for the [place] population. Order Comment: Order Date: 03/27/25Order Info: [id number] - CMPOrder Info: [id number] - LIPIDPHLEB FORGOT TO ORDER UA (INVALID CODE) CALLED PT AND LEFTMESSAGE TO RETURN. Result Comment: Chol esterol level, Desirable <200 mg/dL Borderline high cholesterol 200-239 mg/dL High cholesterol >=240 mg/dL Recommendations of the NCEP Adult Treatment Panel for the following risk-cutoff thresholds for the [place] population. Performed By: #### L 501.9985, L500.4050, L500.4100 ####[facility] [address] [place], [place], [address] Serum or plasma urea nitroge n measurement (mass/volume)Ordered By: Thomas Bernard on 03-27-2025 Urea nitrogen [Mass/Vol] 14 mg/dL Normal 4-19 [facility] Comment on above: Order Comment: Order Date: 03/27/25Order Info: [id number] - CMPOrder Info: [id number] - LIPIDPHLEB FORGOT TO ORDER UA (INVALID CODE) CALLED PT AND LEFTMESSAGE TO RETURN. Performed By: #### L 501.9985, L500.4050, L500.4100 ####[facility] [address] [place], [place], [address] Sodium levelOrdered By: Thomas Bernard on 03-27-2025 Sodium [Moles/Vol] 139 mmol/L Normal 133-145 [facility] Comment on above: Order Comment: Order Date: 03/27/25Order Info: [id number] - CMPOrder Info: [id number] - LIPIDPHLEB FORGOT TO ORDER UA (INVALID CODE) CALLED PT AND LEFTMESSAGE TO RETURN. Performed By: #### L 501.9985, L500.4050, L500.4100 ####[facility] [address] [place], [place], [address] Total proteinOrdered By: Juju Bernard on 03-27-2025 Protein [Mass/Vol] 7.5 g/dL 5.9-8.4 [facility] Triglycerides measurementOrd ered By: Thomas Bernard on 03-27-2025 Triglyceride [Mass/Vol] 154 mg/dL Normal [facility] Comment on above: The drugs N-Acetylcy steine and Metamizole may falsely depress this assay. Normal range: <150 mg/dLBorderline High: 150-199 mg/dLHigh: 200-499 mg/dLVery High: >500 mg/dL Order Comment: Order Date: 03/27/25Order Info: [id number] - CMPOrder Info: [id number] - LIPIDPHLEB FORGOT TO ORDER UA (INVALID CODE) CALLED PT AND LEFTMESSAGE TO RETURN. Result Comment: The drugs N-Acetylcysteine and Metamizole may falsely depress this assay. Normal range: <150 mg/dL Borderline High: 150-199 mg/dL High: 200-499 mg/dL Very High: >500 mg/dL Performed By: #### L 501.9985, L500.4050, L500.4100 ####[facility] [address] [place], [place], [address] Urine albumin measurement [facility] detection limit of 20 mg/L or less (mass/volume)Ordered By: Thomas Bernard on 03-27-2025 Albumin DL <= 20 mg/L (U) [Mass/Vol] < 12.0 mg/L NO RANGE EST. [facility] Vitamin D,25 Hydroxyon 03-27 Vitamin D 25-OH 53.5 ng/mL Normal 30-100 [facility] Comment on above: Order Comment: Order Date: 03/27/25Order Info: [id number] - CMPOrder Info: [id number] - LIPIDPHLEB FORGOT TO ORDER UA (INVALID CODE) CALLED PT AND LEFTMESSAGE TO RETURN. Result Comment: Ekta min D Status Deficiency: <20 ng/mL (50nmol/L) Insufficiency: 20-30 ng/mL (50-75 nmol/L) Sufficiency: 30-100 ng/mL (75-250 nmol/L) Toxicity: >100 ng/mL (>250 nmol/L) Performed By: #### L 506.1001, L502.0250 ####[facility] [address] [place], [place], [address] Cardiology Visit Reporton Cardiology Visit Report [facility] [address] [place], [place] [address] OFFICE VISIT Date of Service: 01/22/25 MR#: [id number] Acct: [id number] Name: MARISABELALEXANDER Tammy Rep #: [id number] : 1940 Provider: EVIN magdaleno Age/Sex: 84/M Location: [facility] Status: Signed HPI HPI History of Present Illness Details: Alexander Petit is an 84-year-old white male who presents today for outpatient cardiovascular follow-up visit. He has a history of aortic stenosis (mild), perimembranous VSD (small), cardiac ectopy with PVCs, and hypertension. From a cardiac standpoint, the patient is doing well. He denies any palpitations, chest pain, pressure or heaviness. He denies SOB, Orthopnea, and PND. He does not have bleeding issues; no blood in urine, stool, or nosebleeds. He denies any decrease in energy level, myalgias, or claudication. He does not have edema, or sudden weight gain. He denies lightheadedness, dizziness, syncopal or near syncopal episodes, and headaches. He states his blood pressures at home average 140/80's. Intake Vital Signs 07/24/24 10:06 01/22/25 08:58 01/22/25 11:28 Height 5 ft 9 in 5 ft 9 in Weight: 242 lb BMI 35.7 BP 176/104 H 152/88 H Blood Pressure Location Lt brachial Lt brachial Position Sitting Sitting Respiration 18 Pulse 65 Pulse Source Monitor Pulse Oximetry (%) 93 Intake Visit Reasons: 6 M FU Professional Athlete Required: No Is patient in pain?: No Allergies prednisone Adverse Reaction (Verified 01/22/25 11:21) ORAL THRUSH Medications ???Medication ???Instructions ???Recorded ???Confirmed ???Type multivitamin with folic acid 400 1 tab PO DAILY vitamin 11/02/14 History mcg tablet cholecalciferol (vitamin D3) 50 50 mcg PO DAILY 03/14/20 01/22/25 History mcg (2,000 unit) capsule glucosamine-chondroi tin 250 mg-200 2 tab PO DAILY 03/14/20 01/22/25 History mg tablet (Osteo Bi-Flex) biotin 10,000 mcg capsule 5,000 mcg PO DAILY SUPPLEMENT 12/1601/22/25 History carvedilol 12.5 mg tablet 12.5 mg PO BID #180 tabs 08/10/24 01/22/25 Rx spironolactone 25 mg tablet 25 mg PO QDAY #90 tabs 08/15/24 Rx amlodipine 10 mg tablet 10 mg PO DAILY #90 tabs 09/15/24 0 01/22/25 Rx valsartan 320 mg tablet 320 mg PO DAILY #90 tabs 09/15/24 01/22/25 Rx ondansetron 8 mg disintegrating 8 mg PO Q8H PRN nausea and 5 01/22/25 Rx tablet vomiting #15 tabs magnesium oxide 400 mg PO BID 01/22/25 01/22/25 Hi story Ejection fraction %: 65 Have you fallen in the past year?: No Nurse's Note: no medication list, unable to confirm, patient does not know names of medictions [facility] Medical History Premature ventricular contraction GERD (gastroesophageal reflux disease) BPH (benign prostatic hyperplasia) VSD (ventricular septal defect) Nonrheumatic aortic (valve) stenosis Essential hypertension Surgical History History of bilateral cataract extraction History of rotator cuff surgery S/P TURP (status post transurethral resection of prostate) History of left heart catheterization (LHC) ( 02/28/02) History of tonsillectomy and adenoidectomy History of transurethral resection of prostate Family History Father CAD (coronary artery disease) Hypertension Mother CVA (cerebral vascular accident) Social History Smoking Status: Former smoker alcohol intake: never substance use type: does not use caffeine: Yes Type: coffee Number of servings: 4 ROS Const Const: Negative for fatigue, weakness, headache(s) or frequent falls Eyes Eyes: Negative for blurry vision ENT ENT: Negative for headache(s), dizziness or Nosebleed/epistaxis Cardio Chest Pain: No Palpitations: No Edema: None Muscle aches with walking: None Resp Respiratory: Negative for SOB with activity, SOB at rest or SOB orthopnea SOB lying down GI GI: Negative nausea, vomiting, heartburn, bright, red blood in stools or black,tarry stools : Negative for hematuria Neuro Neuro: Negative for dizziness, lightheadedness, near syncope, syncope, frequent falls, headache(s), weakness or blurry vision Endo Endo: Negative for fatigue Cardiology Exam Const Appearance: cooperative, healthy appearing, comfortable, no acute distress, well developed and well groomed Nutritional Appearance: obese Orientation: alert, awake and oriented x3 Head Head: normal to inspection, normocephalic and atraumatic Nose: external nose normal Face and Sinus: face symmetric Mouth: oral mucosae normal Eyes Eyelids: eyelids normal (more content not included)... Normal [facility] Chest PA and Lateralon 11-30 Chest PA and Lateral [facility] Imaging Services [address] [place], [place] [id number] Chest PA and Lateral MR#: [id number] Acct: [id number] Name: ALEXANDER PETIT Rep #: [id number] : 1940 M 84 From: Cristiano khan MD PCP: Dr. Thomas Bernard MD Status: REG CLI Study: Chest PA and Lateral Date of Exam: 11/30/24 Exam# [id number] Ordering Dr: Sakshi Tejeda NP [facility] PROCEDURE: CHEST PA AND LATERAL REASON FOR EXAM: Chest congestion. TECHNIQUE: Frontal and lateral views of the chest. COMPARISON: Comparison is made with prior study dated November 25, 2024. FINDINGS: The heart is not enlarged. Hyperinflation. No acute abnormality is seen. Degenerative changes of the dorsal spine as well as the right shoulder. Tortuosity of the descending thoracic aorta. RAD/Chest PA and Lateral IMPRESSION: Hyperinflation. No acute abnormality is seen. Reading Location: [id number] CC: Sakshi LEVINE [facility] Nikhil; Dr. Thomas Bernard MD Tomato Paste Maker: Signed Normal [facility] Absolute neutrophil countOrd ered By: Viral Miller on 11-25-2024 Neutrophils (Bld) [#/Vol] 8.7 10*3/uL High 2.0-7.7 [facility] BUN/creatinine ratioOrdered By: Viral Miller on 11-25-2024 Urea nitrogen/Creatinine [Mass ratio] 18.2 mg/mg 10-20 [facility] Basic Metabolic Profile (BMP )on 11-25-2024 Anion gap [Moles/Vol] 15 mmol/L Normal 5-15 [facility] Comment on above: Performed By: #### L 500.2500, L100.0100 #### [facility] [address] [place], [address] BUN/CRE 18.2 RATIO Normal 10-20 [facility] Comment on above: Performed By: #### L 500.2500, L100.0100 #### [facility] [address] [place], [address] Calcium [Mass/Vol] 11.1 mg/dL High 7.6-11.0 [facility] Comment on above: Performed By: #### L 500.2500, L100.0100 #### [facility] [address] [place], [address] Chloride [Moles/Vol] 98 mmol/L Normal 96-108 [facility] Comment on above: Performed By: #### L 500.2500, L100.0100 #### [facility] [address] [place], [address] CO2 [Moles/Vol] 22.0 mmol/L Normal 22.0-29.0 [facility] Comment on above: Performed By: #### L 500.2500, L100.0100 #### [facility] [address] [place], [address] Creatinine [Mass/Vol] 0.92 mg/dL Normal 0.70-1.20 [facility] Comment on above: Performed By: #### L 500.2500, L100.0100 #### [facility] [address] [place], [address] ECRCL 74.13 ml/min Normal [facility] Comment on above: Performed By: #### L 500.2500, L100.0100 #### [facility] [address] [place], [address] GFR/1.73 sq M.predicted among non-blacks MDRD (S/P/Bld) [Vol rate/Area] 83 mL/min/{1.73_m2} Normal >60 [facility] Comment on above: Result Comment: mL/m in/1.73m2 CKD-EPI Creatinine Equation (2020) Performed By: #### L 500.2500, L100.0100 #### [facility] [facility] [address] [place], [address] Glucose [Mass/Vol] 142 mg/dL High 70-99 [facility] Comment on above: Performed By: #### L 500.2500, L100.0100 #### [facility] [address] [place], [address] Potassium [Moles/Vol] 3.7 mmol/L Normal 3.3-5.1 [facility] Comment on above: Performed By: #### L 500.2500, L100.0100 #### [facility] [address] [place], [address] Sodium [Moles/Vol] 134 mmol/L Normal 133-145 [facility] Comment on above: Performed By: #### L 500.2500, L100.0100 #### [facility] [address] [place], [address] Urea nitrogen [Mass/Vol] 17 mg/dL Normal 4-19 [facility] Comment on above: Performed By: #### L 500.2500, L100.0100 #### [facility] [address] [place], [address] Basophil percentageOrdered B y: Viraldana Miller on 11-25-2024 Basophils/100 WBC (Bld) 0.3 % 0-1 [facility] CBC W/Diff, Automatedon 03- Absolute Lymph 1.35 X10 3/uL Normal 0.83-4.51 [facility] Comment on above: Performed By: #### L 500.2500, L100.0100 #### [facility] [address] [place], [address] Absolute Neut 8.7 X10 3/uL High 2.0-7.7 [facility] Comment on above: Performed By: #### L 500.2500, L100.0100 #### [facility] [address] [place], [address] Basophils/100 WBC (Bld) 0.3 % Normal 0-1 [facility] Comment on above: Performed By: #### L 500.2500, L100.0100 #### [facility] [address] [place], [address] Eosinophils/100 WBC (Bld) 0.0 % Normal 0-5 [facility] Comment on above: Performed By: #### L 500.2500, L100.0100 #### [facility] [address] [place], [address] Erythrocyte distribution width (RBC) [Ratio] 14.6 % Normal 11.6-14.6 [facility] Comment on above: Performed By: #### L 500.2500, L100.0100 #### [facility] [address] [place], [address] Hematocrit (Bld) [Volume fraction] 42.9 % Normal 40-54 [facility] Comment on above: Performed By: #### L 500.2500, L100.0100 #### [facility] [address] [place], [address] Hemoglobin (Bld) [Mass/Vol] 14.7 g/dL Normal 13.0-16.5 [facility] Comment on above: Performed By: #### L 500.2500, L100.0100 #### [facility] [address] [place], [address] IG% 0.300 Normal 0.0-0.9 [facility] Comment on above: Result Comment: IG% - Immature Granulocytes (promyelocytes, myelocytes and metamyelocytes) > 1% indicates that a LEFT SHIFT is Present. Performed By: #### L 500.2500, L100.0100 #### [facility] [address] [place], [address] Lymphocytes/100 WBC (Bld) 12.5 % Low 19-41 [facility] Comment on above: Performed By: #### L 500.2500, L100.0100 #### [facility] [address] [place], [address] MCH (RBC) [Entitic mass] 28.4 pg Normal 27.0-32.0 [facility] Comment on above: Performed By: #### L 500.2500, L100.0100 #### [facility] [address] [place], [address] MCHC (RBC) [Mass/Vol] 34.3 g/dL Normal 32-36 [facility] Comment on above: Performed By: #### L 500.2500, L100.0100 #### [facility] [address] [place], [address] MCV (RBC) [Entitic vol] 82.8 fL Normal 80-94 [facility] Comment on above: Performed By: #### L 500.2500, L100.0100 #### [facility] [address] [place], [address] Monocytes/100 WBC (Bld) 6.6 % Normal 0-10 [facility] Comment on above: Performed By: #### L 500.2500, L100.0100 #### [facility] [address] [place], [address] Neutrophils/100 WBC (Bld) 80.3 % High 47-70 [facility] Comment on above: Performed By: #### L 500.2500, L100.0100 #### [facility] [address] [place], [address] Nucleated RBC (Bld) [#/Vol] 0 10*3/uL Normal 0-5 [facility] Comment on above: Performed By: #### L 500.2500, L100.0100 #### [facility] [address] [place], [address] Platelet mean volume (Bld) [Entitic vol] 9.2 fL Normal 6.2-12.0 [facility] Comment on above: Performed By: #### L 500.2500, L100.0100 #### [facility] [address] [place], [address] Platelets (Bld) [#/Vol] 230 10*3/uL Normal 150-450 [facility] Comment on above: Performed By: #### L 500.2500, L100.0100 #### [facility] [address] [place], [address] RBC (Bld) [#/Vol] 5.18 10*6/uL Normal 4.6-6.2 [facility] Comment on above: Performed By: #### L 500.2500, L100.0100 #### [facility] [address] [place], [address] RDW SD 44.0 fl High 35.1-43.9 [facility] Comment on above: Performed By: #### L 500.2500, L100.0100 #### [facility] [address] [place], [address] WBC (Bld) [#/Vol] 10.8 10*3/uL Normal 4.4-11.0 [facility] Comment on above: Performed By: #### L 500.2500, L100.0100 #### [facility] [address] [place], [address] Carbon dioxide measurementOr dered By: Viral Miller on 11-25-2024 CO2 [Moles/Vol] 22.0 mmol/L 22.0-29.0 [facility] Chest PA and Lateralon 11-25 Chest PA and Lateral [facility] Imaging Services [address] [place] [address] Chest PA and Lateral MR#: [id number] Acct: [id number] Name: ALEXANDER PETIT Rep #: [id number] : 1940 M 84 From: Hermelindo Hernandez MD PCP: Dr. Thomas Bernard MD Status: REG ER Study: Chest PA and Lateral Date of Exam: 11/25/24 Exam# [id number] Ordering Dr: Viral Miller MD PROCEDURE: CHEST PA AND LATERAL REASON FOR EXAM: Cough TECHNIQUE: PA and lateral views of the chest. COMPARISON: 01/12/2023 FINDINGS: The lungs appear clear. No pleural effusion. The cardiac and mediastinal contours appear within limits. Ectatic appearing thoracic aorta. Mid to lower thoracic osteophyte formation. RAD/Chest PA and Lateral IMPRESSION: No evidence of acute disease. Reading Location: [facility] CC: Dr. Viral Miller MD; Dr. Thomas Bernard MD Tomato Paste Maker: Signed Normal [facility] Chloride measurementOrdered By: Viral Miller on 11-25-2024 Chloride [Moles/Vol] 98 mmol/L 96-108 [facility] Emergency Department Summary on 11-25-2024 Emergency Department Summary [facility] Medical Records Department [address] [place] [address] Emergency Department Summary 11/25/24 MR#: [id number] Acct: [id number] Name: ALEXANDER PETIT Rep #: [id number] : 1940 84 From: Viral Miller MD PCP: Dr. Thomas Bernard MD Status:REG ER Location: ED HPI HPI - GI History of Present Illness Chief Complaint: Nausea/Vomiting Informant: patient and spouse/S.O. Narrative Narrative: 84-year-old male presents with 2-3 days of cough and chest congestion without dyspnea or chest pain, malaise, some chills, headaches and bodyaches, and vomiting. He gets nauseated after meals. Denies any abdominal pain. No diarrhea, he had a bowel movement yesterday and another 1 this morning that were fairly normal. He has had no blood or melena in stools, no hematemesis. states she has had a cold lately and there have been [facility] of people at [facility] who have been out due to illness." [facility] Medical History Premature ventricular contraction GERD (gastroesophageal reflux disease) BPH (benign prostatic hyperplasia) VSD (ventricular septal defect) Nonrheumatic aortic (valve) stenosis Essential hypertension Home Medications ???Medication ???Instructions ???Recorded ???Last Taken ???Type multivitamin with folic acid 400 1 tab PO DAILY vitamin 11/02/14 Un known History mcg tablet cholecalciferol (vitamin D3) 50 50 mcg PO DAILY 03/14/20 Unknown H istory mcg (2,000 unit) capsule glucosamine-chondroi tin 250 mg-200 2 tab PO DAILY 03/14/20 Unknown History mg tablet (Osteo Bi-Flex) biotin 10,000 mcg capsule 5,000 mcg PO DAILY SUPPLEMENT 12/16 Unknown History carvedilol 12.5 mg tablet 12.5 mg PO BID #180 tabs 08/10/24 Unknown Rx spironolactone 25 mg tablet 25 mg PO QDAY #90 tabs 08/15/24 Un known Rx amlodipine 10 mg tablet 10 mg PO DAILY #90 tabs 09/15/24 U nknown Rx valsartan 320 mg tablet 320 mg PO DAILY #90 tabs 09/15/24 Unknown Rx ondansetron 8 mg disintegrating 8 mg PO Q8H PRN nausea and 5 Unknown Rx tablet vomiting #15 tabs Allergy/AdvReac Type Severity Reaction Status Date / Time prednisone AdvReac ORAL THRUSH Verified 11/25/24 05:01 Family History Father CAD (coronary artery disease) Hypertension Mother CVA (cerebral vascular accident) Surgical History History of bilateral cataract extraction History of rotator cuff surgery S/P TURP (status post transurethral resection of prostate) History of left heart catheterization (LHC) ( 02/28/02) History of tonsillectomy and adenoidectomy History of transurethral resection of prostate Social History Smoking Status: Former smoker alcohol intake: never substance use type: does not use caffeine: Yes Type: coffee Number of servings: 4 ROS ROS ED Constitutional Constitutional ED: Reports body ache(s), chills, fatigue, headache(s) and malaise; Denies fever(s) Eyes Eyes: Denies change in vision or diplopia ENT ENT ED: Denies rhinorrhea or sore throat Cardiovascular Cardiovascular: Denies chest pain or palpitations Respiratory/Chest Respiratory/Chest: Reports cough and sputum; Denies dyspnea or dyspnea on exertion Gastrointestinal Gastrointestinal: Reports diarrhea, nausea and vomiting; Denies abdominal pain or melena Genitourinary Genitourinary ED: Denies dysuria or hematuria Musculoskeletal Musculoskeletal: Denies back pain or neck pain Integumentary Denies abscess or rash Neurologic Neurologic: Denies paresthesias or weakness Psychiatric Psychiatric: Denies anxiety or suicidal thoughts EXAM Physical Exam Const Vital Signs: 11/25/24 04:58 11/25/24 05:19 Temperature 98.4 F Temperature Source Oral Pulse Rate 93 Respiratory Rate 16 Blood Pressure 181/102 H Blood Pressure Mean 128 Pulse Ox 97 98 Oxygen Delivery Method Room Air Room Air Positive well nourished and well developed Constitutional Narrative: well-appearing, no distress General Appearance ED: well developed and NAD HEENT Reports moist mucous membranes normocephalic and atraumatic Eyes PERRL and EOMs intact bilaterally Neck full ROM and supple Resp normal respiratory effort Resp Narrative: Slight expiratory wheezes otherwise clear. Conversive in full sentences. Cardio regular rate, regular rhythm and no murmurs Rate: Negative for tachycardic GI non-tender and non-distended GI Narrative: Abdominal obesity. Benign abdomen. Auscultation: normoactive bowel sounds Palpation: soft Back/Spine no CVA tenderness General Back: other FROM Extremity bre (more content not included)... Normal [facility] Eosinophil percentageOrdered By: Viral Miller on 11-25-2024 Eosinophils/100 WBC (Bld) 0.0 % 0-5 [facility] Erythrocyte distribution wid th ratioOrdered By: Vrial Miller on 11-25-2024 Erythrocyte distribution width (RBC) [Ratio] 14.6 % 11.6-14.6 [facility] Erythrocyte distribution wid th standard deviationOrdered By: Viral Miller on 11-25-2024 Erythrocyte distribution width (RBC) [Entitic vol] 44.0 fL High 35.1-43.9 [facility] Estimation of creatinine alex aranceOrdered By: Viral Miller on 11-25-2024 Estimated Creatinine Clearance Calc 74.13 ml/min [facility] GFR/1.73 sq M.predicted nohemi g non-blacks MDRD (S/P/Bld) [Vol rate/Area]Ordered By: Viral Miller on 11-25-2024 Estimated GFR (MDRD) Non-Af Amer 83 >60 [facility] Comment on above: mL/min/1.73m2 CKD-EP I Creatinine Equation (2020) Hematocrit Auto (Bld) [Volum e fraction]Ordered By: Viral Miller on 11-25-2024 Hematocrit (Bld) [Volume fraction] 42.9 % 40-54 [facility] Hemoglobin measurementOrdere d By: Viral Miller on 11-25-2024 Hemoglobin (Bld) [Mass/Vol] 14.7 g/dL 13.0-16.5 [facility] Immature granulocytes/100 WB C Auto (Bld)Ordered By: Viral Miller on 11-25-2024 Immature granulocytes/100 WBC (Bld) 0.300 % 0.0-0.9 [facility] Comment on above: IG% - Immature Granu locytes (promyelocytes, myelocytes and metamyelocytes) > 1% indicates that a LEFT SHIFT is Present. Influenza virus A and B and SARS-CoV-2 (COVID-19) and Respiratory syncytial virus RNAOrdered By: Viral Miller on 11-25-2024 SARS-CoV-2 (COVID-19) RNA JOSEFINA+probe Ql (Unsp spec) [facility] Lymphocytes Auto (Unsp spec) [#/Vol]Ordered By: Viral Miller on 11-25-2024 Lymphocytes (Bld) [#/Vol] 1.35 10*3/uL 0.83-4.5 1 [facility] Lymphocytes/100 WBC Auto (Un sp spec)Ordered By: Viral Miller on 11-25-2024 Lymphocytes/100 WBC (Bld) 12.5 % Low 19-41 [facility] M100.678on 11-25-2024 M100.678 Normal Reference Range = Negative GeneXpert Instrument, PCR method SARS-CoV-2 (COVID 19) Negative INFLUENZA A Negative INFLUENZA B Negative RSV PCR Negative Normal [facility] Comment on above: Performed By: #### M 100.678 #### [facility] [address] [place] [address], [phone] MCV (mean corpuscular volume ) determinationOrdered By: Viral Miller on 11-25-2024 MCV (RBC) [Entitic vol] 82.8 fL 80-94 [facility] Mean corpuscular hemoglobin (MCH) determinationOrdered By: Viral Miller on 11-25-2024 MCH (RBC) [Entitic mass] 28.4 pg 27.0-32.0 [facility] Mean corpuscular hemoglobin concentration (MCHC) determinationOrdered By: Viral Miller on 11-25-2024 MCHC (RBC) [Mass/Vol] 34.3 g/dL 32-36 [facility] Mean platelet volume determi nationOrdered By: Viral Miller on 11-25-2024 Platelet mean volume (Bld) [Entitic vol] 9.2 fL 6.2-12.0 [facility] Monocyte percentageOrdered B y: Viral Miller on 11-25-2024 Monocytes/100 WBC (Bld) 6.6 % 0-10 [facility] Neutrophil percentageOrdered By: Viral Miller on 11-25-2024 Neutrophils/100 WBC (Bld) 80.3 % High 47-70 [facility] Nucleated red blood cell per centageOrdered By: Viral Miller on 11-25-2024 Nucleated RBC/100 WBC (Bld) [Ratio] 0 % 0-5 [facility] Platelet countOrdered By: Kathy Miller on 11-25-2024 Platelets (Bld) [#/Vol] 230 10*3/uL 150-450 [facility] RBC Auto (Bld) [#/Vol]Ordere d By: Viral Miller on 11-25-2024 RBC (Bld) [#/Vol] 5.18 10*6/uL 4.6-6.2 [facility] Serum creatinine measurement (mass/volume)Ordered By: Viral Miller on 11-25-2024 Creatinine [Mass/Vol] 0.92 mg/dL 0.70-1.20 [facility] Serum glucose measurement (m ass/volume)Ordered By: Viral Miller on 11-25-2024 Glucose [Mass/Vol] 142 mg/dL High 70-99 [facility] Serum or plasma anion gap de termination (moles/volume)Ordered By: Viral Miller on 11-25-2024 Anion gap [Moles/Vol] 15 mmol/L 5-15 [facility] Serum or plasma calcium fredy urement (mass/volume)Ordered By: Viral Miller on 11-25-2024 Calcium [Mass/Vol] 11.1 mg/dL High 7.6-11.0 [facility] Serum or plasma potassium me asurementOrdered By: Viral Miller on 11-25-2024 Potassium [Moles/Vol] 3.7 mmol/L 3.3-5.1 [facility] Serum or plasma sodium measu rement (moles/volume)Ordered By: Viral Miller on 11-25-2024 Sodium [Moles/Vol] 134 mmol/L 133-145 [facility] Serum or plasma urea nitroge n measurement (mass/volume)Ordered By: Viral Miller on 11-25-2024 Urea nitrogen [Mass/Vol] 17 mg/dL 4-19 [facility] White blood cell (WBC) count Ordered By: Viral Miller on 11-25-2024 WBC (Bld) [#/Vol] 10.8 10*3/uL 4.4-11.0 [facility] Protein Electroph, Son 09-25 Albumin [Mass/Vol] 3.6 g/dL Normal 2.9-4.4 [facility] Comment on above: Order Comment: Order Date: 09/21/24Order Info: 0060-1 - PROEL Performed By: #### L 506.1000, L3100.3450, L500.4050, L509.1000, L501.9520 ####[facility] [address] [place], [address] Albumin/Globulin [Mass ratio] 1.0 {ratio} Normal 0.7-1.7 [facility] Comment on above: Order Comment: Order Date: 09/21/24Order Info: 0060-1 - PROEL Performed By: #### L 506.1000, L3100.3450, L500.4050, L509.1000, L501.9520 ####[facility] [address] [place], [address] ALPHA-1 GLOBUL 0.2 g/dL Normal 0.0-0.4 [facility] Comment on above: Order Comment: Order Date: 09/21/24Order Info: 0060-1 - PROEL Performed By: #### L 506.1000, L3100.3450, L500.4050, L509.1000, L501.9520 ####[facility] [address] [place], [address] ALPHA-2 GLOBUL 0.9 g/dL Normal 0.4-1.0 [facility] Comment on above: Order Comment: Order Date: 09/21/24Order Info: 0060-1 - PROEL Performed By: #### L 506.1000, L3100.3450, L500.4050, L509.1000, L501.9520 ####[facility] [address] [place], [address] BETA GLOBULIN 1.3 g/dL Normal 0.7-1.3 [facility] Comment on above: Order Comment: Order Date: 09/21/24Order Info: 0060-1 - PROEL Performed By: #### L 506.1000, L3100.3450, L500.4050, L509.1000, L501.9520 ####[facility] [address] [place], [address] GAMMA GLOBULIN 1.1 g/dL Normal 0.4-1.8 [facility] Comment on above: Order Comment: Order Date: 09/21/24Order Info: 0060-1 - PROEL Performed By: #### L 506.1000, L3100.3450, L500.4050, L509.1000, L501.9520 ####[facility] [address] [place], [address] Globulin (S) [Mass/Vol] 3.5 g/dL Normal 2.2-3.9 [facility] Comment on above: Order Comment: Order Date: 09/21/24Order Info: 0060-1 - PROEL Performed By: #### L 506.1000, L3100.3450, L500.4050, L509.1000, L501.9520 ####[facility] [address] [place], [address] INTERPRETATION Comment Normal . [facility] Comment on above: Order Comment: Order Date: 09/21/24Order Info: 0060-1 - PROEL Result Comment: Prot ein electrophoresis scan will follow via computer, mail, or air filler delivery. Performed By: #### L 506.1000, L3100.3450, L500.4050, L509.1000, L501.9520 ####[facility] [address] [place], [address] M-SPIKE Not Observed Normal Not Observed [facility] Comment on above: Order Comment: Order Date: 09/21/24Order Info: 0060-1 - PROEL Performed By: #### L 506.1000, L3100.3450, L500.4050, L509.1000, L501.9520 ####[facility] [address] [place], [place], [id number] NOTE: Comment Normal . [facility] Comment on above: Order Comment: Order Date: 09/21/24Order Info: 0060-1 - PROEL Result Comment: The SPE pattern appears unremarkable. Evidence of monoclonal protein is not apparent. Performed at: [facility] [address] [place], [place] [id number] [employer]ili: Rosendo Bunn PhD, Phone: [phone] Performed By: #### L 506.1000, L3100.3450, L500.4050, L509.1000, L501.9520 ####[facility] [address] [place], [place], [id number] Protein [Mass/Vol] 7.1 g/dL Normal 6.0-8.5 [facility] Comment on above: Order Comment: Order Date: 09/21/24Order Info: 006- - PROEL Performed By: #### L 506.1000, L3100.3450, L500.4050, L509.1000, L501.9520 ####[facility] [address] [place], [place], [id number] 15-XH-Rjyoill DOrdered By: Alice Bernard on 09-21-2024 Vitamin D 25-Hydroxy 46.6 ng/mL [facility] Comment on above: Vitamin D 25(OH) Sta tus Range Deficiency <20 ng/mL (50nmol/L) Insufficiency 20 - 30 ng/mL (50 - 75 nmol/L) Sufficiency 30 - 100 ng/mL (75 - 250 nmol/L) Toxicity >100 ng/mL (>250 nmol/L) Addendum DocumentOrdered By: Thomas Bernard on 09-21-2024 Protein Electrophoresis Note Comment . [facility] Comment on above: The SPE pattern appe ars unremarkable. Evidence ofmonoclonal protein is not apparent.Performed at: [facility] [place], [place] [id number] Director: Rosendo Bunn PhD, Phone: [phone] Albumin Elph [Mass/Vol]Order ed By: Thomas Bernard on 09-21-2024 Albumin [Mass/Vol] 3.6 g/dL 2.9-4.4 [facility] Albumin to globulin ratioOrd ered By: Thomas Bernard on 09-21-2024 Albumin/Globulin [Mass ratio] 0.9 {ratio} 0.9-2.4 [facility] Albumin/Globulin Elph [Mass ratio]Ordered By: Thomas Bernard on 09-21-2024 Albumin/Globulin (PEP) 1.0 0.7-1.7 [facility] Shyny-9-fjsevhah measurement by protein electrophoresisOrdered By: Thomas Bernard on 09-21-2024 Urmhm-6-Oycmielre 0.2 g/dL 0.0-0.4 [facility] Lhzgf-8-gnctjpii measurement by protein electrophoresisOrdered By: Thomas Bernard on 09-21-2024 Iwhyc-1-Vdvumcawl 0.9 g/dL 0.4-1.0 [facility] Beta globulin Elph [Mass/Vol ]Ordered By: Thomas Bernard on 09-21-2024 Beta Globulins 1.3 g/dL 0.7-1.3 [facility] Bilirubin, totalOrdered By: Thomas Bernard on 09-21-2024 Bilirubin [Mass/Vol] 0.50 mg/dL 0.20-1.00 [facility] Comment on above: For patients on eltr ombopag therapy, use of Dimension [place] TBIL is not recommended. Blood urea nitrogen (BUN)/cr eatinine ratioOrdered By: Thomas Bernard on 09-21-2024 Urea nitrogen/Creatinine [Mass ratio] 14.0 mg/mg 10-20 [facility] Carbon dioxide measurementOr dered By: Thomas Bernard on 09-21-2024 CO2 [Moles/Vol] 26.0 mmol/L 21.0-32.0 [facility] Chloride measurementOrdered By: Thomas Bernard on 09-21-2024 Chloride [Moles/Vol] 105 mmol/L 98-107 [facility] Comprehensive Metabolic Prof ilon 09-21-2024 Albumin [Mass/Vol] 3.8 g/dL Normal 3.2-5.0 [facility] Comment on above: Order Comment: Order Date: 09/21/24 Order Info: 0786-1 - CMP Order Info: 301-3 - TSH cc copy of all to Dr. Jose Luis Minor Performed By: #### L 506.1000, L3100.3450, L500.4050, L509.1000, L501.9520 #### [facility] [address] [place], [address] Albumin/Globulin [Mass ratio] 0.9 {ratio} Normal 0.9-2.4 [facility] Comment on above: Order Comment: Order Date: 09/21/24 Order Info: [id number] - CMP Order Info: 3013 - TSH cc copy of all to Dr. Jose Luis Minor Performed By: #### L 506.1000, L3100.3450, L500.4050, L509.1000, L501.9520 #### [facility] [address] [place], [address] ALK P 50 U/L Normal 45-117 [facility] Comment on above: Order Comment: Order Date: 09/21/24 Order Info: 0786-1 - CMP Order Info: 3013 - TSH cc copy of all to Dr. Jose Luis Minor Performed By: #### L 506.1000, L3100.3450, L500.4050, L509.1000, L501.9520 #### [facility] [address] [place], [address] ALT [Catalytic activity/Vol] 38 U/L Normal 16-61 [facility] Comment on above: Order Comment: Order Date: 09/21/24 Order Info: 0786-1 - CMP Order Info: 3016-3 - TSH cc copy of all to Dr. Jose Luis Minor Performed By: #### L 506.1000, L3100.3450, L500.4050, L509.1000, L501.9520 #### [facility] [address] [place], [address] AST [Catalytic activity/Vol] 29 U/L Normal 15-37 [facility] Comment on above: Order Comment: Order Date: 09/21/24 Order Info: 07-1 - CMP Order Info: 3015-3 - TSH cc copy of all to Dr. Jose Luis Minor Performed By: #### L 506.1000, L3100.3450, L500.4050, L509.1000, L501.9520 #### [facility] [address] [place], [address] Bilirubin [Mass/Vol] 0.50 mg/dL Normal 0.20-1.00 [facility] Comment on above: Order Comment: Order Date: 09/21/24 Order Info: 785-1 - CMP Order Info: 6-3 - TSH cc copy of all to Dr. Jose Luis Minor Result Comment: For patients on eltrombopag therapy, use of Dimension [place] TBIL is not recommended. Performed By: #### L 506.1000, L3100.3450, L500.4050, L509.1000, L501.9520 #### [facility] [address] [place], [address] BUN/CRE 14.0 RATIO Normal 10-20 [facility] Comment on above: Order Comment: Order Date: 09/21/24 Order Info: 0786-1 - CMP Order Info: 3015-3 - TSH cc copy of all to Dr. Jose Luis Minor Performed By: #### L 506.1000, L3100.3450, L500.4050, L509.1000, L501.9520 #### [facility] [address] [place], [address] CA,Total 9.8 mg/dL Normal 8.5-10.1 [facility] Comment on above: Order Comment: Order Date: 09/21/24 Order Info: 07-1 - CMP Order Info: 6-3 - TSH cc copy of all to Dr. Jose Luis Minor Performed By: #### L 506.1000, L3100.3450, L500.4050, L509.1000, L501.9520 #### [facility] [address] [place], [address] Chloride [Moles/Vol] 105 mmol/L Normal 98-107 [facility] Comment on above: Order Comment: Order Date: 09/21/24 Order Info: 0786-1 - [facility] Order Info: 6-3 - TSH cc copy of all to Dr Arias, Dr. Jose Luis Mata Performed By: #### L 506.1000, L3100.3450, L500.4050, L509.1000, L501.9520 #### [facility] [address] [place], [address] CO2 [Moles/Vol] 26.0 mmol/L Normal 21.0-32.0 [facility] Comment on above: Order Comment: Order Date: 09/21/24 Order Info: 0786-1 - [facility] Order Info: 3013 - TSH cc copy of all to Dr. Jose Luis Minor Performed By: #### L 506.1000, L3100.3450, L500.4050, L509.1000, L501.9520 #### [facility] [address] [place], [address] Creatinine [Mass/Vol] 1.07 mg/dL Normal 0.70-1.30 [facility] Comment on above: Order Comment: Order Date: 09/21/24 Order Info: 0786-1 - [facility] Order Info: 301-3 - TSH cc copy of all to Dr. Jose Luis Minor Result Comment: The validity of the calculated GFR GFRAA in patients over 70 years has not been determined. Clinical correlation is essential. Performed By: #### L 506.1000, L3100.3450, L500.4050, L509.1000, L501.9520 #### [facility] [address] [place], [address] EST GFR - AA 85 mL/min Normal >60 [facility] Comment on above: Order Comment: Order Date: 09/21/24 Order Info: 0786- - CMP Order Info: 3015-3 - TSH cc copy of all to Dr. Jose Luis Minor Result Comment: Afri can Slovak GFR Calc Performed By: #### L 506.1000, L3100.3450, L500.4050, L509.1000, L501.9520 #### [facility] [address] [place], [address] GAP 8 Normal 5-15 [facility] Comment on above: Order Comment: Order Date: 09/21/24 Order Info: 785-09 - CMP Order Info: 3 - TSH cc copy of all to Dr Arias, Dr. Jose Luis Mata Performed By: #### L 506.1000, L3100.3450, L500.4050, L509.1000, L501.9520 #### [facility] [address] [place], [address] GFR/1.73 sq M.predicted among non-blacks MDRD (S/P/Bld) [Vol rate/Area] 70 mL/min/{1.73_m2} Normal >60 [facility] Comment on above: Order Comment: Order Date: 09/21/24 Order Info: 0786 - CMP Order Info: 3 - TSH cc copy of all to Dr. Jose Luis Minor Result Comment: Non- GFR Calc Performed By: #### L 506.1000, L3100.3450, L500.4050, L509.1000, L501.9520 #### [facility] [address] [place], [address] Globulin (S) [Mass/Vol] 4.2 g/dL Normal 2.2-4.2 [facility] Comment on above: Order Comment: Order Date: 09/21/24 Order Info: 0786-1 - CMP Order Info: 3 - TSH cc copy of all to Dr. Jose Luis Minor Performed By: #### L 506.1000, L3100.3450, L500.4050, L509.1000, L501.9520 #### [facility] [address] [place], [address] Glucose [Mass/Vol] 104 mg/dL Normal 74-106 [facility] Comment on above: Order Comment: Order Date: 09/21/24 Order Info: 0786-1 - [facility] Order Info: 3015-3 - TSH cc copy of all to Dr. Jose Luis Minor Result Comment: Fast ing Glucose result from 100 to 125 mg/dL suggests IMPAIRED HOMEOSTASIS per A.D.A. criteria. Performed By: #### L 506.1000, L3100.3450, L500.4050, L509.1000, L501.9520 #### [facility] [address] [place], [address] Potassium [Moles/Vol] 3.9 mmol/L Normal 3.5-5.1 [facility] Comment on above: Order Comment: Order Date: 09/21/24 Order Info: 0786 - [facility] Order Info: 3015-3 - TSH cc copy of all to Dr. Jose Luis Minor Performed By: #### L 506.1000, L3100.3450, L500.4050, L509.1000, L501.9520 #### [facility] [address] [place], [address] Sodium [Moles/Vol] 140 mmol/L Normal 136-145 [facility] Comment on above: Order Comment: Order Date: 09/21/24 Order Info: 0786-1 - [facility] Order Info: 3015-3 - TSH cc copy of all to Dr. Jose Luis Minor Performed By: #### L 506.1000, L3100.3450, L500.4050, L509.1000, L501.9520 #### [facility] [address] [place], [address] T PROT 8.0 g/dL Normal 6.4-8.2 [facility] Comment on above: Order Comment: Order Date: 09/21/24 Order Info: 0786-1 - CMP Order Info: 3016-3 - TSH cc copy of all to Dr Arias, Dr. Jose Luis Mata Performed By: #### L 506.1000, L3100.3450, L500.4050, L509.1000, L501.9520 #### [facility] [address] [place], [place], [address] Urea nitrogen [Mass/Vol] 15 mg/dL Normal 7-18 [facility] Comment on above: Order Comment: Order Date: 09/21/24 Order Info: 0786-1 - CMP Order Info: 3016-3 - TSH cc copy of all to Dr Arias, Dr. Jose Luis Mata Performed By: #### L 506.1000, L3100.3450, L500.4050, L509.1000, L501.9520 #### [facility] [address] [place], [place], [address] Estimated glomerular filtrat ion rate (GFR) AmericanOrdered By: Thomas Bernard on 09-21-2024 Estimated GFR (MDRD) Amer 85 mL/min >60 [facility] Comment on above: GFR Calc Gamma globulin measurement b y protein electrophoresisOrdered By: Thomas Bernard on 09-21-2024 Gamma Globulins 1.1 g/dL 0.4-1.8 [facility] Globulin (S) [Mass/Vol]Order ed By: Thomas Bernard on 09-21-2024 Globulin (PEP) 3.5 g/dL 2.2-3.9 [facility] Glomerular filtration rate ( GFR) estimationOrdered By: Thomas Bernard on 09-21-2024 Estimated GFR (MDRD) Non-Af Amer 70 mL/min >60 [facility] Comment on above: Non- GFR Calc Glucose measurementOrdered B y: Thomas Bernard on 09-21-2024 Glucose [Mass/Vol] 104 mg/dL 74-106 [facility] Comment on above: Fasting Glucose resu lt from 100 to 125 mg/dL suggests IMPAIRED HOMEOSTASIS per A.D.A. criteria. Intact parathyroid hormone ( iPTH) measurementOrdered By: Thomas Bernard on 09-21-2024 Parathyroid Hormone (Intact) 54.5 pg/mL 18.4-80.1 [facility] - Chemistry and C hemistry - challengeOrdered By: Thomas Bernard on 09-21-2024 AST [Catalytic activity/Vol] 29 U/L 15-37 [facility] PTHINon 09-21-2024 PTH 54.5 pg/mL Normal 18.4-80.1 [facility] Comment on above: Order Comment: Order Date: 09/21/24 Order Info: [id number] - PTHIN Performed By: #### L 506.1000, L3100.3450, L500.4050, L509.1000, L501.9520 #### [facility] [address] [place], [address] Potassium measurementOrdered By: Thomas Bernard on 09-21-2024 Potassium [Moles/Vol] 3.9 mmol/L 3.5-5.1 [facility] Protein Fractions Elph [Inte rp]Ordered By: Thomas Bernard on 09-21-2024 Protein Electrophoresis Interpret Comment . [facility] Comment on above: Protein electrophore sis scan will follow via computer,mail, or air filler delivery. Protein.monoclonal Elph [Mas s/Vol]Ordered By: Thomas Bernard on 09-21-2024 Protein Electrophoresis M-Fox Not Observed g/dL Not Observed [facility] Serum anion gap measurementO rdered By: Thomas Bernard on 09-21-2024 Anion gap [Moles/Vol] 8 mmol/L 5-15 [facility] Serum globulin measurementOr dered By: Thomas Bernard on 09-21-2024 Globulin (S) [Mass/Vol] 4.2 g/dL 2.2-4.2 [facility] Serum or plasma alanine wyman otransferase (ALT) measurementOrdered By: Thomas Bernard on 09-21-2024 ALT [Catalytic activity/Vol] 38 U/L 16-61 [facility] Serum or plasma albumin fredy urement (mass/volume)Ordered By: Thomas Bernard on 09-21-2024 Albumin [Mass/Vol] 3.8 g/dL 3.2-5.0 [facility] Serum or plasma alkaline airam sphatase measurementOrdered By: Thomas Bernard on 09-21-2024 ALP [Catalytic activity/Vol] 50 U/L 45-117 [facility] Serum or plasma calcium fredy urement (mass/volume)Ordered By: Thomas Bernard on 09-21-2024 Calcium [Mass/Vol] 9.8 mg/dL 8.5-10.1 [facility] Serum or plasma creatinine m easurement (mass/volume)Ordered By: Thomas Bernard on 09-21-2024 Creatinine [Mass/Vol] 1.07 mg/dL 0.70-1.30 [facility] Comment on above: The validity of the calculated GFR & GFRAA in patients over 70 years has not been determined. Clinical correlation is essential. Serum or plasma protein fredy urement (mass/volume)Ordered By: Thomas Bernard on 09-21-2024 Protein [Mass/Vol] 7.1 g/dL 6.0-8.5 [facility] Serum or plasma urea nitroge n measurement (mass/volume)Ordered By: Thomas Bernard on 09-21-2024 Urea nitrogen [Mass/Vol] 15 mg/dL 7-18 [facility] Sodium levelOrdered By: Thomas Bernard on 09-21-2024 Sodium [Moles/Vol] 140 mmol/L 136-145 [facility] TSH QnOrdered By: Thomas Bernard on 09-21-2024 Thyroid Stimulating Hormone (TSH) 1.850 uIU/mL 0.358-3.740 [facility] Thyroid Stim Hormone (TSH)on 09-21-2024 TSH 1.850 uIU/mL Normal 0.358-3.740 [facility] Comment on above: Order Comment: Order Date: 09/21/24Order Info: 0786-1 - CMPOrder Info: 3016-3 - TSHcc copy of all to Dr Arias, Dr. Jose Luis Mata Performed By: #### L 506.1000, L3100.3450, L500.4050, L509.1000, L501.9520 ####[facility] [address] [place], [address] Total proteinOrdered By: Juju Bernard on 09-21-2024 Protein [Mass/Vol] 8.0 g/dL 6.4-8.2 [facility] Vitamin D,25 Hydroxyon 09-21 Vitamin D 25-OH 46.6 ng/mL Normal [facility] Comment on above: Order Comment: Order Date: 09/21/24 Order Info: [id number] - VITD25 Result Comment: Ekta min D 25(OH) Status Range Deficiency <20 ng/mL (50nmol/L) Insufficiency 20 - 30 ng/mL (50 - 75 nmol/L) Sufficiency 30 - 100 ng/mL (75 - 250 nmol/L) Toxicity >100 ng/mL (>250 nmol/L) Performed By: #### L 506.1000, L3100.3450, L500.4050, L509.1000, L501.9520 #### [facility] [address] [place], [address] Basic Metabolic Profile (BMP )on 08-18-2024 BUN/CRE 19.2 RATIO Normal 10-20 [facility] Comment on above: Performed By: #### L 500.2500 ####[facility] [address] [place], [address] CA,Total 10.4 mg/dL High 8.5-10.1 [facility] Comment on above: Performed By: #### L 500.2500 ####[facility] [address] [place], [address] Chloride [Moles/Vol] 105 mmol/L Normal 98-107 [facility] Comment on above: Performed By: #### L 500.2500 ####[facility] [address] [place], [address] CO2 [Moles/Vol] 29.0 mmol/L Normal 21.0-32.0 [facility] Comment on above: Performed By: #### L 500.2500 ####[facility] [address] [place], [address] Creatinine [Mass/Vol] 1.04 mg/dL Normal 0.70-1.30 [facility] Comment on above: Result Comment: The validity of the calculated GFR GFRAA in patients over 70 years has not been determined. Clinical correlation is essential. Performed By: #### L 500.2500 ####[facility] [address] [place], [address] EST GFR - AA 88 mL/min Normal >60 [facility] Comment on above: Result Comment: Afri can Slovak GFR Calc Performed By: #### L 500.2500 ####[facility] [address] [place], [address] GAP 5 Normal 5-15 [facility] Comment on above: Performed By: #### L 500.2500 ####[facility] [address] [place], [address] GFR/1.73 sq M.predicted among non-blacks MDRD (S/P/Bld) [Vol rate/Area] 73 mL/min/{1.73_m2} Normal >60 [facility] Comment on above: Result Comment: Non- GFR Calc Performed By: #### L 500.2500 ####[facility] [address] [place], [address] Glucose [Mass/Vol] 93 mg/dL Normal 74-106 [facility] Comment on above: Performed By: #### L 500.2500 ####[facility] [address] [place], [address] Potassium [Moles/Vol] 4.6 mmol/L Normal 3.5-5.1 [facility] Comment on above: Performed By: #### L 500.2500 ####[facility] [address] [place], [address] Sodium [Moles/Vol] 139 mmol/L Normal 136-145 [facility] Comment on above: Performed By: #### L 500.2500 ####[facility] [address] [place], [address] Urea nitrogen [Mass/Vol] 20 mg/dL High 7-18 [facility] Comment on above: Performed By: #### L 500.2500 ####[facility] [address] [place], [address] Blood urea nitrogen (BUN)/cr eatinine ratioOrdered By: Iwona Mireles on 08-18-2024 Urea nitrogen/Creatinine [Mass ratio] 19.2 mg/mg 10-20 [facility] Carbon dioxide measurementOr dered By: Iwona Mireles on 08-18-2024 CO2 [Moles/Vol] 29.0 mmol/L 21.0-32.0 [facility] Chloride measurementOrdered By: Iwona Mireles on 08-18-2024 Chloride [Moles/Vol] 105 mmol/L 98-107 [facility] Estimated glomerular filtrat ion rate (GFR) AmericanOrdered By: Iwona Mireles on 08-18-2024 Estimated GFR (MDRD) Amer 88 mL/min >60 [facility] Comment on above: GFR Calc Glomerular filtration rate ( GFR) estimationOrdered By: Iwona Mireles on 08-18-2024 Estimated GFR (MDRD) Non-Af Amer 73 mL/min >60 [facility] Comment on above: Non- GFR Calc Glucose measurementOrdered B y: Iwona Mireles on 08-18-2024 Glucose [Mass/Vol] 93 mg/dL 74-106 [facility] Potassium measurementOrdered By: Iwona Mireles on 08-18-2024 Potassium [Moles/Vol] 4.6 mmol/L 3.5-5.1 [facility] Serum anion gap measurementO rdered By: Iwona Mireles on 08-18-2024 Anion gap [Moles/Vol] 5 mmol/L 5-15 [facility] Serum or plasma calcium fredy urement (mass/volume)Ordered By: Iwona Mireles on 08-18-2024 Calcium [Mass/Vol] 10.4 mg/dL High 8.5-10.1 [facility] Serum or plasma creatinine m easurement (mass/volume)Ordered By: Iwona Mireles on 08-18-2024 Creatinine [Mass/Vol] 1.04 mg/dL 0.70-1.30 [facility] Comment on above: The validity of the calculated GFR & GFRAA in patients over 70 years has not been determined. Clinical correlation is essential. Serum or plasma urea nitroge n measurement (mass/volume)Ordered By: Iwona Mireles on 08-18-2024 Urea nitrogen [Mass/Vol] 20 mg/dL High 7-18 [facility] Sodium levelOrdered By: Christie Mireles on 08-18-2024 Sodium [Moles/Vol] 139 mmol/L 136-145 [facility] Cardiology Visit Reporton Cardiology Visit Report [facility] [address] [place] [address]. [address] [place] [address] OFFICE VISIT Date of Service: 07/24/24 MR#: [id number] Acct: [id number] Name: ALEXANDER PETIT Rep #: [id number] : 1940 Provider: EVIN magdaleno Age/Sex: 84/M Location: [facility] Status: Signed HPI HPI History of Present Illness Details: Alexander Petit is an 84-year-old white male who presents today for outpatient cardiovascular follow-up visit. He has a history of aortic stenosis (mild), perimembranous VSD (small), cardiac ectopy with PVCs, and hypertension. He does bring blood pressure readings with him-they average 130's/70's. He states his PCP just placed him on Clonidine 0.1mg TID, and increased his metoprolol. From a cardiac standpoint, the patient is doing well. He denies any palpitations, chest pain, pressure or heaviness. He denies SOB, Orthopnea, and PND. He does not have bleeding issues; no blood in urine, stool or nosebleeds. He does acknowledge a slight decrease in energy level-attributes this to age. He denies myalgias, or claudication. He does not have edema, or sudden weight gain. He denies dizziness, lightheadedness, syncopal or near syncopal episodes, and headaches. 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 Is patient in pain?: No Allergies prednisone Adverse Reaction (Verified 07/24/24 10:13) ORAL THRUSH Medications ???Medication ???Instructions ???Recorded ???Confirmed ???Type multivitamin with folic acid 400 1 tab PO DAILY vitamin 11/02/14 07/24/24 History mcg tablet amlodipine 10 mg tablet 10 mg PO DAILY 03/14/20 07/24/24 History cholecalciferol (vitamin D3) 50 50 mcg PO DAILY 03/14/20 07/24/24 History mcg (2,000 unit) capsule glucosamine-chondroi tin 250 mg-200 2 tab PO DAILY 03/14/20 07/24/24 History mg tablet (Osteo Bi-Flex) valsartan 320 mg tablet 320 mg PO DAILY 03/14/20 07/24/24 History biotin 10,000 mcg capsule 5,000 mcg PO DAILY SUPPLEMENT 02/27/22 07/24/24 History potassium chloride 20 mEq 20 meq PO BID #180 tabs 10/15/23 07/24/24 Rx tablet,extended release hydrochlorothiazide 25 mg tablet 25 mg PO DAILY #90 tabs 01/04/24 07/24/24 Rx carvedilol 12.5 mg tablet 12.5 mg PO BID #60 tabs 07/24/24 07/24/24 Rx Have you fallen in the past year?: No PFSH Medical History Premature ventricular contraction GERD (gastroesophageal reflux disease) BPH (benign prostatic hyperplasia) VSD (ventricular septal defect) Nonrheumatic aortic (valve) stenosis Essential hypertension Surgical History History of bilateral cataract extraction History of rotator cuff surgery S/P TURP (status post transurethral resection of prostate) History of left heart catheterization (LHC) ( 02/28/02) History of tonsillectomy and adenoidectomy History of transurethral resection of prostate Family History Father CAD (coronary artery disease) Hypertension Mother CVA (cerebral vascular accident) Social History Smoking Status: Former smoker alcohol intake: never substance use type: does not use caffeine: Yes Type: coffee Number of servings: 4 ROS Const Const: Positive for fatigue (slight); Negative for weakness, fever(s), headache(s), chills, frequent falls, weight gain or weight loss Eyes Eyes: Negative for blind spots, loss of peripheral vision, transient loss of vision, blurry vision, change in vision, double vision, floaters or tunnel vision ENT ENT: Negative for headache(s), dizziness, Nosebleed/epistaxis, balance problems or neck pain Cardio Chest Pain: No Palpitations: No Edema: None Muscle aches with walking: None Resp Respiratory: Negative for SOB with activity, SOB at rest or SOB orthopnea SOB lying down GI GI: Negative nausea, vomiting, heartburn, bloating, vomiting blood/hematemesis, bright, red blood in stools or black,tarry stools Musc Musc: Negative for muscle aches/ myalgia, muscle weakness, joint pain or balance problems Neuro Neuro: Negative for dizziness, lightheadedness, near syncope, syncope, orthostatic symptoms, frequent falls, headache(s), weakness, blurry vision or double vision Emre Hematologic/Lymphati c: Negative for easy bleeding or easy bruising Endo Endo: Positive for fatigue (slight) Cardiology Exam Const Appearance: cooperative, healthy appearing (more content not included)... Normal [facility] Absolute lymphocyte countOrd ered By: Zhang Lawrence on 08-25-2023 Lymphocytes Auto (Unsp spec) [#/Vol] 1.88 10*3/uL 0.83-4.51 [facility] Basophil percentageOrdered B y: Zhang Lawrence on 08-25-2023 Basophils/100 WBC (Bld) 0.7 % 0-1 [facility] Bilirubin [Mass/Vol] 0.50 mg/dL 0.20-1.00 [facility] Comment on above: For patients on eltr ombopag therapy, use of Dimension [place] TBIL is not recommended. Chloride [Moles/Vol] 103 mmol/L 98-107 [facility] Eosinophils/100 WBC (Bld) 3.1 % 0-5 [facility] Glucose [Mass/Vol] 127 mg/dL 74-106 [facility] Comment on above: Fasting Glucose resu lt greater than or equal to 126 mg/dL suggests DIABETES MELLITUS per A.D.A. criteria. Neutrophils (Bld) [#/Vol] 4.3 10*3/uL 2.0-7.7 [facility] Neutrophils/100 WBC (Bld) 60.5 % 47-70 [facility] Potassium [Moles/Vol] 3.6 mmol/L 3.5-5.1 [facility] Protein [Mass/Vol] 7.5 g/dL 6.4-8.2 [facility] Sodium [Moles/Vol] 137 mmol/L 136-145 [facility] WBC (Bld) [#/Vol] 7.1 10*3/uL 4.4-11.0 [facility] Blood erythrocytes count (nu mber/volume)Ordered By: Zhang Lawrence on 08-25-2023 RBC (Bld) [#/Vol] 5.01 10*6/uL 4.6-6.2 [facility] Blood hemoglobin measurement (mass/volume)Ordered By: Zhang Lawrence on 08-25-2023 Hemoglobin (Bld) [Mass/Vol] 14.5 g/dL 13.0-16.5 [facility] Blood lymphocytes/100 leukoc ytesOrdered By: Zhang Lawrence on 08-25-2023 Lymphocytes/100 WBC (Bld) 26.6 % 19-41 [facility] Blood monocytes/100 leukocyt esOrdered By: Zhang Lawrence on 08-25-2023 Monocytes/100 WBC (Bld) 8.8 % 0-10 [facility] Blood platelet mean volumeOr dered By: Zhang Lawrence on 08-25-2023 Platelet mean volume (Bld) [Entitic vol] 9.6 fL 6.2-12.0 [facility] Determination of erythrocyte mean corpuscular volume (MCV)Ordered By: Zhang Lawrence on 08-25-2023 MCV (RBC) [Entitic vol] 86.8 fL 80-94 [facility] Hematocrit Auto (Bld) [Volum e fraction]Ordered By: Zhang Lawrence on 08-25-2023 Hematocrit (Bld) [Volume fraction] 43.5 % 40-54 [facility] Laboratory - Chemistry and C hemistry - challengeOrdered By: Zhang Lawrence on 08-25-2023 ALP [Catalytic activity/Vol] 45 U/L 45-117 [facility] ALT [Catalytic activity/Vol] 42 U/L 16-61 [facility] CO2 [Moles/Vol] 29.0 mmol/L 21.0-32.0 [facility] Globulin (S) [Mass/Vol] 4.1 g/dL 2.2-4.2 [facility] Urea nitrogen/Creatinine [Mass ratio] 15.9 mg/mg 10-20 [facility] Laboratory - Hematology and Cell countsOrdered By: Zhang Lawrence on 08-25-2023 Erythrocyte distribution width (RBC) [Entitic vol] 48.0 fL 35.1-43.9 [facility] Erythrocyte distribution width (RBC) [Ratio] 15.1 % 11.6-14.6 [facility] Immature granulocytes/100 WBC (Bld) 0.300 % 0.0-0.9 [facility] Comment on above: IG% - Immature Granu locytes (promyelocytes, myelocytes and metamyelocytes) > 1% indicates that a LEFT SHIFT is Present. MCH (RBC) [Entitic mass] 28.9 pg 27.0-32.0 [facility] Nucleated RBC/100 WBC (Bld) [Ratio] 0 % 0-5 [facility] MCHC Auto (RBC) [Mass/Vol]Or dered By: Zhang Lawrence on 08-25-2023 MCHC (RBC) [Mass/Vol] 33.3 g/dL 32-36 [facility] No Panel InformationOrdered By: Zhang Lawrence on 08-25-2023 Estimated GFR (MDRD) Amer 80 mL/min >60 [facility] Comment on above: GFR Calc Estimated GFR (MDRD) Non-Af Amer 66 mL/min >60 [facility] Comment on above: Non- GFR Calc Thyroid Stimulating Hormone (TSH) 2.16 uIU/mL 0.358-3.74 [facility] Vitamin D 25-Hydroxy 53.4 ng/mL [facility] Comment on above: Vitamin D 25(OH) Sta tus Range Deficiency <20 ng/mL (50nmol/L) Insufficiency 20 - 30 ng/mL (50 - 75 nmol/L) Sufficiency 30 - 100 ng/mL (75 - 250 nmol/L) Toxicity >100 ng/mL (>250 nmol/L) Platelets bldOrdered By: Zhang Lawrence on 08-25-2023 Platelets (Bld) [#/Vol] 258 10*3/uL 150-450 [facility] Serum or plasma albumin fredy urement (mass/volume)Ordered By: Zhang Lawrence on 08-25-2023 Albumin [Mass/Vol] 3.4 g/dL 3.2-5.0 [facility] Serum or plasma albumin/glob ulin mass ratioOrdered By: Zhang Lawrence on 08-25-2023 Albumin/Globulin [Mass ratio] 0.8 {ratio} 0.9-2.4 [facility] Serum or plasma calcium fredy urement (mass/volume)Ordered By: Zhang Lawrence on 08-25-2023 Calcium [Mass/Vol] 9.2 mg/dL 8.5-10.1 [facility] Serum or plasma creatinine m easurement (mass/volume)Ordered By: Zhang Lawrence on 08-25-2023 Creatinine [Mass/Vol] 1.13 mg/dL 0.70-1.30 [facility] Comment on above: The validity of the calculated GFR & GFRAA in patients over 70 years has not been determined. Clinical correlation is essential. Serum or plasma urea nitroge n measurement (mass/volume)Ordered By: Zhang Lawrence on 08-25-2023 Urea nitrogen [Mass/Vol] 18 mg/dL 7-18 [facility] Thin prep Papanicolaou smear with manual screeningOrdered By: Zhang Lawrence on 08-25-2023 Thin prep Papanicolaou smear with manual screening 31 U/L 15-37 [facility] Thin prep Papanicolaou smear with manual screening 5 5-15 [facility] Absolute lymphocyte countOrd ered By: Dr. Lawrence on 01-27-2023 Lymphocytes Auto (Unsp spec) [#/Vol] 1.83 10*3/uL 0.83-4.51 [facility] Basophil percentageOrdered B y: Dr. Lawrence on 01-27-2023 Basophils/100 WBC (Bld) 0.8 % 0-1 [facility] Bilirubin [Mass/Vol] 0.40 mg/dL 0.20-1.00 [facility] Comment on above: For patients on eltr ombopag therapy, use of Dimension [place] TBIL is not recommended. Chloride [Moles/Vol] 106 mmol/L 98-107 [facility] Eosinophils/100 WBC (Bld) 3.7 % 0-5 [facility] Glucose [Mass/Vol] 98 mg/dL 74-106 [facility] Neutrophils (Bld) [#/Vol] 3.4 10*3/uL 2.0-7.7 [facility] Neutrophils/100 WBC (Bld) 56.7 % 47-70 [facility] Potassium [Moles/Vol] 3.4 mmol/L 3.5-5.1 [facility] Protein [Mass/Vol] 7.0 g/dL 6.4-8.2 [facility] Sodium [Moles/Vol] 142 mmol/L 136-145 [facility] WBC (Bld) [#/Vol] 5.9 10*3/uL 4.4-11.0 [facility] Blood erythrocytes count (nu mber/volume)Ordered By: Dr. Lawrence on 01-27-2023 RBC (Bld) [#/Vol] 4.86 10*6/uL 4.6-6.2 [facility] Blood hemoglobin measurement (mass/volume)Ordered By: Dr. Lawrence on 01-27-2023 Hemoglobin (Bld) [Mass/Vol] 13.5 g/dL 13.0-16.5 [facility] Blood lymphocytes/100 leukoc ytesOrdered By: Dr. Lawrence on 01-27-2023 Lymphocytes/100 WBC (Bld) 30.9 % 19-41 [facility] Blood monocytes/100 leukocyt esOrdered By: Dr. Lawrence on 01-27-2023 Monocytes/100 WBC (Bld) 7.6 % 0-10 [facility] Blood platelet mean volumeOr dered By: Dr. Lawrence on 01-27-2023 Platelet mean volume (Bld) [Entitic vol] 9.6 fL 6.2-12.0 [facility] Determination of erythrocyte mean corpuscular volume (MCV)Ordered By: Dr. Lawrence on 01-27-2023 MCV (RBC) [Entitic vol] 87.7 fL 80-94 [facility] Hematocrit Auto (Bld) [Volum e fraction]Ordered By: Dr. Lawrence on 01-27-2023 Hematocrit (Bld) [Volume fraction] 42.6 % 40-54 [facility] Laboratory - Chemistry and C hemistry - challengeOrdered By: Dr. Lawrence on 01-27-2023 ALP [Catalytic activity/Vol] 41 U/L 45-117 [facility] ALT [Catalytic activity/Vol] 46 U/L 16-61 [facility] CO2 [Moles/Vol] 30.0 mmol/L 21.0-32.0 [facility] Globulin (S) [Mass/Vol] 3.8 g/dL 2.2-4.2 [facility] Urea nitrogen/Creatinine [Mass ratio] 16.3 mg/mg 10-20 [facility] Laboratory - Hematology and Cell countsOrdered By: Dr. Lawrence on 01-27-2023 Erythrocyte distribution width (RBC) [Entitic vol] 48.5 fL 35.1-43.9 [facility] Erythrocyte distribution width (RBC) [Ratio] 15.2 % 11.6-14.6 [facility] Immature granulocytes/100 WBC (Bld) 0.300 % 0.0-0.9 [facility] Comment on above: IG% - Immature Granu locytes (promyelocytes, myelocytes and metamyelocytes) > 1% indicates that a LEFT SHIFT is Present. MCH (RBC) [Entitic mass] 27.8 pg 27.0-32.0 [facility] Nucleated RBC/100 WBC (Bld) [Ratio] 0 % 0-5 [facility] MCHC Auto (RBC) [Mass/Vol]Or dered By: Dr. Lawrence on 01-27-2023 MCHC (RBC) [Mass/Vol] 31.7 g/dL 32-36 [facility] No Panel InformationOrdered By: Dr. Lawrence on 01-27-2023 Estimated GFR (MDRD) Amer 94 mL/min >60 [facility] Comment on above: GFR Calc Estimated GFR (MDRD) Non-Af Amer 78 mL/min >60 [facility] Comment on above: Non- GFR Calc Thyroid Stimulating Hormone (TSH) 1.25 uIU/mL 0.358-3.74 [facility] Vitamin D 25-Hydroxy 58.9 ng/mL [facility] Comment on above: Vitamin D 25(OH) Sta tus Range Deficiency <20 ng/mL (50nmol/L) Insufficiency 20 - 30 ng/mL (50 - 75 nmol/L) Sufficiency 30 - 100 ng/mL (75 - 250 nmol/L) Toxicity >100 ng/mL (>250 nmol/L) Platelets bldOrdered By: Dr. Lawrence on 01-27-2023 Platelets (Bld) [#/Vol] 254 10*3/uL 150-450 [facility] Serum or plasma albumin fredy urement (mass/volume)Ordered By: Dr. Lawrence on 01-27-2023 Albumin [Mass/Vol] 3.2 g/dL 3.2-5.0 [facility] Serum or plasma albumin/glob ulin mass ratioOrdered By: Dr. Lawrence on 01-27-2023 Albumin/Globulin [Mass ratio] 0.8 {ratio} 0.9-2.4 [facility] Serum or plasma calcium fredy urement (mass/volume)Ordered By: Dr. Lawrence on 01-27-2023 Calcium [Mass/Vol] 9.4 mg/dL 8.5-10.1 [facility] Serum or plasma creatinine m easurement (mass/volume)Ordered By: Dr. Lawrence on 01-27-2023 Creatinine [Mass/Vol] 0.98 mg/dL 0.70-1.30 [facility] Comment on above: The validity of the calculated GFR & GFRAA in patients over 70 years has not been determined. Clinical correlation is essential. Serum or plasma urea nitroge n measurement (mass/volume)Ordered By: Dr. Lawrence on 01-27-2023 Urea nitrogen [Mass/Vol] 16 mg/dL 7-18 [facility] Thin prep Papanicolaou smear with manual screeningOrdered By: Dr. Lawrence on 01-27-2023 Thin prep Papanicolaou smear with manual screening 30 U/L 15-37 [facility] Thin prep Papanicolaou smear with manual screening 6 5-15 [facility] Absolute lymphocyte countOrd ered By: Dr. Nguyen on 01-12-2023 Lymphocytes Auto (Unsp spec) [#/Vol] 1.24 10*3/uL 0.83-4.51 [facility] Basophil percentageOrdered B y: Dr. Nguyen on 01-12-2023 Basophils/100 WBC (Bld) 0.5 % 0-1 [facility] Chloride [Moles/Vol] 100 mmol/L 98-107 [facility] Eosinophils/100 WBC (Bld) 1.0 % 0-5 [facility] Glucose [Mass/Vol] 112 mg/dL 74-106 [facility] Comment on above: Fasting Glucose resu lt from 100 to 125 mg/dL suggests IMPAIRED HOMEOSTASIS per A.D.A. criteria. Neutrophils (Bld) [#/Vol] 8.6 10*3/uL 2.0-7.7 [facility] Neutrophils/100 WBC (Bld) 79.6 % 47-70 [facility] Potassium [Moles/Vol] 3.3 mmol/L 3.5-5.1 [facility] Sodium [Moles/Vol] 134 mmol/L 136-145 [facility] WBC (Bld) [#/Vol] 10.8 10*3/uL 4.4-11.0 [facility] Blood erythrocytes count (nu mber/volume)Ordered By: Dr. Nguyen on 01-12-2023 RBC (Bld) [#/Vol] 5.28 10*6/uL 4.6-6.2 [facility] Blood hemoglobin measurement (mass/volume)Ordered By: Dr. Nguyen on 01-12-2023 Hemoglobin (Bld) [Mass/Vol] 14.8 g/dL 13.0-16.5 [facility] Blood lymphocytes/100 leukoc ytesOrdered By: Dr. Nguyen on 01-12-2023 Lymphocytes/100 WBC (Bld) 11.5 % 19-41 [facility] Blood monocytes/100 leukocyt esOrdered By: Dr. Nguyen on 01-12-2023 Monocytes/100 WBC (Bld) 6.8 % 0-10 [facility] Blood platelet mean volumeOr dered By: Dr. Nguyen on 01-12-2023 Platelet mean volume (Bld) [Entitic vol] 9.5 fL 6.2-12.0 [facility] Determination of erythrocyte mean corpuscular volume (MCV)Ordered By: Dr. Nguyen on 01-12-2023 MCV (RBC) [Entitic vol] 83.7 fL 80-94 [facility] Hematocrit Auto (Bld) [Volum e fraction]Ordered By: Dr. Nguyen on 01-12-2023 Hematocrit (Bld) [Volume fraction] 44.2 % 40-54 [facility] Influenza virus A and B and SARS-CoV-2 (COVID-19) Ag panel - Upper respiratory specimOrdered By: Dr. Nguyen on 01-12-2023 SARS-CoV-2 (COVID-19) RNA JOSEFINA+probe Ql (Resp) [facility] Laboratory - Chemistry and C hemistry - challengeOrdered By: Dr. Nguyen on 01-12-2023 CO2 [Moles/Vol] 31.0 mmol/L 21.0-32.0 [facility] Urea nitrogen/Creatinine [Mass ratio] 22.2 mg/mg 10-20 [facility] Laboratory - Hematology and Cell countsOrdered By: Dr. Nguyen on 01-12-2023 Erythrocyte distribution width (RBC) [Entitic vol] 46.2 fL 35.1-43.9 [facility] Erythrocyte distribution width (RBC) [Ratio] 15.2 % 11.6-14.6 [facility] Immature granulocytes/100 WBC (Bld) 0.600 % 0.0-0.9 [facility] Comment on above: IG% - Immature Granu locytes (promyelocytes, myelocytes and metamyelocytes) > 1% indicates that a LEFT SHIFT is Present. MCH (RBC) [Entitic mass] 28.0 pg 27.0-32.0 [facility] Nucleated RBC/100 WBC (Bld) [Ratio] 0 % 0-5 [facility] MCHC Auto (RBC) [Mass/Vol]Or dered By: Dr. Nguyen on 01-12-2023 MCHC (RBC) [Mass/Vol] 33.5 g/dL 32-36 [facility] No Panel InformationOrdered By: Dr. Nguyen on 01-12-2023 Estimated Creatinine Clearance Calc 59.51 ml/min [facility] Estimated GFR (MDRD) Amer 93 mL/min >60 [facility] Comment on above: GFR Calc Estimated GFR (MDRD) Non-Af Amer 77 mL/min >60 [facility] Comment on above: Non- GFR Calc Platelets bldOrdered By: Dr. Nguyen on 01-12-2023 Platelets (Bld) [#/Vol] 257 10*3/uL 150-450 [facility] Serum or plasma calcium fredy urement (mass/volume)Ordered By: Dr. Nguyen on 01-12-2023 Calcium [Mass/Vol] 9.8 mg/dL 8.5-10.1 [facility] Serum or plasma creatinine m easurement (mass/volume)Ordered By: Dr. Nguyen on 01-12-2023 Creatinine [Mass/Vol] 0.99 mg/dL 0.70-1.30 [facility] Comment on above: The validity of the calculated GFR & GFRAA in patients over 70 years has not been determined. Clinical correlation is essential. Serum or plasma urea nitroge n measurement (mass/volume)Ordered By: Dr. Nguyen on 01-12-2023 Urea nitrogen [Mass/Vol] 22 mg/dL -18 [facility] Thin prep Papanicolaou smear with manual screeningOrdered By: Dr. Nguyen on 01-12-2023 Thin prep Papanicolaou smear with manual screening 3 - [facility] Laboratory - Microbiology an d Antimicrobial susceptibilityOrdered By: Dr. Lawrence on 08-11-2022 SARS-CoV-2 (COVID-19) RNA JOSEFINA+probe Ql (Unsp spec) Detected Not Detect [facility] Comment on above: Normal Reference Ran ge: Not DetectedMethod:(RT-PCR) real-time reverse transcriptase PCRLuminex ALBA Instrument*The Food and Drug Administration (FDA) has issued an Emergency Use Authorization (EAU) for the Made[employer] SARS-CoV-2 Assay for the rapid detection of the virus that causes COVID-19. This test has been validated, but the [facility] validation is [facility].*Negative results do not preclude infection and should not be used as the sole basis for treatment or patient management. Optimum specimen types and timing for peak viral levels during infections caused by SARS-CoV-2 have not been determined. Collection of multiple specimens from the same patient may be necessary to detect the virus. The possibility of a false negative result should be considered if the patient has clinical presentation or has had recent exposure. No Panel InformationOrdered By: Dr. Lawrence on 08-11-2022 Influenza Types A,B Direct FA (LEONELA) [facility] RSV Ag EIAOrdered By: Dr. Lulu harris on 08-11-2022 RSV Ag Immune stain Ql (Tiss) [facility] Absolute lymphocyte countOrd ered By: Dr. Lawrence on 08-03-2022 Lymphocytes Auto (Unsp spec) [#/Vol] 2.53 10*3/uL 0.83-4.51 [facility] Basophil percentageOrdered B y: Dr. Lawrence on 08-03-2022 Basophils/100 WBC (Bld) 0.7 % 0-1 [facility] Bilirubin [Mass/Vol] 0.40 mg/dL 0.20-1.00 [facility] Comment on above: For patients on eltr ombopag therapy, use of Dimension [place] TBIL is not recommended. Chloride [Moles/Vol] 104 mmol/L 98-107 [facility] Eosinophils/100 WBC (Bld) 3.3 % 0-5 [facility] Glucose [Mass/Vol] 102 mg/dL 74-106 [facility] Comment on above: Fasting Glucose resu lt from 100 to 125 mg/dL suggests IMPAIRED HOMEOSTASIS per A.D.A. criteria. Neutrophils (Bld) [#/Vol] 4.9 10*3/uL 2.0-7.7 [facility] Neutrophils/100 WBC (Bld) 58.1 % 47-70 [facility] Potassium [Moles/Vol] 3.7 mmol/L 3.5-5.1 [facility] Protein [Mass/Vol] 7.3 g/dL 6.4-8.2 [facility] Sodium [Moles/Vol] 138 mmol/L 136-145 [facility] WBC (Bld) [#/Vol] 8.5 10*3/uL 4.4-11.0 [facility] Blood erythrocytes count (nu mber/volume)Ordered By: Dr. Lawrence on 08-03-2022 RBC (Bld) [#/Vol] 4.75 10*6/uL 4.6-6.2 [facility] Blood hemoglobin measurement (mass/volume)Ordered By: Dr. Lawrence on 08-03-2022 Hemoglobin (Bld) [Mass/Vol] 13.2 g/dL 13.0-16.5 [facility] Blood lymphocytes/100 leukoc ytesOrdered By: Dr. Lawrence on 08-03-2022 Lymphocytes/100 WBC (Bld) 29.9 % 19-41 [facility] Blood monocytes/100 leukocyt esOrdered By: Dr. Lawrence on 08-03-2022 Monocytes/100 WBC (Bld) 6.9 % 0-10 [facility] Blood platelet mean volumeOr dered By: Dr. Lawrence on 08-03-2022 Platelet mean volume (Bld) [Entitic vol] 9.5 fL 6.2-12.0 [facility] Determination of erythrocyte mean corpuscular volume (MCV)Ordered By: Dr. Lawrence on 08-03-2022 MCV (RBC) [Entitic vol] 85.5 fL 80-94 [facility] Hematocrit Auto (Bld) [Volum e fraction]Ordered By: Dr. Lawrence on 08-03-2022 Hematocrit (Bld) [Volume fraction] 40.6 % 40-54 [facility] Laboratory - Chemistry and C hemistry - challengeOrdered By: Dr. Lawrence on 08-03-2022 ALP [Catalytic activity/Vol] 36 U/L 45-117 [facility] ALT [Catalytic activity/Vol] 54 U/L 16-61 [facility] CO2 [Moles/Vol] 32.0 mmol/L 21.0-32.0 [facility] Globulin (S) [Mass/Vol] 4.1 g/dL 2.2-4.2 [facility] Urea nitrogen/Creatinine [Mass ratio] 18.7 mg/mg 10-20 [facility] Laboratory - Hematology and Cell countsOrdered By: Dr. Lawrence on 08-03-2022 Erythrocyte distribution width (RBC) [Entitic vol] 47.1 fL 35.1-43.9 [facility] Erythrocyte distribution width (RBC) [Ratio] 15.2 % 11.6-14.6 [facility] Immature granulocytes/100 WBC (Bld) 1.100 % 0.0-0.9 [facility] Comment on above: IG% - Immature Granu locytes (promyelocytes, myelocytes and metamyelocytes) > 1% indicates that a LEFT SHIFT is Present. MCH (RBC) [Entitic mass] 27.8 pg 27.0-32.0 [facility] Nucleated RBC/100 WBC (Bld) [Ratio] 0 % 0-5 [facility] MCHC Auto (RBC) [Mass/Vol]Or dered By: Dr. Lawrence on 08-03-2022 MCHC (RBC) [Mass/Vol] 32.5 g/dL 32-36 [facility] No Panel InformationOrdered By: Dr. Lawrence on 08-03-2022 Estimated GFR (MDRD) Amer 96 mL/min >60 [facility] Comment on above: GFR Calc Estimated GFR (MDRD) Non-Af Amer 80 mL/min >60 [facility] Comment on above: Non- GFR Calc Thyroid Stimulating Hormone (TSH) 1.17 uIU/mL 0.358-3.74 [facility] Vitamin D 25-Hydroxy 50.0 ng/mL [facility] Comment on above: Vitamin D 25(OH) Sta tus Range Deficiency <20 ng/mL (50nmol/L) Insufficiency 20 - 30 ng/mL (50 - 75 nmol/L) Sufficiency 30 - 100 ng/mL (75 - 250 nmol/L) Toxicity >100 ng/mL (>250 nmol/L) Platelets bldOrdered By: Dr. Lawrence on 08-03-2022 Platelets (Bld) [#/Vol] 286 10*3/uL 150-450 [facility] Serum or plasma albumin fredy urement (mass/volume)Ordered By: Dr. Lawrence on 08-03-2022 Albumin [Mass/Vol] 3.2 g/dL 3.2-5.0 [facility] Serum or plasma albumin/glob ulin mass ratioOrdered By: Dr. Lawrence on 08-03-2022 Albumin/Globulin [Mass ratio] 0.8 {ratio} 0.9-2.4 [facility] Serum or plasma calcium fredy urement (mass/volume)Ordered By: Dr. Lawrence on 08-03-2022 Calcium [Mass/Vol] 9.3 mg/dL 8.5-10.1 [facility] Serum or plasma creatinine m easurement (mass/volume)Ordered By: Dr. Lawrence on 08-03-2022 Creatinine [Mass/Vol] 0.96 mg/dL 0.70-1.30 [facility] Comment on above: The validity of the calculated GFR & GFRAA in patients over 70 years has not been determined. Clinical correlation is essential. Serum or plasma urea nitroge n measurement (mass/volume)Ordered By: Dr. Lawrence on 08-03-2022 Urea nitrogen [Mass/Vol] 18 mg/dL 7-18 [facility] Thin prep Papanicolaou smear with manual screeningOrdered By: Dr. Lawrence on 08-03-2022 Thin prep Papanicolaou smear with manual screening 29 U/L 15-37 [facility] Thin prep Papanicolaou smear with manual screening 2 5-15 [facility] Laboratory - Microbiology an d Antimicrobial susceptibilityOrdered By: Dr. Lawrence on 07-27-2022 SARS-CoV-2 (COVID-19) RNA JOSEFINA+probe Ql (Unsp spec) Not detected Not Detect [facility] Comment on above: Normal Reference Ran ge: Not DetectedMethod:(RT-PCR) real-time reverse transcriptase PCRLuminex ALBA Instrument*The Food and Drug Administration (FDA) has issued an Emergency Use Authorization (EAU) for the ALBA SARS-CoV-2 Assay for the rapid detection of the virus that causes COVID-19. This test has been validated, but the FDAs independent review of this validation is pending.*Negative results do not preclude infection and should not be used as the sole basis for treatment or patient management. Optimum specimen types and timing for peak viral levels during infections caused by SARS-CoV-2 have not been determined. Collection of multiple specimens from the same patient may be necessary to detect the virus. The possibility of a false negative result should be considered if the patient has clinical presentation or has had recent exposure. No Panel InformationOrdered By: Dr. Lawrence on 07-27-2022 Influenza Types A,B Direct FA (LEONELA) [facility] RSV Ag EIAOrdered By: Dr. Lulu harris on 07-27-2022 RSV Ag Immune stain Ql (Tiss) [facility] Laboratory - Microbiology an d Antimicrobial susceptibilityon 07-25-2022 SARS-CoV-2 (COVID-19) RNA JOSEFINA+probe Ql (Unsp spec) Not detected [facility] No Panel Informationon 07-25 Influenza Types A,B Rapid (Clinic) Not detected [facility] No Panel Informationon 02-02 Hepatitis A Antibody Total See comment [facility] Work Phone: Comment on above: TEST RESULT LIMITSHe p A Ab, Total Positive Abnormal Negative TESTING PERFORMED AT [facility]. ORIGINAL REPORT ON FILE IN LAB CONTAINS ADDITIONAL TEST SITE INFORMATION. Hepatitis C Antibody Non-Reactive Nonreactive [facility] Work Phone: Comment on above: Non Reactive: < 0.8 Equivocal: >/= 0.8 to < 1.0 Reactive: >/= 1.0The CDC recommends that a reactive/equivocal HCV antibody result be followed up by the HCV Nucleic Acid Amplificationtest (032654) Serum hepatitis B virus surf vasiliy antibody IgG detectionon 02-02-2022 HBV surface IgG Ql (S) Reactive [facility] Work Phone: Comment on above: Non Reactive: Incons istent with immunity less than <10 mIU/mL Reactive: Consistent with immunity greater than or equal to 10 mIU/mL Absolute lymphocyte counton 01-27-2022 Lymphocytes Auto (Unsp spec) [#/Vol] 2.07 10*3/uL 0.83-4.51 [facility] Work Phone: Basophil percentageon 2021 Basophils/100 WBC (Bld) 0.7 % 0-1 [facility] Work Phone: Bilirubin [Mass/Vol] 0.40 mg/dL 0.20-1.00 [facility] Work Phone: Comment on above: For patients on eltr ombopag therapy, use of Dimension [place] TBIL is not recommended. Chloride [Moles/Vol] 104 mmol/L 98-107 [facility] Work Phone: Eosinophils/100 WBC (Bld) 2.9 % 0-5 [facility] Work Phone: Glucose [Mass/Vol] 105 mg/dL 74-106 [facility] Work Phone: [phone] Comment on above: Fasting Glucose resu lt from 100 to 125 mg/dL suggests IMPAIRED HOMEOSTASIS per A.D.A. criteria. Neutrophils (Bld) [#/Vol] 2.7 10*3/uL 2.0-7.7 [facility] Work Phone: Neutrophils/100 WBC (Bld) 49.1 % 47-70 [facility] Work Phone: Potassium [Moles/Vol] 3.5 mmol/L 3.5-5.1 [facility] Work Phone: Protein [Mass/Vol] 7.2 g/dL 6.4-8.2 [facility] Work Phone: Sodium [Moles/Vol] 140 mmol/L 136-145 [facility] Work Phone: WBC (Bld) [#/Vol] 5.6 10*3/uL 4.4-11.0 [facility] Work Phone: [phone] Blood erythrocytes count (nu mber/volume)on 01-27-2022 RBC (Bld) [#/Vol] 4.75 10*6/uL 4.6-6.2 [facility] Work Phone: Blood hemoglobin measurement (mass/volume)on 01-27-2022 Hemoglobin (Bld) [Mass/Vol] 13.4 g/dL 13.0-16.5 [facility] Work Phone: Blood lymphocytes/100 leukoc yteson 01-27-2022 Lymphocytes/100 WBC (Bld) 37.1 % 19-41 [facility] Work Phone: Blood monocytes/100 leukocyt eson 01-27-2022 Monocytes/100 WBC (Bld) 10.0 % 0-10 [facility] Work Phone: Blood platelet mean volumeon 01-27-2022 Platelet mean volume (Bld) [Entitic vol] 9.7 fL 6.2-12.0 [facility] Work Phone: Determination of erythrocyte mean corpuscular volume (MCV)on 01-27-2022 MCV (RBC) [Entitic vol] 86.3 fL 80-94 [facility] Work Phone: Hematocrit Auto (Bld) [Volum e fraction]on 01-27-2022 Hematocrit (Bld) [Volume fraction] 41.0 % 40-54 [facility] Work Phone: Laboratory - Chemistry and C hemistry - challengeon 01-27-2022 ALP [Catalytic activity/Vol] 37 U/L 45-117 [facility] Work Phone: ALT [Catalytic activity/Vol] 50 U/L 16-61 [facility] Work Phone: CO2 [Moles/Vol] 29.0 mmol/L 21.0-32.0 [facility] Work Phone: Globulin (S) [Mass/Vol] 3.7 g/dL 2.2-4.2 [facility] Work Phone: Urea nitrogen/Creatinine [Mass ratio] 24.3 mg/mg 10-20 [facility] Work Phone: Laboratory - Hematology and Cell countson 01-27-2022 Erythrocyte distribution width (RBC) [Entitic vol] 46.4 fL 35.1-43.9 [facility] Work Phone: Erythrocyte distribution width (RBC) [Ratio] 14.6 % 11.6-14.6 [facility] Work Phone: Immature granulocytes/100 WBC (Bld) 0.200 % 0.0-0.9 [facility] Work Phone: Comment on above: IG% - Immature Granu locytes (promyelocytes, myelocytes and metamyelocytes) > 1% indicates that a LEFT SHIFT is Present. MCH (RBC) [Entitic mass] 28.2 pg 27.0-32.0 [facility] Work Phone: Nucleated RBC/100 WBC (Bld) [Ratio] 0 % 0-5 [facility] Work Phone: MCHC Auto (RBC) [Mass/Vol]on 01-27-2022 MCHC (RBC) [Mass/Vol] 32.7 g/dL 32-36 [facility] Work Phone: No Panel Informationon 01-27 Estimated GFR (MDRD) Amer 86 mL/min >60 [facility] Work Phone: Comment on above: GFR Calc Estimated GFR (MDRD) Non-Af Amer 71 mL/min >60 [facility] Work Phone: Comment on above: Non- GFR Calc Thyroid Stimulating Hormone (TSH) 1.54 uIU/mL 0.358-3.74 [facility] Work Phone: Vitamin D 25-Hydroxy 52.5 ng/mL [facility] Work Phone: Comment on above: Vitamin D 25(OH) Sta tus Range Deficiency <20 ng/mL (50nmol/L) Insufficiency 20 - 30 ng/mL (50 - 75 nmol/L) Sufficiency 30 - 100 ng/mL (75 - 250 nmol/L) Toxicity >100 ng/mL (>250 nmol/L) Platelets bldon 01-27-2022 Platelets (Bld) [#/Vol] 239 10*3/uL 150-450 [facility] Work Phone: Serum or plasma albumin fredy urement (mass/volume)on 01-27-2022 Albumin [Mass/Vol] 3.5 g/dL 3.2-5.0 [facility] Work Phone: Serum or plasma albumin/glob ulin mass ratioon 01-27-2022 Albumin/Globulin [Mass ratio] 0.9 {ratio} 0.9-2.4 [facility] Work Phone: Serum or plasma calcium fredy urement (mass/volume)on 01-27-2022 Calcium [Mass/Vol] 9.4 mg/dL 8.5-10.1 [facility] Work Phone: Serum or plasma creatinine m easurement (mass/volume)on 01-27-2022 Creatinine [Mass/Vol] 1.07 mg/dL 0.70-1.30 [facility] Work Phone: Comment on above: The validity of the calculated GFR & GFRAA in patients over 70 years has not been determined. Clinical correlation is essential. Serum or plasma urea nitroge n measurement (mass/volume)on 01-27-2022 Urea nitrogen [Mass/Vol] 26 mg/dL 7-18 [facility] Work Phone: Thin prep Papanicolaou smear with manual screeningon 01-27-2022 Thin prep Papanicolaou smear with manual screening 45 U/L 15-37 [facility] Work Phone: Thin prep Papanicolaou smear with manual screening 7 5-15 [facility] Work Phone: No Panel Information Influenza Types A,B Direct FA (LEONELA) [facility] Work Phone: Vital Signs Date Time Vital Sign Value Performing Clinician Faci lity 07-06-2025 11:26-0400 Body temperature 98.3 [degF] Dr. Thomas Bernard MD Work Phone: [facility] 07-06-2025 11:26-0400 Diastolic blood pressure 78 mm[Hg] Dr. Thomas Bernard MD Work Phone: [facility] 07-06-2025 11:26-0400 Heart rate 88 /min Dr. Thomas Bernard MD Work Phone: [facility] 07-06-2025 11:26-0400 Respiratory rate 16 /min Dr. Thomas Bernard MD Work Phone: [facility] 07-06-2025 11:26-0400 SaO2% (BldA) [Mass fraction] 96 % Dr. Thomas Bernard MD Work Phone: [facility] 07-06-2025 11:26-0400 Systolic blood pressure 152 mm[Hg] Dr. Thomas Bernard MD Work Phone: [facility] 01-22-2025 11:28-0400 Diastolic blood pressure 88 mm[Hg] Dr. Zhang Lawrence MD Work Phone: [facility] 01-22-2025 11:28-0400 Systolic blood pressure 152 mm[Hg] Dr. Zhang Lawrence MD Work Phone: [facility] 01-22-2025 08:58-0400 Body mass index (BMI) [Ratio] 35.7 kg/m2 Dr. Zhang Lawrence MD Work Phone: [facility] 01-22-2025 08:58-0400 Body weight 109.[address] Zhang Lawrence MD Work Phone: [facility] 01-22-2025 08:58-0400 Heart rate 65 /min Dr. Zhang Lawrence MD Work Phone: [facility] 01-22-2025 08:58-0400 Respiratory rate 18 /min Dr. Zhang Lawrence MD Work Phone: [facility] 01-22-2025 08:58-0400 SaO2% (BldA) [Mass fraction] 93 % Dr. Zhang Lawrence MD Work Phone: [facility] 11-25-2024 07:00-0500 Body temperature 98.2 [degF] Dr. Zhang Lawrence MD Work Phone: 0(927)048-031907 [place] [address] 11-25-2024 07:00-0500 Diastolic blood pressure 93 mm[Hg] Dr. Zhang Lawrence MD Work Phone: 6(580)921-364507 [place] [address] 11-25-2024 07:00-0500 Heart rate 85 /min Dr. Zhang Lawrence MD Work Phone: 8(989)992-290207 [place] [address] 11-25-2024 07:00-0500 Respiratory rate 18 /min Dr. Zhang Lawrence MD Work Phone: 2(554)360-689549 [place] [address] 11-25-2024 07:00-0500 SaO2% (BldA) [Mass fraction] 95 % Dr. Zhang Lawrence MD Work Phone: 4(805)381-007749 [place] [address] 11-25-2024 07:00-0500 Systolic blood pressure 157 mm[Hg] Dr. Zhang Lawrence MD Work Phone: 7(132)078-430049 [place] [address] 11-25-2024 04:58-0500 Body height 175.[address] Zhang Lawrence MD Work Phone: 0(882)836-664549 [place] [address] 11-25-2024 04:58-0500 Body mass index (BMI) [Ratio] 34.3 kg/m2 Dr. Zhang Lawrence MD Work Phone: 6(766)635-914349 [place] [address] 11-25-2024 04:58-0500 Body weight 105.[address] Zhang Lawrence MD Work Phone: 9(373)890-671349 [place] [address] 07-23-2023 13:28-0400 Body height 175.[address] Zhang Lawrence Work Phone: 6(208)584-957149 [place] [address] 07-23-2023 13:28-0400 Body mass index (BMI) [Ratio] 34.7 kg/m2 Dr. Zhang Lawrence Work Phone: 9(074)198-059907 [place] [address] 07-23-2023 13:28-0400 Body weight 106.[address] Zhang Lawrence Work Phone: 8(697)752-594849 [place] [address] 07-23-2023 13:28-0400 Diastolic blood pressure 87 mm[Hg] Dr. Zhang Lawrence Work Phone: [facility] 07-23-2023 13:28-0400 Heart rate 73 /min Dr. Zhang Lawrence Work Phone: [facility] 07-23-2023 13:28-0400 Respiratory rate 16 /min Dr. Zhang Lawrence Work Phone: [facility] 07-23-2023 13:28-0400 Systolic blood pressure 160 mm[Hg] Dr. Zhang Lawrence Work Phone: [facility] 01-12-2023 17:56-0400 Diastolic blood pressure 79 mm[Hg] Dr. Zhang Lawrence Work Phone: 4(218)736-021607 [place] [address] 01-12-2023 17:56-0400 Heart rate 62 /min Dr. Zhang Lawrence Work Phone: 3(521)856-704594 [address] 01-12-2023 17:56-0400 Respiratory rate 17 /min Dr. Zhang Lawrence Work Phone: [facility] 01-12-2023 17:56-0400 SaO2% (BldA) [Mass fraction] 98 % Dr. Zhang Lawrence Work Phone: 9(745)947-106207 [place] [address] 01-12-2023 17:56-0400 Systolic blood pressure 141 mm[Hg] Dr. Zhang Lawrence Work Phone: 5(189)919-131007 [place] [address] 01-12-2023 17:04-0400 Body temperature 98.5 [degF] Dr. Zhang Lawrence Work Phone: [facility] 01-12-2023 12:50-0400 Body height 175.[address] Zhang Lawrence Work Phone: 1(736)368-128207 [place] [address] 01-12-2023 12:50-0400 Body mass index (BMI) [Ratio] 33.3 kg/m2 Dr. Zhang Lawrence Work Phone: [facility] 01-12-2023 12:50-0400 Body weight 102.[address] Zhang Lawrence Work Phone: 0(757)823-588007 [place] [address] 12-19-2022 16:53-0400 Body height 175.[address] Zhang Lawrence Work Phone: [facility] 12-19-2022 16:53-0400 Body mass index (BMI) [Ratio] 34.2 kg/m2 Dr. Zhang Lawrence Work Phone: [facility] 12-19-2022 16:53-0400 Body temperature 98 [degF] Dr. Zhang Lawrence Work Phone: [facility] 12-19-2022 16:53-0400 Body weight [address] Zhang Lawrence Work Phone: [facility] 12-19-2022 16:53-0400 Diastolic blood pressure 84 mm[Hg] Dr. Zhang Lawrence Work Phone: [facility] 12-19-2022 16:53-0400 Respiratory rate 15 /min Dr. Zhang Lawrence Work Phone: [facility] 12-19-2022 16:53-0400 SaO2% (BldA) [Mass fraction] 98 % Dr. Zhang Lawrence Work Phone: [facility] 12-19-2022 16:53-0400 Systolic blood pressure 132 mm[Hg] Dr. Zhang Lawrence Work Phone: [facility] 12-19-2022 16:06-0400 Heart rate 96 /min Dr. Zhang Lawrence Work Phone: [facility] 10-09-2022 14:16-0500 Body height 175.[address] Zhang Lawrence Work Phone: [facility] 10-09-2022 14:16-0500 Body mass index (BMI) [Ratio] 34.2 kg/m2 Dr. Zhang Lawrence Work Phone: [facility] 10-09-2022 14:16-0500 Body weight 105.[address] Zhang Lawrence Work Phone: [facility] 10-09-2022 14:16-0500 Diastolic blood pressure 88 mm[Hg] Dr. Zhang Lawrence Work Phone: [facility] 10-09-2022 14:16-0500 Heart rate 88 /min Dr. Zhang Lawrence Work Phone: [facility] 10-09-2022 14:16-0500 Respiratory rate 18 /min Dr. Zhang Lawrence Work Phone: [facility] 10-09-2022 14:16-0500 Systolic blood pressure 158 mm[Hg] Dr. Zhang Lawrence Work Phone: [facility] 07-25-2022 11:00-0400 Body temperature 98.9 [degF] Dr. Zhang Lawrence Work Phone: [facility] 07-25-2022 11:00-0400 Diastolic blood pressure 98 mm[Hg] Dr. Zhang Lawrence Work Phone: [facility] 07-25-2022 11:00-0400 Heart rate 102 /min Dr. Zhang Lawrence Work Phone: [facility] 07-25-2022 11:00-0400 Respiratory rate 16 /min Dr. Zhang Lawrence Work Phone: [facility] 07-25-2022 11:00-0400 SaO2% (BldA) [Mass fraction] 97 % Dr. Zhang Lawrence Work Phone: [facility] 07-25-2022 11:00-0400 Systolic blood pressure 177 mm[Hg] Dr. Zhang Lawrence Work Phone: [facility] Encounters Encounter Date Encounter Type Care Provider Facility Start: 07-06-2025 End: 07-06-2025 Patient encounter procedure Michael PEREZ -[facility] Work Phone: Start: 07-06-2025 End: 07-06-2025 ambulatory Michael PEREZ Facility:[facility] Start: 03-27-2025 End: 03-27-[address] Zhang Lawrence MD Work Phone: [facility] Start: 03-27-2025 End: 03-27-[address] Thomas Bernard MD -[facility] [place] Work Phone: Start: 03-27-2025 End: 03-27-2025 ambulatory Thomas Bernard Facility:[facility] Start: 01-22-2025 End: 01-22-2025 Patient encounter procedure Iwona Mireles [facility] -[facility] Work Phone: Start: 01-22-2025 End: 01-22-2025 ambulatory Iwona Mireles [employer] [employer] [facility] Facility:[facility] Start: 11-30-2024 End: 11-30-[address] Zhang Lawrence MD Work Phone: [facility] Work Phone: Start: 11-30-2024 End: 11-30-2024 Patient encounter procedure Sakshi Tjeeda [facility] -Radiology, [place] Work Phone: Start: 11-30-2024 End: 11-30-2024 ambulatory Sakshi Tejeda [employer] Facility:[facility] Start: 11-25-2024 End: 11-25-2024 Emergency department patient visit Dr. Viral Miller MD -Emergency Department Work Phone: Start: 09-21-2024 End: 09-21-[address] [facility] Start: 09-21-2024 End: 09-21-2024 ambulatory Thomas Bernard Facility:[facility] Start: 08-18-2024 End: 08-18-2024 Patient encounter procedure Iwona Mireles [facility] [employer] [facility] -Laboratory Work Phone: Start: 08-18-2024 End: 08-18-2024 ambulatory Iwona Mireles [employer] Facility:[facility] Start: 07-24-2024 End: 07-24-2024 ambulatory Iwona Mireles [employer] Facility:[facility] Start: 08-25-2023 End: 08-25-[address] Zhang Lawrence Work Phone: [facility] Work Phone: Start: 08-25-2023 End: 08-25-[address] Zhang Lawrence Work Phone: [facility]-Laboratory, Phy Office 3rd Flr Start: 07-23-2023 End: 07-23-[address] Zhang Lawrence Work Phone: [facility] Work Phone: Start: 2023 Non-patient / Non-visit Dr. Meet Lawrence Work Phone: [facility] Start: 2023 End: [address] Zhang Lawrence Work Phone: [facility] Work Phone: Start: 2023 End: [address] [facility] Start: 02-26-2023 Non-patient / Non-visit Dr. Meet Lawrence Work Phone: [facility] Start: 02-26-2023 End: 02-26-[address] Zhang Lawrence Work Phone: [facility] Work Phone: Start: 02-26-2023 End: 02-26-[address] [facility] Lawrence [facility] Start: 01-27-2023 End: 01-27-[address] Zhang Lawrence Work Phone: [facility] Work Phone: Start: 01-27-2023 End: 01-27-[address] Zhang Lawrence Work Phone: [facility]-Laboratory Start: 01-12-2023 End: 01-12-2023 Emergency department patient visit Dr. Zhang Lawrence Work Phone: [facility]-Emergency Department Start: 12-19-2022 End: 12-19-2022 Emergency department patient visit Dr. Zhang Lawrence Work Phone: [facility]-Emergency Department Start: 10-21-2022 End: 10-21-[address] Zhang Lawrence Work Phone: [facility] Work Phone: Start: 10-21-2022 End: 10-21-[address] Zhang Lawrence Work Phone: [facility]-Pulmonary Services/Neurology Start: 10-09-2022 End: 10-09-[address] Zhang Lawrence Work Phone: [facility] Start: 08-11-2022 End: 08-11-[address] Zhang Lawrence Work Phone: [facility] Work Phone: Start: 08-11-2022 End: 08-11-[address] Zhang Lawrence [facility] Start: 08-03-2022 End: 08-03-[address] Zhang Lawrence Work Phone: [facility] Work Phone: Start: 08-03-2022 End: 08-03-[address] Zhang Lawrence Work Phone: [facility]-Laboratory, Phy Office [address] [place] [address] Start: 07-27-2022 End: 07-27-[address] Zhang Lawrence Work Phone: [facility] Work Phone: Start: 07-27-2022 End: 07-27-[address] Zhang Lawrence [facility] Start: 07-25-2022 End: 07-25-[address] Zhang Lawrence Work Phone: [facility] Start: 02-04-2022 End: 02-04-2022 Patient encounter procedure [facility], [facility] Start: 02-02-2022 End: 02-02-2022 Patient encounter procedure [facility]-Laboratory, Phy Office 3rd Flr Start: 01-27-2022 End: 01-27-2022 Patient encounter procedure [facility]-Laboratory, y Office 3rd Flr Start: 04-27-2018 Patient encounter CHRISTOPHER ARELLANO Facil ity:B Start: 04-18-2018 End: 04-19-2018 Patient encounter CHRISTOPHER ARELLANO Facility:[facility] Procedures Date Procedure Procedure Detail Performing Clinician Start: 03-27-2025 Vitamin D, 25-hydrox y measurement Dr. Zhang Lawrence MD Work Phone: Comment on above: Vitamin D StatusDefi ciency: <20 ng/mL (50nmol/L)Insufficiency: 20-30 ng/mL (50-75 nmol/L)Sufficiency: 30-100 ng/mL (75-250 nmol/L)Toxicity: >100 ng/mL (>250 nmol/L) Start: 11-30-2024 X-ray of chest, PA a nd lateral views Dr. Zhang Lawrence MD Work Phone: Start: 11-25-2024 SARS-CoV-2, Influenz a & RSV (PCR) Dr. Zhang Lawrence MD Work Phone: Start: 11-25-2024 X-ray of chest, PA a nd lateral views Dr. Zhang Lawrence MD Work Phone: Start: 01-12-2023 Plain chest X-ray Dr. Moyn Lawrence Work Phone: Start: 02-04-2022 Ultrasonography of abdomen Influenza Types A,B Direct FA (LEONELA) Dr. Zhang Lawrence Work Phone: Influenza Types A,B Direct FA (LEONELA) Dr. Zhang Lawrence Work Phone: Influenza Types A,B Direct FA (LEONELA) Dr. Zhang Lawrence Work Phone: Respiratory syncytia l virus antigen assay Dr. Zhang Lawrence Work Phone: Respiratory syncytia l virus antigen assay Dr. Zhang Lawrence Work Phone: Respiratory syncytia l virus antigen assay Dr. Zhang Lawrence Work Phone: SARS-CoV-2 & FLU Ant igen (Rapid) Dr. Zhang Lawrence Work Phone: Plan of Treatment Date Care Activity Detail Author Start: 11-25-2024 [facility] Patient Education [facility] Work Phone: Patient referral [facility] Work Phone: [facility] Immunizations Immunization Date Immunization Notes Care Provider Fa cility 12-19-2022 tetanus toxoid, redu luma diphtheria toxoid, and acellular pertussis vaccine, adsorbed Dr. Zhang Lawrence Work Phone: [facility] 12-11-2020 [facility] ([facility]) [facility] 11-13-2020 [facility] ([facility] 06-27-2018 Influenza virus vaccine [facility] Payers Date Payer Category Payer Self-pay [id number] 2007 Medicare [id number] Medicare [id number] 05e [id number] Unknown [id number] 2.16.8 [id number] Unknown [id number] 2.16.8 [id number] Unknown [id number] 2.16.8 [id number] Unknown [id number] 2.16.8 [id number] Unknown [id number] 2.16.8 [id number] Unknown [id number] 2.16.8 [id number] Unknown [id number] 2.16.8 [id number] Unknown [id number] 2.16.8 [id number] Social History Date Type Detail Facility Start: 07-25-2021 End: 07-23-2023 Tobacco smoking status NHIS Unknown if ever smoked [facility] Start: 03-03-2019 Non-smoker [facility] Start: 1940 Sex Assigned At Male [facility] Start: 11-25-2024 Tobacco smoking stat us NHIS Ex-smoker (finding) [facility] Start: 12-12-2024 Sex Male (finding) [facility] Sex Male [facility] Mental Status Date Assessment Result Facility 01-12-2023 Cognitive function Level Of Cons ciousness Awake;Alert;Appropriate;Follow s Commands [facility] Work Phone: Clinical Notes 11-30-2024 to 07-06-2025 Note Date & Type Note Facility 07-06-2025 Progress note [facility] 01-22-2025 Evaluation note Diagnosis Onset Date Resolution Essential hypertension chronic Ap 2024 10:43am Nonrheumatic aortic (valve) stenosis chronic January 22 10:43am [facility] Work Phone: 1(977) 904-639403-06-2025 Radiology Diagnostic study note [facility] Imaging Services [address] [place], [place] [address] Chest PA and Lateral MR#: [id number] Acct: [id number] Name: ALEXANDER PETIT Rep #: [id number] : [id number] M [id number] From: Rico Allen MD PCP: Dr. Thomas Bernard MD Status: REG CLI Study:Chest PA and Lateral Date of Exam: 11/30/24 Exam# [id number] Ordering Dr: Sakshi Tejeda NP [facility] PROCEDURE: CHEST PA AND LATERAL REASON FOR EXAM: Chest congestion. TECHNIQUE: Frontal and lateral views of the chest. COMPARISON: Comparison is made with prior study dated November 25, 2024. FINDINGS: The heart is not enlarged. Hyperinflation. No acute abnormality is seen. Degenerative changes of the dorsal spine as well as the right shoulder. Tortuosity of the descending thoracic aorta. RAD/Chest PA and Lateral IMPRESSION: Hyperinflation. No acute abnormality is seen. Reading Location: [id number] CC: Sakshi Tejeda; Dr. Thomas Bernard MD ~ Tomato Paste Maker: Signed [facility] note[facility] assessment information available [facility] Work Phone: Evaluation note* Diagnosis Onset Date Resolution Status Acute bacterial sinusitis ac [place] [facility] Work Phone: Evaluation note* Diagnosis Onset Date Resolution Status Acute bacterial sinusitis ac [place] Essential hypertension chron ic Nonrheumatic aortic (valve) stenosis chronic Premature ventricular contraction chronic VSD (ventricular septal defect) chronic [facility] Work Phone: Evaluation note* Diagnosis Onset Date Resolution Status Essential hypertension chron ic Nonrheumatic aortic (valve) stenosis chronic Premature ventricular contraction chronic VSD (ventricular septal defect) chronic [facility] Work Phone: Evaluation note* Diagnosis Onset Date Resolution Status Essential hypertension chron ic Nonrheumatic aortic (valve) stenosis chronic [facility] Work Phone: Evaluation note* Diagnosis Onset Date Resolution Status Admit Date Acute upper respiratory infection acute July 06 11:21am [facility] Work Phone: Progress note Author Michael Villasenor [facility] Note Date/Time July 06, 2025 1 1:46am [facility] [address], [address] [place] [address] OFFICE VISIT Date of Service: 07/06/25 MR#: [id number] Acct: [id number] Name: ALEXANDER PETIT Rep #: [id number] : 1940 Provider: CHRIS Velazco Age/Sex: 85/M Location: [email or web address] Status: Signed Intake Vital Signs 01/22/25 08:58 07/06/25 11:26 Height 5 ft 9 in Weight: 242 lb BMI 35.7 BP 176/104 H 152/78 H Blood Pressure Location Lt brachial Lt brachial Position Sitting Sitting Respiration 18 16 Pulse 65 88 Pulse Source Monitor NIBP Temp 98.3 F Temp Source Oral Pulse Oximetry (%) 93 96 Oxygen Delivery Method room air Intake Visit Reasons: RUNNY NOSE, FATIGUE Chief Complaint: RN, throat, fatigue, BA Professional Athlete Required: No Is patient in pain?: No Allergies prednisone Adverse Reaction (Verified 07/06/25 11:27) ORAL THRUSH Have you fallen in the past year?: No Nurse's Note: RN, scratchy throat, fatigue, BA since last night. denies fever, MARIE, cough PFSH Medical History Premature ventricular contraction GERD (gastroesophageal reflux disease) BPH (benign prostatic hyperplasia) VSD (ventricular septal defect) Nonrheumatic aortic (valve) stenosis Essential hypertension Surgical History History of bilateral cataract extraction History of rotator cuff surgery S/P TURP (status post transurethral resection of prostate) History of left heart catheterization (LHC) (~02/28/02) History of tonsillectomy and adenoidectomy History of transurethral resection of prostate Family History Father CAD (coronary artery disease) Hypertension Mother CVA (cerebral vascular accident) Social History Smoking Status: Former smoker alcohol intake: never substance use type: does not use caffeine: Yes Type: coffee Number of servings: 4 HPI HPI Chief Complaint: RN, throat, fatigue, BA Details: ALEXANDER PETIT, is a 85 M who presents to the office today for complaint of runny nose, sore throat, fatigue starting last night. Patient states that his sore throat is minimal along with his cough. He denies hemoptysis, shortness ofbreath or difficulty breathing. No nausea, vomiting or diarrhea. No loss of taste or smell. Patient states wanting to make sure he does not have COVID or influenza as he is going to a tomorrow. No other associated symptoms oralleviating/aggravating factors. ROS Const Constitutional: Positive for other (ROS negative x 6 except what is described above) Exam Const General: cooperative and well developed HENMT Head: normal to inspection and atraumatic Ears: hearing grossly normal bilaterally Nose: nasal discharge clear Face and sinus: normal facial exam Mouth: oral mucosae normal Throat: abnormal tonsil bilaterally hypertrophy 1+ Resp Effort & Inspection: normal respiratory effort and no audible wheezes Auscultation: Bilateral: Clear to Auscultation Cardio Palpation: normal PMI Rate: regular rate Rhythm: regular rhythm Neuro General: patient alert and CN's II-XI intact bilaterally Psych Appearance: grossly normal Mental Status: mental status grossly normal Results POC SARS AG POC SARS AG Negative Last Edit by Anu Foster on 07/06/25 11:36 POC FLU A & B Office Flu A&B Negative FLU A&B Last Edit by Anu Foster on 07/06/25 11: 36 Coding Level of Care Code Off vis,new,level 3 Diagnoses Acute upper respiratory infection J06.9 Assessment and Plan Assessment and Plan (1) Acute upper respiratory infection: Status: Acute Plan: Patient tested negative for COVID and influenza in the office today. Encouragedto get plenty of rest, drink lots of clear liquids, and use Tylenol or Ibuprofen(unless contraindicated) for fever and comfort. Patient also educated on other symptomatic management techniques. To be seen in 7-10 days if no improvement; sooner if worsening of symptoms. Patient advised of potential red flags and when appropriate to report to the ED. Patient verbalized understanding and agreement with all the above. Orders: Orders POC FLU A & B Today R53.83 - Other fatigue POC Rapid SARS Antigen Today Medications: New benzonatate 200 mg (2 x 100 mg) PO TID PRN 30 caps 0RF cough ipratropium bromide administer into each nostril 2 sprays intranasal BID-TID PRN 30 mL 0RF postnasal drainage Clinical Quality Measures Falls Risk Screening/Assistive Devices Have you fallen in the past year?: No 07/06/25 1542 <Electronically signed by Michael PEREZ> Date _ Michael Cuellar Signature: Date (if applicable) CC: ~ [facility] Work Phone: Reason for referral (narrative)No reason for referral information availableWLouis [facility] Work Phone: Summary Purpose Family History Relationship Condition Age at Onset Recorded Date/T connie father Coronary artery disease Unknown Hypertension Unknown mother Cerebrovascular accident (CVA) Unknown Advance Directives Advance Directive Response Recorded Date/ Time Advance Directives Yes July 3:20pm Living Will No March 30, 2019 1 1:05pm Power of Kaiako [place] No March 30, 2019 11:05pm Advance Directive Response Recorded Date/ Time Advance Directives Yes July 2:20pm Living Will No March 30, 2019 1 0:05pm Power of [place]ako [place] No March 30, 2019 10:05pm Advance Directive Response Recorded Date/ Time Advance Directives Yes July 3:20pm Living Will No December 19, 2022 5:55pm Power of [place]ako [place] No December 19 5:55pm Advance Directive Response Recorded Date/ Time Advance Directives Yes July 3:20pm Living Will No January 12, 2023 2:42pm Power of [place]ako [place] No January 12 2:42pm Advance Directive Response Recorded Date/ Time Advance Directives Yes July 2:20pm Living Will No January 12, 2023 1:42pm Power of [place]ako [place] No January 12 1:42pm Advance Directive Response Recorded Date/ Time Living Will Yes November 25, 2024 5:59am Power of [place]ako [place] Yes November 25 5:59am Name of Medical Power of [place]ako [place] Sybil Petit November 25, 2024 5:59am Advance Directives Yes July 3:20pm Advance Directive Response Recorded Date/ Time Living Will No January 12, 2023 2:42pm Do you have a Healthcare Power of Kaiako K[place]? No January 12, 2023 2:42pm Advance Directives Yes July 3:20pm Advance Directive Response Recorded Date/ Time Advance Directives Yes July 3:20pm Chief Complaint and Reason for Visit Chief Complaint LIVER ENZYMES ABN Chief Complaint COUGH,SORE THROAT Reason for Visit Acute bacterial sinu sitis Chief Complaint COUGH,SORE THROAT CHILLS WITHOUT FEVER Reason for Visit Acute bacterial sinu sitis Chief Complaint COUGH,SORE THROAT CHILLS WITHOUT FEVER Irregular pulse at [facility] VENTRICULAR PREMATURE DEPOLARIZATION Reason for Visit Acute bacterial sinu sitis Essential hypertension Nonrheumatic aortic (valve) stenosis Premature ventricular contraction VSD (ventricular septal defect) Chief Complaint Irregular pulse at [facility] VENTRICULAR PREMATURE DEPOLARIZATION dog bite Reason for Visit Essential hypertensi on Nonrheumatic aortic (valve) stenosis Premature ventricular contraction VSD (ventricular septal defect) Chief Complaint Irregular pulse at [facility] VENTRICULAR PREMATURE DEPOLARIZATION dog bite GENERAL ILLNESS Reason for Visit Essential hypertensi on Nonrheumatic aortic (valve) stenosis Premature ventricular contraction VSD (ventricular septal defect) Chief Complaint dog bite GENERAL ILLNESS MURMUR Chief Complaint dog bite GENERAL ILLNESS MURMUR I71.40 Chief Complaint 1 y fu PREV PFM PT Reason for Visit Essential hypertensi on Nonrheumatic aortic (valve) stenosis Chief Complaint Admit Date INT LABS August 18, 2024 12:39pm n/v November 25, 2024 4:57 am Chief Complaint Admit Date 6 M FU January 22, 2025 10: 43am EORDERS March 27, 2025 10:55 am Reason for Visit Admit Date Essential hypertension January 22, 2025 10:43am Nonrheumatic aortic (valve) stenosis Apr 2024 10:43am Chief Complaint Admit Date EORDERS March 27, 2025 10:55 am RUNNY NOSE, FATIGUE July 06, 2025 1 1:21am Reason for Visit Admit Date Acute upper respiratory infection Octobe r 2024 11:21am Additional Source Comments (unrecognized sect ion and content) No Status Records FoundNo Status Records Found INFORMATION SOURCE (unrecogn ized section and content) DATE CREATED AUTHOR 04/27/2018 [facility] ([place]) DATE CREATED AUTHOR AUTHOR'S ORGANIZ ATION 07/08/2025 [facility] Goals (unrecognized section and content) Goals may be documented in a n alternate sectionGoals may be documented in an alternate sectionGoals may be documented in an alternate sectionGoals may be documented in an alternate sectionGoals may be documented in an alternate sectionGoals may be documented in an alternate sectionGoals may be documented in an alternate sectionGoals may be documented in an alternate sectionGoals may be documented in an alternate sectionGoals may be documented in an alternate sectionGoals may be documented in an alternate sectionGoals may be documented in an alternate sectionGoals may be documented in an alternate section Care Teams (unrecognized sec tion and content) Team Status: Active Member Role Status Dates Dr. Zhang Lawrence MD Family Provider Active Dr. Zhang Lawrence MD Primary Care Provider Active Team Status: Inactive Member Role Status Dates Dr. Zhang Lawrence MD Primary Care Provider, Referring Provider Active Chayo Batista PA, PA Attending Provider Active Team Status: Inactive Member Role Status Dates Dr. Zhang Lawrence MD Primary Care Provider, Referring Provider Active Dr. Theron Dickinson MD Attending Provider Active Team Status: Inactive Member Role Status Dates Dr. Zhang Lawrence MD Primary Care Provi errol, Attending Provider, Referring Provider Active Team Status: Inactive Member Role Status Dates Dr. Zhang Lawrence MD Primary Care Provider, Attending Provider Active Team Status: Inactive Member Role Status Dates Dr. Zhang Lawrence MD Primary Care Provider Active Dr. Theron Dickinson MD Attending Provider Active Team Status: Inactive Member Role Status Dates Dr. Zhang Lawrence MD Primary Care Provider Active Dr. Prashanth Ansari DO Emergency Provider Active Team Status: Inactive Member Role Status Dates Dr. Zhang Lawrence MD Primary Care Provider Active Dr. Prashanth Ansari DO Attending Provider, Emergency Provider Active Team Status: Inactive Member Role Status Dates Dr. Zhang Lawrence MD Primary Care Provider Active Dr. José Nguyen MD Attending Provider, Emergency Provider Active Team Status: Active Member Role Status Dates Dr. Zhang Lawrence MD Primary Care Provider Active Dr. Yoly Paige MD Attending Provider Active Team Status: Inactive Member Role Status Dates Dr. Zhang Lawrence MD Primary Care Provider Active Chayo Batista PA, PA Attending Provider, Referr ing Provider Active Team Status: Active Member Role Status Dates Dr. Zhang Lawrence MD Primary Care Provider Active Dr. Thomas Garcia MD Attending Provider Active Team Status: Inactive Member Role Status Dates Dr. Zhang Lawrence MD Primary Care Provider, Referring Provider Active Dr. Jones Arias MD Attending Provider Active Team Status: Active Member Role Status Dates Dr. Thomas Bernard MD Primary Care Provider Active Team Status: Inactive Member Role Status Dates Dr. Zhang Lawrence MD Primary Care Provider Active Start: August 18, 2024 End: August 18, 2024 Iwona Mireles [employer], [employer]-C Attending Provider Active Start: August 18, 2024 End: August 18, 2024 Iwona Mireles [employer], [employer]-C Referring Provider Active Start: August 18, 2024 End: August 18, 2024 Team Status: Inactive Member Role Status Dates Dr. Thomas Bernard MD Primary Care Provider Active Start: September 21, 2024 End: September 21, 2024 Dr. Thomas Bernard MD Attending Provider Active St art: September 21, 2024 End: September 21, 2024 Dr. Thomas Bernard MD Referring Provider Active St art: September 21, 2024 End: September 21, 2024 Team Status: Inactive Member Role Status Dates Dr. Thomas Bernard MD Primary Care Provider Active Start: November 25, 2024 End: November 25, 2024 Dr. Viral Miller MD Attending Provider Active Start: November 25, 2024 End: November 25, 2024 Dr. Viral Miller MD Emergency Provider Active Start: November 25, 2024 End: November 25, 2024 Team Status: Inactive Member Role Status Dates Dr. Thomas Bernard MD Primary Care Provider Active Start: November 30, 2024 End: November 30, 2024 Sakshi Tejeda SP[employer], SPARE HAND CARDING-C Attending Provider Active Start: November 30, 2024 End: November 30, 2024 Sakshi Tejeda [employer], SPARE HAND CARDING-C Referring Provider Active Start: November 30, 2024 End: November 30, 2024 Team Status: Active Member Role/Relationship Status Dates Dr. Thomas Bernard MD Primary Care Provider Active Team Status: Inactive Member Role/Relationship Status Dates Dr. Zhang Lawrence MD Referring Provider Active Start: January 22, 2025 End: January 22, 2025 Iwona Mireles [employer], SP[employer] C[employer]-C Attending Provider Active Start: January 22, 2025 End: January 22, 2025 Dr. Thomas Bernard MD Primary Care Provider Active Start: January 22, 2025 End: January 22, 2025 Team Status: Inactive Member Role/Relationship Status Dates Dr. Thomas Bernard MD Primary Care Provider Active Start: March 27, 2025 End: March 27, 2025 Dr. Thomas Bernard MD Attending Provider Active St art: March 27, 2025 End: March 27, 2025 Dr. Thomas Bernard MD Referring Provider Active St art: March 27, 2025 End: March 27, 2025 Team Status: Active Member Role/Relationship Status Dates Dr. Thomas Bernard MD Primary care physician Active Team Status: Inactive Member Role/Relationship Status Dates Dr. Thomas Bernard MD Primary care physician Active Start: March 27, 2025 End: March 27, 2025 Dr. Thomas Bernard MD Attending physician Active S tart: March 27, 2025 End: March 27, 2025 Dr. Thomas Bernard MD Referring Provider Active St art: March 27, 2025 End: March 27, 2025 Team Status: Inactive Member Role/Relationship Status Dates Dr. Thomas Bernard MD Primary care physician Active Start: July 06, 2025 End: July 06, 2025 Dr. Thomas Bernard MD Referring Provider Active St art: July 06, 2025 End: July 06, 2025 CHRIS Burns Attending physician Active St art: July 06, 2025 End: July 06, 2025 FOR RECORDS PERTAINING TO PATIENTS WHO ARE OR HAVE BEEN ENROLLED IN A CHEMICAL DEPENDENCY/SUBSTANCEABUSE PROGRAM, SOME INFORMATION MAY BE OMITTED. This clinical summary was aggregated from multiple sources. Caution should be exercised in using it in the provision of clinical care. This summary normalizes information from multiple sources, and as a consequence, information in this document may materially change the coding, format and clinical context of patient data. In addition, data may be omitted in some cases. CLINICAL DECISIONS SHOULD BE BASED ON THE PRIMARY CLINICAL RECORDS. [employer] [facility]. provides no warranty or guarantee of the accuracy or completeness of information in this document.
[2025-09-26 17:43] LABS: Anion Gap 11 (7-18); BUN 19 mg/dL (4-19); BUN/Creat Ratio 21.2 RATIO (10-20); Calcium,Total 9.8 mg/dL (7.6-11.0); Carbon Dioxide 23.7 mmol/L (20.0-29.0); Chloride 104 mmol/L (96-106); Glucose 97 mg/dL (70-99); Potassium 4.2 mmol/L (3.5-5.1)
== END | disposition home or self-care (01) ==
LOC: MFPLAB 16:26
PROVIDERS: PCP Family Medicine; Visit Provider Family Medicine
DX: S46.912A Strain of unspecified muscle, fascia and tendon at shoulder and upper arm level, left arm, initial encounter (principal); X58.XXXA Exposure to other specified factors, initial encounter
CPT/HCPCS: 36415; 80048